=== PATIENT | female | born 1945 | race Caucasian/White ===

== ENCOUNTER → 2018-02-07 15:34 | Outpatient (CLI) | payer MEDICARE, OTHER, SELFPAY ==
--- NOTE | 2018-02-07 | DI.MRI.S_ITS ---
PROCEDURE: MR KNEE RT WO CON INDICATIONS: Right knee osteoarthritis TECHNIQUE: Noncontrast sagittal PD fast spin echo and T2 fast spin echo with fat saturation, sagittal 3-D FLASH with fat saturation; coronal T1 spin echo and PD fast spin echo with fat saturation, and axial PD fast spin echo with fat saturation through the knee. COMPARISON: [facility], MR, KNEE WITHOUT CONTRAST, 01/21/2016, 16:56. [facility], MR, KNEE WITHOUT CONTRAST, 01/21/2016, 16:33. FINDINGS: Image quality: Excellent. Menisci: The medial and lateral menisci demonstrate mild to moderate degenerative morphology and internal signal. A meniscal tear is not seen, however The meniscal root ligaments appear intact. Cruciate ligaments: The anterior and posterior cruciate ligaments appear intact. Medial structures: The medial collateral ligament appears intact. The posterior oblique ligament, semimembranosus tendon insertions, oblique popliteal ligament, and meniscocapsular junction appear intact. Visualized portions of the pes anserinus tendons appear normal. No abnormal bursal fluid. Lateral structures: The lateral collateral ligament, long and short heads of the biceps femoris tendon appear intact. The popliteus tendon appears normal; the popliteofibular ligament appears intact. The posterosuperior and anteroinferior popliteomeniscal fascicles appear intact. The arcuate and fabellofibular ligaments appear intact, on either side of the lateral inferior geniculate artery. Iliotibial band appears normal. Anterior structures: The quadriceps and patellar tendons appear intact. Patellar alignment is normal. No femoral trochlear dysplasia or ventral trochlear prominence. No edema in the infrapatellar fat pad. Bones and cartilage: No bone marrow contusions or fractures. The cartilage of the medial and lateral femorotibial compartments, as well as the patellofemoral compartment, appears moderately regressed in thickness. Joint space: There is a moderate excess of knee joint fluid without visualized intra-articular loose body. There is a small posterior medial Elam's cyst and immediately adjacent synovial protrusion more medially. Normal appearing synovial plicae are incidentally noted. IMPRESSION: Moderate degeneration involves the medial and lateral meniscus without meniscal tear. There is a moderate degree of degenerative knee joint osteoarthritis with joint with thinning involving all compartments, and with an associated moderate joint effusion. No intra-articular loose body is seen. The degree of degeneration appears to mildly worsened from 5/5/16 comparison MRI. No ligamentous disruption is found. As noted above there is a relatively small Elam's cyst and medial synovial protrusion at the posterior medial knee, previously present without significant increase in size over time from 2016 Dictated by: Donald Beck M.D. on 02/07/2018 at 16:57 Approved by: Donald Beck M.D. on 02/07/2018 at 17:05
== END ==
PROVIDERS: PCP Physician Assistant; Visit Provider Orthopaedic Surgery
DX: M17.11 Unilateral primary osteoarthritis, right knee (principal); M71.21 Synovial cyst of popliteal space [Baker], right knee
CPT/HCPCS: 73721

== ENCOUNTER → 2018-02-21 07:23 | Outpatient (CLI) | payer MEDICARE, OTHER, SELFPAY ==
--- NOTE | 2018-02-21 07:26 | DI.MRI.S_ITS ---
PROCEDURE: MR LUMBAR SPINE WO CON INDICATIONS: Lumbar Stenosis with Bilateral LE symptoms TECHNIQUE: Noncontrast sagittal T1 spin echo and T2 fast echo, sagittal STIR, axial T1 and T2 fast spin echo through the lumbar spine. In cases with scoliosis, additional coronal T2 fast spin echo may be performed. COMPARISON: [facility], , L-SPINE WITHOUT CONTRAST, 03/03/2014, 7:18. FINDINGS: Image quality: Excellent. Alignment and Curvature: There is normal bony alignment. Bone Marrow: Marrow is of normal overall signal. No acute vertebral body compression fractures. Spinal Cord: Conus medullaris terminates at the T12 level. Visualized cord demonstrates normal signal and size. Paraspinous Soft Tissues: No paravertebral masses. L1-L2: Mild disc bulge. Mild facet and ligamentum flavum hypertrophy. No canal stenosis. No foraminal narrowing. These findings are unchanged when compared with the prior MRI dated 03/03/14. L2-L3: Mild disc bulge. Mild facet ligamentum flavum hypertrophy. No canal stenosis. No foraminal stenosis. L3-L4: Mild disc desiccation and height loss. Broad-based disc bulge. Mild facet and ligamentum flavum hypertrophy. These findings are unchanged. L4-L5: Broad-based disc bulge. Mild facet and ligamentum flavum hypertrophy. No canal stenosis or foraminal narrowing. Stable findings from the prior study. L5-S1: Mild disc bulge. Moderate facet and ligamentum flavum hypertrophy. The degree of facet hypertrophy is slightly increased when compared with the prior study. No canal stenosis or neuroforaminal stenosis. IMPRESSION: 1. No canal stenosis or foraminal stenosis of the lumbar spine. 2. Mild facet and ligamentum flavum hypertrophy slightly increased in extent at L5-S1 when compared with the study dated 03/03/14. Dictated by: Ashanti Cavanaugh M.D. on 02/21/2018 at 8:39 Approved by: Ashanti Cavanaugh M.D. on 02/21/2018 at 8:46
== END ==
PROVIDERS: PCP Physician Assistant; Visit Provider Physical Medicine & Rehabilitation
DX: M48.061 Spinal stenosis, lumbar region without neurogenic claudication (principal); M46.06 Spinal enthesopathy, lumbar region
CPT/HCPCS: 72148

== ENCOUNTER → 2018-02-26 08:16 | Outpatient (CLI) | payer MEDICARE, OTHER, SELFPAY ==
[2018-02-26 09:26] LABS: Cholesterol 152 mg/dL (140-199); HDL Cholesterol 62 mg/dL (40-60); LDL Cholesterol Calculated 78 mg/dL (<100); Triglycerides 62 mg/dL (35-150)
== END ==
PROVIDERS: PCP Physician Assistant; Visit Provider Physician Assistant
DX: E78.5 Hyperlipidemia, unspecified (principal)
CPT/HCPCS: 36415; 80061

== ENCOUNTER → 2018-05-04 12:37 | Outpatient (CLI) | payer MEDICARE, OTHER, SELFPAY ==
--- NOTE | 2018-05-04 | DI.MRI.S_ITS ---
PROCEDURE: MR CERVICAL SPINE WO CON INDICATIONS: CERVICAL SPINE PAIN TECHNIQUE: Noncontrast sagittal T1 spin echo and T2 fast spin echo, sagittal STIR, foraminal oblique sagittal T2 fast spin echo, and axial gradient echo or T2 fast spin echo through the cervical spine. COMPARISON: None. FINDINGS: Image quality: Excellent. Alignment and Curvature: There is loss of normal lumbar lordosis, and otherwise normal bony alignment. Bone Marrow: Marrow demonstrates normal overall signal. There is mild reactive signal within the endplates adjacent to the C3-C4, C4-C5, C5-C6, and C6-C7 intervertebral discs. Spinal Cord: Visualized spinal cord has normal size and signal. No cerebellar tonsillar herniation. Paraspinous Soft Tissues: No paravertebral masses. Prevertebral soft tissues are normal in thickness. C2-C3: There is mild disc desiccation and diffuse disc bulge. Mild facet and uncovertebral hypertrophy, right greater than left. There is mild canal stenosis. Mild right foraminal stenosis. No left foraminal stenosis. C3-C4: Mild disc desiccation and diffuse disc bulge superimposed right posterior lateral protrusion. Right greater than left facet and uncovertebral hypertrophy. Mild canal stenosis. Moderate right and mild left foraminal stenosis. C4-C5: Moderate disc desiccation and diffuse disc bulge with superimposed left posterolateral protrusion. Mild disc height loss. Bilateral facet and uncovertebral hypertrophy. Mild canal stenosis. Severe left and moderate right foraminal stenosis. C5-C6: Moderate disc height loss and desiccation. Moderate diffuse disc bulge with superimposed right paracentral and posterolateral protrusion/osteophyte. Bilateral facet and uncovertebral hypertrophy. Moderate canal stenosis. Minimal right anterior cord flattening. Mild left and moderate right foraminal stenosis. C6-C7: Moderate disc height loss and desiccation. Moderate diffuse disc bulge/osteophyte. Mild facet and uncovertebral hypertrophy bilaterally. Mild canal stenosis. Mild foraminal stenosis bilaterally. C7-T1: Disc desiccation. Mild facet hypertrophy bilaterally. No significant canal, nor foraminal stenosis. IMPRESSION: 1. Multilevel degenerative disc and facet disease, as well as uncovertebral hypertrophy. 2. Multilevel canal stenoses, worst at C5-C6, where there is minimal cord flattening. 3. Multilevel foraminal stenoses, worst at C3-C4 on the right, at C4-C5 left greater than right, and at C5-C6 on the right. Dictated by: Kobe Ramírez M.D. on 05/04/2018 at 14:23 Approved by: Kobe Ramírez M.D. on 05/04/2018 at 14:28
== END ==
PROVIDERS: PCP Physician Assistant; Visit Provider Physical Medicine & Rehabilitation
DX: M50.31 Other cervical disc degeneration, high cervical region (principal); M48.02 Spinal stenosis, cervical region
CPT/HCPCS: 72141

== ENCOUNTER → 2018-12-10 07:58 | Outpatient (CLI) | payer MEDICARE, OTHER, SELFPAY ==
[2018-12-10 09:22] LABS: Alanine Aminotransferase 25 IU/L (9-52); Albumin 4.1 g/dL (3.5-5.0); Albumin Globulin Ratio 1.6 (1.0-2.8); Alkaline Phosphatase 39 U/L (38-126); Aspartate Aminotransferase 19 IU/L (14-36); BUN Creatinine Ratio 26.7 (6-22); Bilirubin Total 0.6 mg/dL (0.2-1.3); Blood Urea Nitrogen 24 mg/dL (7-17); Carbon Dioxide 30 mmol/L (22-32); Chloride 100 mmol/L (98-107); Cholesterol 147 mg/dL (140-199); Estimated Glomerular Filt Rate > 60.0 mL/min (>60); Globulin 2.6 g/dL (1.7-4.1); Glucose 98 mg/dL (80-110); HDL Cholesterol 53 mg/dL (40-60); HEMOLYSIS < 15 (0-50); LDL Cholesterol Calculated 80 mg/dL (<100); Potassium 3.8 mmol/L (3.4-5.1); Sodium 139 mmol/L (137-145); Total Protein 6.7 g/dL (6.3-8.2); Triglycerides 72 mg/dL (35-150); Uric Acid 7.6 mg/dL (2.5-6.2)
[2018-12-10 09:40] LABS: Creatinine Urine Random 39.7 mg/dL
[2018-12-10 09:46] LABS: Microalbumi Creatinin Ratio Ur 15.1 ug/mg CR (<30); Microalbumin Urine Random < 0.6 mg/dL (0-1.6)
== END ==
PROVIDERS: PCP Physician Assistant; Visit Provider Physician Assistant
DX: E78.5 Hyperlipidemia, unspecified (principal); E79.0 Hyperuricemia without signs of inflammatory arthritis and tophaceous disease; I10 Essential (primary) hypertension; R73.01 Impaired fasting glucose
CPT/HCPCS: 80053; 80061; 82043; 82570; 84550

== ENCOUNTER → 2019-01-07 12:08 | Outpatient (CLI) | payer MEDICARE, OTHER, SELFPAY ==
--- NOTE | 2019-01-07 | DI.MG.S_ITS ---
BILATERAL DIGITAL SCREENING MAMMOGRAM 3D/2D WITH CAD: 01/07/2019 CLINICAL: Routine screening. Comparison is made to exams dated: 12/20/2017 mammogram, 11/28/2016 mammogram, and 11/24/2015 mammogram - [facility]. The tissue of both breasts is predominantly fatty. Current study was also evaluated with a Computer Aided Detection (CAD) system. No significant masses, calcifications, or other findings are seen in either breast. There has been no significant interval change. IMPRESSION: NEGATIVE There is no mammographic evidence of malignancy. A 1 year screening mammogram is recommended. This exam was interpreted at Station ID: [id number]. NOTE: For mammograms, a report in lay terms will be sent to the patient. Approximately 15% of breast malignancies will not be visualized mammographically. In the management of a palpable breast mass, a negative mammogram must not discourage biopsy of a clinically suspicious lesion. Electronically Signed By: Ashanti hart/garima:01/07/2019 15:13:17 letter sent: Normal Exam ACR BI-RADS Category 1: Negative 3341F
== END ==
PROVIDERS: PCP Physician Assistant; Visit Provider Physician Assistant
DX: Z12.31 Encounter for screening mammogram for malignant neoplasm of breast (principal)
CPT/HCPCS: 77063; 77067

== ENCOUNTER → 2019-03-27 08:12 | Outpatient (CLI) | payer MEDICARE, OTHER, SELFPAY ==
--- NOTE | 2019-03-27 08:16 | DI.RAD.S_ITS ---
PROCEDURE: XR LUMBAR SPINE MIN 4V INDICATIONS: lumbar axial back pain TECHNIQUE: 5 views of the lumbar spine acquired. COMPARISON: [facility], , L-SPINE 2-3 VIEWS, 11/15/2013, 10:31. FINDINGS: Bones: 5 nonrib-bearing vertebrae are present. There is normal bony alignment. No vertebral body compression fractures. No suspicious bony lesions. Mild degenerative disc disease is seen along the thoracolumbar junction and lumbosacral spine. This has only slightly worsened from the comparison study 11/15/13. No subluxation is associated Soft tissues: Overlying bowel gas pattern is normal. No suspicious soft tissue calcifications. Flexion/extension: There is normal range of motion, with preserved normal alignment. IMPRESSION: Mild degenerative disc disease and facet osteoarthritis along the thoracolumbar junction and lumbosacral spine without evidence of compression fracture or subluxation having developed in the interval. Major degenerative changes are most prominent at L4-5 and especially L5-S1 where spinal and foraminal stenosis likely is present. Dictated by: Donald Beck M.D. on 03/27/2019 at 9:37 Approved by: Donald Beck M.D. on 03/27/2019 at 9:38
== END ==
PROVIDERS: Family Provider Physician Assistant; PCP Physician Assistant; Visit Provider Registered Nurse
DX: M54.5 Low back pain (principal); M51.35 Other intervertebral disc degeneration, thoracolumbar region; M51.37 Other intervertebral disc degeneration, lumbosacral region; M47.815 Spondylosis without myelopathy or radiculopathy, thoracolumbar region; M47.816 Spondylosis without myelopathy or radiculopathy, lumbar region; M47.817 Spondylosis without myelopathy or radiculopathy, lumbosacral region
CPT/HCPCS: 72110

== ENCOUNTER 2019-04-04 12:27 | Outpatient (CLI) | payer MEDICARE, OTHER, SELFPAY ==
[2019-04-04] VITALS (8 sets, daily range): BP systolic 110–135; BP diastolic 66–76; PULSE 62–77; RESP 16–20; TEMP 36.7; O2SAT 97–100
--- NOTE | 2019-04-04 12:28 | DI.RAD.S_ITS ---
PROCEDURE: PAIN L/SI FACET INJ/BLK 1STL INDICATIONS: SPONDYLOSIS FINDINGS: Fluoroscopic spot filming was performed to verify placement of spinal needles at the L4-5, L5-S1 level(s), as labeled on the films. Appropriate location(s) of the needle tip(s) was confirmed by injection of iodinated contrast. Dictated by: Freddy Rivas M.D. on 04/04/2019 at 14:44 Approved by: Freddy Rivas M.D. on 04/04/2019 at 14:44
[2019-04-04] MEDS: MIDAZOLAM 5 MG/5 ML VIAL IV (13:30)
--- NOTE | 2019-04-04 13:41 | PC.NURSE ---
Pt tolerated procedure well. Able to get off table with 2 person standby assist. Transferred pt via wheelchair to pre procedure room for continued monitoring with Sulma MELENDEZ.
--- NOTE | 2019-04-04 13:45 | P.PCN_ITS ---
Procedures Date/Time Date of procedure: 04/04/19 Time of procedure: 13:44 General Procedure description: PREOP DIAGNOSIS 1. FACET ARTHROPATHY, 2. AXIAL LBP, 3. MULTILEVEL DDD, POST OP DIAGNOSIS 1. FACET ARTHROPATHY, 2. AXIAL LBP, 3. MULTILEVEL DDD, PROCEDURES 1. FLUORSCOPICALLY GUIDED CONTRAST CONTROLLED FACET JOINT INJECTIONS LEFT L4/5, L5/S1 SURGEON: Héctor Perez, DO INDICATIONS Christen is referred by ANUJ Matthews for treatment of Axial LBP FINDINGS Multilevel Facet Arthropathy with Clinically significant axial LBP DESCRIPTION OF PROCEDURE Fluoroscopically guided, contrast-controlled left L4/5, L5/S1 facet joint injections. Following review of allergy and review of potential side effects and complications, including, but not necessarily limited to, infection, allergic reaction, local tissue breakdown, stroke, temporary or permanent nerve injury, paralysis, and possible , the patient indicated that the patient understood and agreed to proceed. An informed consent document was signed by the patient, witnessed by a nurse, and placed in the patient's chart. Additionally, other treatment options including medications, modalities, and physical therapy were reviewed with the patient. After review of previous anaesthesic history and IV conscious sedation the patient was deemed safe to proceed with todays procedure with IV conscious sedation as ASA class II designation. Safety time-out was performed to confirm patient ID, procedure to be performed and site of procedure. IV sedation was accomplished with a combination of 2mg of Versed was administered by the RN after DO order, titrated to patient comfort during the course of the procedure while the patient remained responsive to all verbal commands. In the prone position, following sterile prep and drape of the lumbar region, the posterior aspect of the left L4/5, L5/S1 facet joints were identified fluoroscopically. The skin was anesthetized via a 25-gauge 1.5-inch needle with 1% lidocaine solution into the corresponding facet joints. At this point, a 22- gauge 3.5-inch spinal needle was atraumatically introduced and advanced under fluoroscopic guidance into the corresponding facet joints. Following negative aspiration, injections of approximately 0.2-cc of Isovue 200 confirmed interarticular placement without vascular uptake. Radiological data, including multiple fluoroscopic views of the lumbosacral spine, reveal a spinal needle at the left L4/5, L5/S1 facet joints. Subsequent views show flow of contrast material both superiorly and inferiorly within the joint space without vascular or intrathecal uptake. At this point, a total of 0.5 cc including a mixture of 0.25cc Marcaine and 0.25cc betamethasone was injected without complication into each of the corresponding facet joints. The procedure tolerated the procedure well without signs or symptoms of complications prior to transfer to the recovery area continued monitoring without incident. The patient was then transferred to the recovery area where they were observed for an appropriate period of time after the injection. The patient reported a VAS score of 7 prior to the procedure and a post-procedure VAS of 0. Total Fluoroscopy Time: 12.7 seconds Total Conscious Sedation Time: 24min POST OP INSTRUCTIONS The patient was provided a Pain Log to continue to record their response to the target-specific procedure prior to follow-up visit with their referring physician. Additionally, specific post-injection care instructions and a contact number to our office were provided if concerns arise regarding possible complications associated with the procedure are suspected. Héctor Perez, Complications: none
[2019-04-04] MEDS: BUPIVACAINE 0.5% (PF) VIAL 2 ML INJ (13:49)
[2019-04-04] MEDS: IOPAMIDOL 15 ML VIAL 3 ML INJ (13:49)
[2019-04-04] MEDS: LIDOCAINE 1% 20 ML INJ 5 ML INJ (13:50)
[2019-04-04] MEDS: BETAMETHASONE 30 MG/5 ML MDV 12 MG INJ (13:50)
== END 2019-04-04 14:06 ==
LOC: RAD 12:28
PROVIDERS: Family Provider Physician Assistant; PCP Physician Assistant; Visit Provider Physical Medicine & Rehabilitation
DX: M47.816 Spondylosis without myelopathy or radiculopathy, lumbar region (principal); M47.817 Spondylosis without myelopathy or radiculopathy, lumbosacral region; M54.5 Low back pain; M51.36 Other intervertebral disc degeneration, lumbar region
CPT/HCPCS: 64493; 64494; 99152; J0702; J2250; J3010

== ENCOUNTER → 2019-04-18 09:33 | Outpatient (CLI) | payer MEDICARE, OTHER, SELFPAY ==
--- NOTE | 2019-04-18 09:35 | DI.RAD.S_ITS ---
PROCEDURE: XR HIP W PEL IF DONE LT MIN 4V INDICATIONS: left hip pain TECHNIQUE: AP pelvis with lateral view(s) of the bilateral hip(s). COMPARISON: [facility], , HIP 2V LEFT, 03/03/2014, 7:57. [facility], , HIP 2V LEFT, 11/07/2012, 12:48. FINDINGS: Bones: No fractures or dislocations. Pelvic ring appears intact. No suspicious bony lesions. Soft tissues: The visualized bowel gas pattern is normal. No suspicious soft tissue calcifications. IMPRESSION: Mild degenerative hip joint osteoarthritis is indicated by slight reduction in the hip joint interspace. No trauma phalan, either acute or chronic. Dictated by: Donald Beck M.D. on 04/18/2019 at 10:14 Approved by: Donald Beck M.D. on 04/18/2019 at 10:15
== END ==
PROVIDERS: Family Provider Physician Assistant; PCP Physician Assistant; Visit Provider Registered Nurse
DX: M25.552 Pain in left hip (principal); M70.62 Trochanteric bursitis, left hip; M16.12 Unilateral primary osteoarthritis, left hip; M47.817 Spondylosis without myelopathy or radiculopathy, lumbosacral region; M47.27 Other spondylosis with radiculopathy, lumbosacral region; M17.11 Unilateral primary osteoarthritis, right knee; M48.02 Spinal stenosis, cervical region; M70.61 Trochanteric bursitis, right hip; M50.30 Other cervical disc degeneration, unspecified cervical region; M85.80 Other specified disorders of bone density and structure, unspecified site; M70.72 Other bursitis of hip, left hip; D12.6 Benign neoplasm of colon, unspecified; I10 Essential (primary) hypertension; E78.5 Hyperlipidemia, unspecified; E79.0 Hyperuricemia without signs of inflammatory arthritis and tophaceous disease
CPT/HCPCS: 73522; 99214

== ENCOUNTER 2019-05-23 13:55 | Outpatient (CLI) | payer MEDICARE, OTHER, SELFPAY ==
--- NOTE | 2019-05-23 13:58 | DI.RAD.S_ITS ---
PROCEDURE: PAIN L/S TRANSFORAMINAL INJECT INDICATIONS: SPONDYLOSIS FINDINGS: Fluoroscopic spot filming was performed to verify placement of spinal needles at the L5-S1 level(s), as labeled on the films. Appropriate location(s) of the needle tip(s) was confirmed by injection of iodinated contrast. IMPRESSION: Fluoroscopy for pain management. Dictated by: Mee Mc M.D. on 05/23/2019 at 15:17 Approved by: Mee Mc M.D. on 05/23/2019 at 15:17
[2019-05-23 14:26] VITALS: BP 128/67; PULSE 70; RESP 16; O2SAT 97
[2019-05-23] MEDS: fentaNYL 100 MCG/2 ML INJ 50 MCG IV (14:27)
[2019-05-23] MEDS: MIDAZOLAM 5 MG/5 ML VIAL IV (14:27)
[2019-05-23 14:30] VITALS: BP 120/63; PULSE 69; RESP 16; O2SAT 95
[2019-05-23 14:34] VITALS: BP 107/69; PULSE 64; RESP 16; O2SAT 95
[2019-05-23] MEDS: DEXAMETHASONE 10 MG/ML VIAL 20 MG INJ (14:34)
[2019-05-23] MEDS: IOPAMIDOL 15 ML VIAL 3 ML INJ (14:34)
[2019-05-23] MEDS: BUPIVACAINE 0.25% (PF) VIAL 2 ML INJ (14:34)
[2019-05-23] MEDS: BETAMETHASONE 30 MG/5 ML MDV 6 MG INJ (14:34)
--- NOTE | 2019-05-23 14:35 | PC.NURSE ---
ASSISTING PT OFF TABLE AND TRANSPORTING TO POST PROC AREA IN STABLE CONDITION. PT CARE HANDED OFF TO Rosemary SCOTT RN
--- NOTE | 2019-05-23 14:37 | P.PCN_ITS ---
Procedures Date/Time Date of procedure: 05/23/19 Time of procedure: 14:37 General Procedure description: PREOP DIAGNOSIS 1. FORMAINAL STENOSIS WITH LE SYMPTOMS POST OP DIAGNOSIS 1. FORMAINAL STENOSIS WITH LE SYMPTOMS PROCEDURES 1. FLUOROSCOPICALLY GUIDED CONTRAST CONTROLLED TRANSFORAMINAL EPIDURAL STEROID INJECTION - Left L5/S1 PHYSICIAN: Héctor Perez DO INDICATIONS: Christen is referred by PAC Byron for treatment of Foraminal Stenosis with Left LE Symptoms FINDINGS Foraminal Nerve Root Compression secondary to disc disease and facet hypertrophy DESCRIPTION OF PROCEDURE: Following review of allergy and review of potential side effects and complications, including, but not necessarily limited to, infection, allergic reaction, local tissue breakdown, stroke, temporary or permanent nerve injury, paralysis, and possible , the patient indicated that the patient understood and agreed to proceed. An informed consent document was signed by the patient, witnessed by a nurse, and placed in the patient's chart. Additionally, other treatment options including medications, modalities, and physical therapy were reviewed with the patient. After review of previous anaesthesic history and IV conscious sedation the pat ient was deemed safe to proceed with todays procedure with IV conscious sedation as ASA class II designation. Safety time-out was performed to confirm patient ID, procedure to be performed and site of procedure. IV sedation was accomplished with a combination of 2mg of Versed and 50mcg of Fentanyl was administered by the RN after DO order, titrated to patient comfort during the course of the procedure while the patient remained responsive to all verbal commands In the prone position following sterile prep and drape of the lumbar region, the Left L5/S1 posterior neuroforamen was identified fluoroscopically. The skin was anesthetized via a 25-gauge 1.5-inch needle with 1% lidocaine solution. At this point, a 25-gauge 3.5-inch spinal needle was atraumatically introduced and advanced under fluoroscopic guidance through the posterior Left L5/S1 neuroforamen to approximately the anterior aspect of the canal. Depth was confirmed on lateral view. Following negative aspiration, injection of approximately 1.5 cc of Isovue 200 under live fluoroscopy in the AP view confirmed excellent flow along the nerve root, into the epidural space without vascular or intrathecal uptake observed Radiological data, including multiple fluoroscopic views of the lumbosacral spine, reveal a spinal needle at the Left L5/S1 posterior neuroforamen. Subsequent views show flow of contrast material flowing superiorly and inferiorly along the nerve root confirming epidural flow. Subsequently, a test dose of 1.5 cc of 1% lidocaine solution was administered and patient was observed for two minutes for signs or symptoms of complications, including abdominal pain, shortness of breath, bilateral upper or lower extremity weakness, nausea and vomiting, prior to steroid injection. At this point, a total of 3cc or 20mg of dexamethasone and 6mg of betamethasone was injected without incident. The procedure tolerated the procedure well without signs or symptoms of complications prior to transfer to the recovery area continued monitoring without incident. The patient was then transferred to the recovery area where they were observed for an appropriate time after the injection. The patient reported a VAS score of 7 prior to the procedure and a post-procedure VAS of 0. Total Fluoroscopy Time: 20.9 seconds Total Conscious Sedation Time: 24min POST OP INSTRUCTIONS The patient was provided a Pain Log to continue to record their response to the target-specific procedure prior to follow-up visit with their referring physician. Additionally, specific post-injection care instructions and a contact number to our office were provided if concerns arise regarding possible complications associated with the procedure are suspected. Héctor Perez DO Complications: none
[2019-05-23 14:45] VITALS: BP 108/61; PULSE 96; RESP 16; O2SAT 95
[2019-05-23 14:50] VITALS: BP 104/66; PULSE 61; RESP 16; O2SAT 96
[2019-05-23 14:54] VITALS: BP 102/60; PULSE 60; RESP 16; O2SAT 94
--- NOTE | 2019-05-23 15:05 | PC.NURSE ---
Patient back from procedure via w/c at 1430. Patient alert and able to move from w/c to chair w2ith standby assist. Braeden RN taking over monitoring.
== END 2019-05-23 15:09 | disposition home or self-care (01) ==
LOC: RAD 13:56
PROVIDERS: Family Provider Physician Assistant; PCP Physician Assistant; Visit Provider Physical Medicine & Rehabilitation
DX: M48.07 Spinal stenosis, lumbosacral region (principal); M51.17 Intervertebral disc disorders with radiculopathy, lumbosacral region; M47.27 Other spondylosis with radiculopathy, lumbosacral region
CPT/HCPCS: 64483; 99152; J0702; J1100; J2250; J3010

== ENCOUNTER → 2019-06-26 07:57 | Outpatient (CLI) | payer MEDICARE, OTHER, SELFPAY ==
[2019-06-26 09:21] LABS: BUN Creatinine Ratio 25.6 (6-22); Blood Urea Nitrogen 23 mg/dL (7-17); Calcium 10.6 mg/dL (8.4-10.2); Carbon Dioxide 32 mmol/L (22-32); Chloride 101 mmol/L (98-107); Estimated Glomerular Filt Rate > 60.0 mL/min (>60); Glucose 92 mg/dL (80-110); HEMOLYSIS < 15 (0-50); Potassium 3.8 mmol/L (3.4-5.1); Sodium 141 mmol/L (137-145)
== END ==
PROVIDERS: PCP Physician Assistant; Visit Provider Physician Assistant
DX: E78.5 Hyperlipidemia, unspecified (principal); I10 Essential (primary) hypertension
CPT/HCPCS: 36415; 80048

== ENCOUNTER → 2019-07-29 08:38 | Outpatient (CLI) | payer MEDICARE, OTHER, SELFPAY ==
[2019-07-29 10:04] LABS: Calcium 9.7 mg/dL (8.4-10.2)
[2019-07-29 10:45] LABS: Creatinine Urine Random 23.7 mg/dL
[2019-07-29 10:52] LABS: Microalbumi Creatinin Ratio Ur 25.3 ug/mg CR (<30); Microalbumin Urine Random < 0.6 mg/dL (0-1.6)
[2019-07-31 13:44] LABS: Ionized Calcium 5.3 mg/dL (4.8-5.6)
[2019-08-02 15:45] LABS: Parathyroid Hormone Int 20 pg/mL (14-64)
== END ==
PROVIDERS: PCP Physician Assistant; Visit Provider Physician Assistant
DX: E83.52 Hypercalcemia (principal); I10 Essential (primary) hypertension
CPT/HCPCS: 36415; 82043; 82310; 82330; 82570; 83970

== ENCOUNTER → 2019-11-21 15:34 | Outpatient (CLI) | payer MEDICARE, OTHER, SELFPAY ==
--- NOTE | 2019-11-21 | DI.MRI.S_ITS ---
PROCEDURE: MR LUMBAR SPINE WO CON INDICATIONS: Other intervertebral disc degeneration TECHNIQUE: Noncontrast sagittal T1 spin echo and T2 fast echo, sagittal STIR, axial T1 and T2 fast spin echo through the lumbar spine. In cases with scoliosis, additional coronal T2 fast spin echo may be performed. COMPARISON: [facility], MR, MR LUMBAR SPINE WO CON, 02/21/2018, 7:41. FINDINGS: Image quality: Excellent. Alignment and Curvature: There is trace retrolisthesis of L2 on L3, L3 on L4, trace anterolisthesis of L4-L5 and L5 on S1, unchanged. Bone Marrow: Marrow is of normal overall signal. Schmorl's node with very minimal surrounding reactive marrow edema is present along the inferior endplate of L3 as well as oral. No acute vertebral body compression fractures. Spinal Cord: Conus medullaris terminates at the L1 level. Visualized cord demonstrates normal signal and size. Paraspinous Soft Tissues: No paravertebral masses. Right renal cyst is noted. Discs: Mild to moderate desiccation is present from L2-3 through L5-S1, minimal to mild at L1-L2. L1-L2: Minimal disc bulge without spinal stenosis or foraminal narrowing. Mild facet and ligamentum flavum hypertrophy. No interval change. L2-L3: Minimal disc bulge without spinal stenosis or foraminal narrowing. No interval change. Minimal epidural lipomatosis. L3-L4: Minimal disc bulge without spinal stenosis. Minimal to mild right foraminal narrowing, slightly progressive. Facet and ligamentum flavum hypertrophy are present as well as epidural lipomatosis. L4-L5: Mild disc bulge with minimal spinal stenosis. No foraminal narrowing. No interval change. L5-S1: Mild disc bulge without spinal stenosis. No foraminal narrowing. Facet and ligamentum flavum hypertrophy are present slightly more prominent. IMPRESSION: 1. Relatively stable interval examination demonstrate multiple levels of relatively mild degenerative change. 2. Foraminal narrowing is most prominent at L3-4 secondary to facet arthropathy. Dictated by: Krupa Boateng M.D. on 11/21/2019 at 17:57 Approved by: Krupa Boateng M.D. on 11/21/2019 at 18:02
== END ==
PROVIDERS: PCP Physician Assistant; Referring Provider Orthopaedic Surgery; Visit Provider Orthopaedic Surgery
DX: M51.36 Other intervertebral disc degeneration, lumbar region (principal); M47.816 Spondylosis without myelopathy or radiculopathy, lumbar region; M48.061 Spinal stenosis, lumbar region without neurogenic claudication
CPT/HCPCS: 72148

== ENCOUNTER → 2020-01-30 09:28 | Outpatient (CLI) | payer MEDICARE, OTHER, SELFPAY ==
[2020-01-31 01:29] LABS: COVID19 Sendout Not Detected (Not Detect)
== END ==
PROVIDERS: PCP Physician Assistant; Visit Provider Family Medicine
DX: Z01.812 Encounter for preprocedural laboratory examination (principal)
CPT/HCPCS: 87635

== ENCOUNTER → 2020-03-18 07:35 | Outpatient (CLI) | payer MEDICARE, OTHER, SELFPAY ==
--- NOTE | 2020-03-18 | DI.MG.S_ITS ---
BILATERAL DIGITAL SCREENING MAMMOGRAM 3D/2D WITH CAD: 03/18/2020 CLINICAL: Routine screening. Comparison is made to exams dated: 01/07/2019 mammogram, 12/20/2017 mammogram, and 11/28/2016 mammogram - [facility]. The tissue of both breasts is predominantly fatty. Current study was also evaluated with a Computer Aided Detection (CAD) system. There are benign calcifications in both breasts. There also are benign vascular calcifications in both breasts. No significant masses, calcifications, or other findings are seen in either breast. There has been no significant interval change. IMPRESSION: There is no mammographic evidence of malignancy. A 1 year screening mammogram is recommended. This exam was interpreted at Station ID: [id number]. NOTE: For mammograms, a report in lay terms will be sent to the patient. Approximately 15% of breast malignancies will not be visualized mammographically. In the management of a palpable breast mass, a negative mammogram must not discourage biopsy of a clinically suspicious lesion. Electronically Signed By: Papo khan/garima:03/18/2020 13:56:43 letter sent: Normal Exam ACR BI-RADS Category 2: Benign Finding(s) 3342F
[2020-03-18 08:04] LABS: Bacteria Urine None Seen
[2020-03-18 08:23] LABS: Hematocrit 39.6 % (36-46); Hemoglobin 13.8 g/dL (12.0-16.0); Mean Corpuscular HGB Conc 34.8 % (30-36); Mean Corpuscular Hemoglobin 32.2 PG (26-34); Mean Corpuscular Volume 92.7 fL (80-100); Platelet Count 187 X10^3/uL (150-400); Red Blood Cell Count 4.28 X10^6/uL (4.0-5.2); Red Cell Distribution Width 14.1 % (11.6-14.8)
[2020-03-18 08:32] LABS: Appearance Urine UA CLEAR; Bilirubin Urine UA NEGATIVE (NEGATIVE); Color Urine UA YELLOW; Glucose Urine UA NEGATIVE (Negative); Ketones Urine UA NEGATIVE (NEGATIVE); Leukocyte Esterase Urine UA 2+ (NEGATIVE); Nitrite Urine UA NEGATIVE (Negative); Occult Blood Urine UA TRACE-LYSED (Negative); Protein Urine UA NEGATIVE (Negative); Specific Gravity Urine UA <=1.005 (1.000-1.035); Urobilinogen Urine UA 0.2 E.U./dL (0.2)
[2020-03-18 08:44] LABS: RBC Urine 1-5/HPF (0-5/HPF); pH Urine UA 6.5 (4.5-8.0)
[2020-03-18 08:45] LABS: Creatinine Urine Random 39.8 mg/dL; Culture Indicated Urine Cult Not Indicated; Squamous Epithelial Cell Urine 1-5 /HPF (0-5/HPF); WBC Urine 5-10/HPF (0-5/HPF)
[2020-03-18 08:54] LABS: Microalbumin Urine Random < 0.6 mg/dL (0-1.6)
[2020-03-18 08:58] LABS: Alanine Aminotransferase 18 IU/L (<35); Albumin 3.8 g/dL (3.5-5.0); Albumin Globulin Ratio 1.5 (1.0-2.8); Alkaline Phosphatase 46 U/L (38-126); Aspartate Aminotransferase 21 IU/L (14-36); BUN Creatinine Ratio 23.5 (6-22); Bilirubin Total 0.6 mg/dL (0.2-1.3); Blood Urea Nitrogen 19 mg/dL (7-17); Calcium 9.8 mg/dL (8.4-10.2); Carbon Dioxide 31 mmol/L (22-32); Chloride 101 mmol/L (98-107); Cholesterol 143 mg/dL (140-199); Estimated Glomerular Filt Rate > 60.0 mL/min (>60); Globulin 2.6 g/dL (1.7-4.1); Glucose 108 mg/dL (80-110); HDL Cholesterol 45 mg/dL (40-60); HEMOLYSIS < 15 (0-50); LDL Cholesterol Calculated 86 mg/dL (<100); Potassium 4.4 mmol/L (3.4-5.1); Sodium 136 mmol/L (137-145); Total Protein 6.4 g/dL (6.3-8.2); Triglycerides 60 mg/dL (35-150)
== END ==
PROVIDERS: PCP Nurse Practitioner Family; Referring Provider Nurse Practitioner Family; Visit Provider Nurse Practitioner Family
DX: Z12.31 Encounter for screening mammogram for malignant neoplasm of breast (principal); E78.5 Hyperlipidemia, unspecified; I10 Essential (primary) hypertension; Z13.6 Encounter for screening for cardiovascular disorders
CPT/HCPCS: 36415; 77063; 77067; 80053; 80061; 81001; 82043; 82570; 85027

== ENCOUNTER → 2020-04-02 08:30 | Outpatient (CLI) | payer MEDICARE, OTHER, SELFPAY ==
--- NOTE | 2020-04-02 08:31 | DI.US.S_ITS ---
PROCEDURE: US PELVIC COMPLETE INDICATIONS: PMB TECHNIQUE: Real-time scanning was performed of the pelvic organs, with image documentation. Additional endovaginal scanning was necessary due to incomplete visualization of the adnexal and endometrial structures by transabdominal scanning. COMPARISON: [facility], , RENAL COMPLETE, 03/12/2014, 8:53. FINDINGS: Transabdominal scanning: Limited scanning through the kidneys shows no hydronephrosis. A simple cyst is again seen involving the right kidney superiorly, which now measures 4.1 cm. No pathologic free abdominal or pelvic fluid. Endovaginal scanning: Uterus: Uterus is normal in size at 6.5 x 3 x 5.3 cm. The endometrium measures 1 mm in combined thickness. Scattered uterine calcifications can be seen. Prominent uterine vessels are seen. Ovaries: Neither ovary is seen. No adnexal masses are seen on either side. IMPRESSION: The endometrial stripe is not thickened in this patient with a presenting history of postmenopausal bleeding. No adnexal masses can be seen on either side. Uterine calcifications and prominent uterine vascularity can be seen. Dictated by: Rick Ace M.D. on 04/02/2020 at 10:10 Approved by: Rick Ace M.D. on 04/02/2020 at 10:14
== END ==
PROVIDERS: PCP Nurse Practitioner Family; Referring Provider Nurse Practitioner Family; Visit Provider Obstetrics & Gynecology
DX: N95.0 Postmenopausal bleeding (principal); N85.8 Other specified noninflammatory disorders of uterus
CPT/HCPCS: 76830; 76856

== ENCOUNTER → 2020-04-09 07:50 | Outpatient (CLI) | payer MEDICARE, OTHER, SELFPAY ==
[2020-04-09 07:54] LABS: RBC Urine None Seen (0-5/HPF)
[2020-04-09 08:03] LABS: Appearance Urine UA SL CLOUDY; Bilirubin Urine UA NEGATIVE (NEGATIVE); Color Urine UA YELLOW; Glucose Urine UA NEGATIVE (Negative); Ketones Urine UA NEGATIVE (NEGATIVE); Leukocyte Esterase Urine UA 1+ (NEGATIVE); Nitrite Urine UA NEGATIVE (Negative); Occult Blood Urine UA NEGATIVE (Negative); Protein Urine UA NEGATIVE (Negative); Specific Gravity Urine UA <=1.005 (1.000-1.035); Urobilinogen Urine UA 0.2 E.U./dL (0.2)
[2020-04-09 08:23] LABS: Amorphous Sediment Urine 2+; Bacteria Urine Many (>30); Culture Indicated Urine Cult Not Indicated; Squamous Epithelial Cell Urine 10-30 /HPF (0-5/HPF); WBC Urine 5-10/HPF (0-5/HPF)
== END ==
PROVIDERS: PCP Nurse Practitioner Family; Referring Provider Nurse Practitioner Family; Visit Provider Nurse Practitioner Family
DX: R31.29 Other microscopic hematuria (principal)
CPT/HCPCS: 81001

== ENCOUNTER → 2020-04-29 13:47 | Outpatient (CLI) | payer MEDICARE, OTHER, SELFPAY | PROVIDERS: PCP Nurse Practitioner Family; Referring Provider Nurse Practitioner Family; Visit Provider Nurse Practitioner Family | DX: M85.88 Other specified disorders of bone density and structure, other site (principal); Z78.0 Asymptomatic menopausal state | CPT/HCPCS: 77080 ==

== ENCOUNTER 2020-08-18 10:30 | Outpatient (RCR) | payer MEDICARE, OTHER, SELFPAY ==
--- NOTE | 2020-06-25 19:05 | PT.OIE ---
Current Diagnoses Trochanteric bursitis, right hip (06/25/20) Trochanteric bursitis, left hip (06/25/20) Uterovaginal prolapse, unspecified (06/25/20) Abnormal uterine and vaginal bleeding, unspecified (06/25/20) Past Medical History (Last Reviewed 05/07/20 @ 13:43 by Milena Palacios MD) Colon polyps (Resolved) Hyperlipidemia (Chronic 1999) Hypertension (Chronic 1999) Microscopic hematuria (Acute) Osteopenia (Chronic) Screening mammogram, encounter for (Acute) Visit Care Team Role Provider Type EMI Jose Family Provider Advanced Machine Cementer Primary Care Provider Specialty: Family Practice Address: [address] [place] [address], [id number] Email: [email or web address] Milena Palacios MD Attending Provider Physician Referring Provider Specialty: SLAT BASKET MAKER Address: [address] [place] [address], [id number] Email: Physical Therapy Initial Evaluation PT-OP-A Visit Information Start: 06/23/20 18:11 Freq: Status: Active Protocol: Document 06/25/20 13:31 LRN (Rec: 06/25/20 14:22 LRN [id number]) Out-Patient Physical Therapy Visit Information Visit Information Visit Type Initial Evaluation Visit Start Time 13:31 Visit Stop Time 14:21 Total Visit Minutes 50 Visit Number 1 Evaluation Information Evaluation Date 06/25/20 Precautions Precautions Low back pain, was severe prior to steroid injection. Neck and R shoulder pain resolved with injection. PT-OP-B Current Condition Start: 06/23/20 18:11 Freq: Status: Active Protocol: Document 06/25/20 13:31 LRN (Rec: 06/25/20 14:22 LRN [id number]) Current Condition History of Current Condition Onset Date Over a year ago. Current Complaints Urinary leakage walking to the bathroom if urge. History of Current Condition Physical therapy for fallen bladder. Had a shot in the R hip in January [address] Martinez with resolution of hip pain. Vaginal bleeding when pessary placed, two times, finally removed several months ago and bleeding stopped. Prior Treatments and Tests Pessary placed x 2, removed due to vaginal bleeding. Future Testing and Treatments Planned Next appt with Dr Palacios is next month. Developmental History Developmental History 2 children and one miscarriage , vaginal deliveries without complications. Denies urinary leakage after having children . Treatment Goals Patient/Caregiver Goals Leakage when in a car or meeting. Maintain continence in the presence of a strong urge. Independent on a HEP Prior Functional Status Baseline Function- ADL's Independent Baseline Function- Mobility Independent Current Functional Impairments (Reported) Functional Limitations- ADL's Urinary leakage (few drops) only with an urge. Personal Factors Other Personal Factors That May Effect History of back and R hip pain Therapy/Recovery , history of bleeding vaginally form pessary. PT-OP-C Subjective Start: 06/23/20 18:11 Freq: Status: Active Protocol: Document 06/25/20 13:31 LRN (Rec: 06/25/20 14:22 LRN [id number]) Patient Questionnaires Pelvic Pain and Urgency/Frequency Patient Symptom Scale Pelvic Pain Score 6 PT-OP-I Pelvic Floor Start: 06/23/20 18:11 Freq: Status: Active Protocol: Document 06/25/20 13:31 LRN (Rec: 06/26/20 18:35 LRN [id number]) Pelvic Floor Assessment Urine Pelvic Floor Surgery No Urinary Symptoms Prolapse Other Urinary Symptoms Urinary leakage walking in presence of a strong urge. Leakage Size Small Voiding Frequency 7-10 times a day Nocturia 2-3x Prolapse Cystocele Grade 2 Rectocele Grade 2 Prolapse Comments Pt bladder and rectum on bearing down is observed to bulge at least 1 cm above the vaginal opening. Perineal Descent Resting Present Bearing Present Contraction Ability Voluntary Contraction Weak Manual Muscle Testing Left 2 Manual Muscle Testing Right 0 Manual Muscle Testing Anterior 0 Manual Muscle Testing Posterior 3 Muscle Endurance (Seconds) 7 Number of Quick Contractions In 10 3 Seconds PT-OP-J Posture/Palpation/Skin Start: 06/23/20 18:11 Freq: Status: Active Protocol: Document 06/25/20 13:31 LRN (Rec: 06/26/20 18:35 LRN [id number]) Posture Evaluation Position Standing L-Spine Posture Shifted Left Pelvis Posture (L) Iliac Crest Superior Hip Posture (L) Flexed,(R) Flexed Comments Posture Comments Slight C-Curve of spine with apex on the right. PT-OP-K Range of Motion Start: 06/23/20 18:11 Freq: Status: Active Protocol: Document 06/25/20 13:31 LRN (Rec: 06/26/20 18:35 LRN [id number]) Lumbar Spine Range of Motion Lumbar Spine Active Degrees Testing Position Standing Flexion 83 Extension 40 Lateral Flexion Left 13 Lateral Flexion Right 10 Comments Trunk flexion is with 60 degs hip flexion. Trunk extension is with 20 degs hip extension. Hip Goniometric Range of Motion Hip Right Passive Testing Position Supine Straight Leg Raise 90 Abduction 30 Internal Rotation 45 External Rotation 40 Left Passive Testing Position Supine Straight Leg Raise 90 Abduction 40 Internal Rotation 35 External Rotation 60 PT-OP-M Strength Start: 06/23/20 18:11 Freq: Status: Active Protocol: Document 06/25/20 13:31 LRN (Rec: 06/26/20 18:35 LRN [id number]) Trunk Strength Trunk Manual Muscle Testing Core Stabilization Pt not able to maintain core stability with testing of hip muscle strength. Hip Strength Hip Manual Muscle Testing Right Abduction 4- Good- Internal Rotation 3+ Fair+ Comments Strength is 5/5 except as indicated above. Left External Rotation 4+ Good+ Internal Rotation 3+ Fair+ Comments Strength is 5/5 except as indicated above. PT-OP-Q Treatments Start: 06/23/20 18:11 Freq: Status: Active Protocol: Document 06/25/20 13:31 LRN (Rec: 06/25/20 14:22 LRN [id number]) Self-Care/Home Management Treatment Education Other Education Discussed goals and results of evaluation. Education: Pt educated in use of Bladder Diary and I/S in tracking for 1 week. Activities Self-Care/Home Management Activities Issued & reviewed HEP: Kegel ex's and discussed exercise of Quick Flicks, Long Holds and Aggravators. PT-OP-T Assessment and Plan Start: 06/23/20 18:11 Freq: Status: Active Protocol: Document 06/25/20 13:31 LRN (Rec: 06/25/20 14:22 LRN [id number]) Physical Therapy Assessment Rehab Potential Rehabilitation Potential Excellent Evaluation Complexity Number of Personal Factors/Comorbidities 0 Impairments Impairments Activity Tolerance Goals Five Impairment Decreased PF strength (L 2/5, R 0/5, anter 0/5, curriculum development specialist 3/5) Short Term Goal (STG) Improve PF strength of right side equal to left and anterior PF strength. STG Duration 08/07/20 [facility] Goal (LTG) Improve PF strength per Long Hold to 10 sec's and Quick Flicks 10 reps prior to fatigue to improve her level of continence in the presence of a strong urge. LTG Duration 10/23/20 Four Impairment Decr hip mobility symmetry (ER 40 R, 60 L; IR 45 R, 35 L; AB 30 R, 40 L) Short Term Goal (STG) Improve symmetry of hip mobility STG Duration 08/07/20 Department Of Sociology Chair Goal (LTG) Improve symmetry of PF strength with improved hip symmetry of motion. LTG Duration 09/24/20 Three Impairment Urinary urge with trigger of water flow. Short Term Goal (STG) Pt will be able to minimize urge onset of water flow trigger using delay urinary technique. STG Duration 07/30/20 Two Impairment Urinary leakage in the presence of a strong urge. Short Term Goal (STG) Pt will be educated in urinary delay technique. STG Duration 07/10/20 [facility] Goal (LTG) Pt will be able to maintain urinary continence in the presence of a strong urge. LTG Duration 09/24/20 One Impairment Pt lacks an independent self care HEP Short Term Goal (STG) Pt will be educated in performing a Kegel in isolation of substitute muscles and proper deep breathing with reflexive activation of her transverse abdominals. STG Duration 07/30/20 [facility] Goal (LTG) Pt will be independent in a self care HEP for PF strengthening. LTG Duration 09/24/20 Assessment Summary Assessment Pt presents with cystocele and rectocele with weakness of lateral ramirez (R>L) and anterior and posterior PF. She has weakness with Quick Flicks and Long Holds). Per vaginal palpation she is able to hold a PF contraction with the posterior and L lateral wall for 7 seconds and with 3 quick flicks. She uses substitute muscle to help her elicit her PF contraction. She has soft tissue dysfunction of her hips with assymetry of her hip mobility and core weakness. The pt will benefit from skilled physical therapy for PF/core strengthening, ROM/ strengthening ex's of the hips , pt education in proper PF care and Kegels, and education in PF anatomy and delay technique to prevent urinary leakage with a strong urge. Physical Therapy Plan Frequency and Duration Plan of Care Start Date 06/25/20 Plan of Care End Date 09/24/20 Therapeutic Interventions Therapeutic Interventions Home Exercise Program,Manual Therapy,Neuromuscular Re- education,Patient/Caregiver Education,Self-Care/Home Management,Soft Tissue Mobilization,Therapeutic Activities,Therapeutic Exercises Next Visit Focus/Plan Next Note Type Treatment Note Next Visit Plan Review bladder dairy and make appropriate recommendations. Teach Kegels for proper sequencing and in isolation of substitute muscles. Initiate HEP to regain symmetry of hip mobility, improve core strength. Pt education in PF anatomy and proper PF care Education in delay technique to prevent urinary leakage with a strong urge.
--- NOTE | 2020-06-25 19:05 | PT.OPPOC ---
Physical, Occupational & Speech Therapy At [facility] Current Diagnoses Trochanteric bursitis, right hip (06/25/20) Trochanteric bursitis, left hip (06/25/20) Uterovaginal prolapse, unspecified (06/25/20) Abnormal uterine and vaginal bleeding, unspecified (06/25/20) Visit Care Team Role Provider Type EMI Jose Family Provider Advanced Clinical Business Manager Primary Care Provider Specialty: Family Practice Address: [address] [place] [address], [id number] Email: [email or web address] Milena Palacios MD Attending Provider Physician Referring Provider Specialty: ENFORCEMENT SAFETY OFFICER Address: [address] [place] [address], [id number] Email: Plan Of Care PT-OP-T Assessment and Plan Start: 06/23/20 18:11 Freq: Status: Active Protocol: Document 06/25/20 13:31 LRN (Rec: 06/25/20 14:22 LRN [id number]) Physical Therapy Assessment Rehab Potential Rehabilitation Potential Excellent Evaluation Complexity Number of Personal Factors/Comorbidities 0 Impairments Impairments Activity Tolerance Goals Five Impairment Decreased PF strength (L 2/5, R 0/5, anter 0/5, big data analytics lead 3/5) Short Term Goal (STG) Improve PF strength of right side equal to left and anterior PF strength. STG Duration 08/07/20 Intermediate Goal (LTG) Improve PF strength per Long Hold to 10 sec's and Quick Flicks 10 reps prior to fatigue to improve her level of continence in the presence of a strong urge. LTG Duration 10/23/20 Four Impairment Decr hip mobility symmetry (ER 40 R, 60 L; IR 45 R, 35 L; AB 30 R, 40 L) Short Term Goal (STG) Improve symmetry of hip mobility STG Duration 08/07/20 Invasive Cardiologist Goal (LTG) Improve symmetry of PF strength with improved hip symmetry of motion. LTG Duration 09/24/20 Three Impairment Urinary urge with trigger of water flow. Short Term Goal (STG) Pt will be able to minimize urge onset of water flow trigger using delay urinary technique. STG Duration 07/30/20 Two Impairment Urinary leakage in the presence of a strong urge. Short Term Goal (STG) Pt will be educated in urinary delay technique. STG Duration 07/10/20 Invasive Cardiologist Goal (LTG) Pt will be able to maintain urinary continence in the presence of a strong urge. LTG Duration 09/24/20 One Impairment Pt lacks an independent self care HEP Short Term Goal (STG) Pt will be educated in performing a Kegel in isolation of substitute muscles and proper deep breathing with reflexive activation of her transverse abdominals. STG Duration 07/30/20 Invasive Cardiologist Goal (LTG) Pt will be independent in a self care HEP for PF strengthening. LTG Duration 09/24/20 Assessment Summary Assessment Pt presents with cystocele and rectocele with weakness of lateral ramirez (R>L) and anterior and posterior PF. She has weakness with Quick Flicks and Long Holds). Per vaginal palpation she is able to hold a PF contraction with the posterior and L lateral wall for 7 seconds and with 3 quick flicks. She uses substitute muscle to help her elicit her PF contraction. She has soft tissue dysfunction of her hips with assymetry of her hip mobility and core weakness. The pt will benefit from skilled physical therapy for PF/core strengthening, ROM/ strengthening ex's of the hips , pt education in proper PF care and Kegels, and education in PF anatomy and delay technique to prevent urinary leakage with a strong urge. Physical Therapy Plan Frequency and Duration Plan of Care Start Date 06/25/20 Plan of Care End Date 09/24/20 Therapeutic Interventions Therapeutic Interventions Home Exercise Program,Manual Therapy,Neuromuscular Re- education,Patient/Caregiver Education,Self-Care/Home Management,Soft Tissue Mobilization,Therapeutic Activities,Therapeutic Exercises Next Visit Focus/Plan Next Note Type Treatment Note Next Visit Plan Review bladder dairy and make appropriate recommendations. Teach Kegels for proper sequencing and in isolation of substitute muscles. Initiate HEP to regain symmetry of hip mobility, improve core strength. Pt education in PF anatomy and proper PF care Education in delay technique to prevent urinary leakage with a strong urge. Plan of Care Dates Plan of Care Start Date 06/25/20 Plan of Care End Date 09/24/20 Electronically Signed by: Ashanti Pace, PT 06/26/20 [id number] Please Sign and Return: I have reviewed this Plan of Care and certify that the skilled therapy services above are required to meet the patient?s needs. Physician Signature Date Printed Name and Credentials Clinical Instructor Signature Printed Name and Credentials
--- NOTE | 2020-07-03 08:21 | PT.OPPOC ---
Physical, Occupational & Speech Therapy At [facility] Current Diagnoses Trochanteric bursitis, right hip (07/03/20) Trochanteric bursitis, left hip (07/03/20) Uterovaginal prolapse, unspecified (07/03/20) Abnormal uterine and vaginal bleeding, unspecified (07/03/20) Visit Care Team Role Provider Type EMI Jose Family Provider Advanced Topographical Field Assistant Primary Care Provider Specialty: Family Practice Address: [address] [place] [address], [id number] Email: [email or web address] Milena Palacios MD Attending Provider Physician Referring Provider Specialty: OCCUPATIONAL THERAPY AIDE Address: [address] [place] [address], [address] Email: Plan Of Care PT-OP-T Assessment and Plan Start: 06/23/20 18:11 Freq: Status: Active Protocol: Document 06/25/20 13:31 LRN (Rec: 06/25/20 14:22 LRN [id number]) Physical Therapy Assessment Rehab Potential Rehabilitation Potential Excellent Evaluation Complexity Number of Personal Factors/Comorbidities 0 Impairments Impairments Activity Tolerance Goals Five Impairment Decreased PF strength (L 2/5, R 0/5, anter 0/5, waiter/waitress first class 3/5) Short Term Goal (STG) Improve PF strength of right side equal to left and anterior PF strength. STG Duration 08/07/20 Shelter Goal (LTG) Improve PF strength per Long Hold to 10 sec's and Quick Flicks 10 reps prior to fatigue to improve her level of continence in the presence of a strong urge. LTG Duration 10/23/20 Four Impairment Decr hip mobility symmetry (ER 40 R, 60 L; IR 45 R, 35 L; AB 30 R, 40 L) Short Term Goal (STG) Improve symmetry of hip mobility STG Duration 08/07/20 Weather Reporter Goal (LTG) Improve symmetry of PF strength with improved hip symmetry of motion. LTG Duration 09/24/20 Three Impairment Urinary urge with trigger of water flow. Short Term Goal (STG) Pt will be able to minimize urge onset of water flow trigger using delay urinary technique. STG Duration 07/30/20 Two Impairment Urinary leakage in the presence of a strong urge. Short Term Goal (STG) Pt will be educated in urinary delay technique. STG Duration 07/10/20 Weather Reporter Goal (LTG) Pt will be able to maintain urinary continence in the presence of a strong urge. LTG Duration 09/24/20 One Impairment Pt lacks an independent self care HEP Short Term Goal (STG) Pt will be educated in performing a Kegel in isolation of substitute muscles and proper deep breathing with reflexive activation of her transverse abdominals. STG Duration 07/30/20 Weather Reporter Goal (LTG) Pt will be independent in a self care HEP for PF strengthening. LTG Duration 09/24/20 Assessment Summary Assessment Pt presents with cystocele and rectocele with weakness of lateral ramirez (R>L) and anterior and posterior PF. She has weakness with Quick Flicks and Long Holds). Per vaginal palpation she is able to hold a PF contraction with the posterior and L lateral wall for 7 seconds and with 3 quick flicks. She uses substitute muscle to help her elicit her PF contraction. She has soft tissue dysfunction of her hips with assymetry of her hip mobility and core weakness. The pt will benefit from skilled physical therapy for PF/core strengthening, ROM/ strengthening ex's of the hips , pt education in proper PF care and Kegels, and education in PF anatomy and delay technique to prevent urinary leakage with a strong urge. Physical Therapy Plan Frequency and Duration Frequency of Treatment 1x/Week Plan of Care Start Date 06/25/20 Plan of Care End Date 09/24/20 Therapeutic Interventions Therapeutic Interventions Home Exercise Program,Manual Therapy,Neuromuscular Re- education,Patient/Caregiver Education,Self-Care/Home Management,Soft Tissue Mobilization,Therapeutic Activities,Therapeutic Exercises Next Visit Focus/Plan Next Note Type Treatment Note Next Visit Plan Review bladder dairy and make appropriate recommendations. Teach Kegels for proper sequencing and in isolation of substitute muscles. Initiate HEP to regain symmetry of hip mobility, improve core strength. Pt education in PF anatomy and proper PF care Education in delay technique to prevent urinary leakage with a strong urge. Plan of Care Dates Plan of Care Start Date 06/25/20 Plan of Care End Date 09/24/20 Electronically Signed by: Ashanti Pace, PT 07/03/20 [id number] Please Sign and Return: I have reviewed this Plan of Care and certify that the skilled therapy services above are required to meet the patient?s needs. Physician Signature Date Printed Name and Credentials Clinical Instructor Signature Printed Name and Credentials
--- NOTE | 2020-07-03 16:41 | PT.OTN ---
Current Diagnoses Trochanteric bursitis, right hip (07/03/20) Trochanteric bursitis, left hip (07/03/20) Uterovaginal prolapse, unspecified (07/03/20) Abnormal uterine and vaginal bleeding, unspecified (07/03/20) Physical Therapy Treatment Note PT-OP-A Visit Information Start: 06/23/20 18:11 Freq: Status: Active Protocol: Document 07/03/20 08:16 LRN (Rec: 07/03/20 09:03 LRN [id number]) Out-Patient Physical Therapy Visit Information Visit Information Visit Type Treatment Note Visit Start Time 08:16 Visit Stop Time 08:57 Total Visit Minutes 41 Visit Number 2 Evaluation Information Evaluation Date 06/25/20 Precautions Precautions Low back pain, was severe prior to steroid injection. Neck and R shoulder pain resolved with injection. PT-OP-B Current Condition Start: 06/23/20 18:11 Freq: Status: Active Protocol: Document 06/25/20 13:31 LRN (Rec: 06/25/20 14:22 LRN [id number]) Current Condition History of Current Condition Onset Date Over a year ago. Current Complaints Urinary leakage walking to the bathroom if urge. History of Current Condition Physical therapy for fallen bladder. Had a shot in the R hip in January [address] Martinez with resolution of hip pain. Vaginal bleeding when pessary placed, two times, finally removed several months ago and bleeding stopped. Prior Treatments and Tests Pessary placed x 2, removed due to vaginal bleeding. Future Testing and Treatments Planned Next appt with Dr Palacios is next month. Developmental History Developmental History 2 children and one miscarriage , vaginal deliveries without complications. Denies urinary leakage after having children . Treatment Goals Patient/Caregiver Goals Leakage when in a car or meeting. Maintain continence in the presence of a strong urge. Independent on a HEP Prior Functional Status Baseline Function- ADL's Independent Baseline Function- Mobility Independent Current Functional Impairments (Reported) Functional Limitations- ADL's Urinary leakage (few drops) only with an urge. Personal Factors Other Personal Factors That May Effect History of back and R hip pain Therapy/Recovery , history of bleeding vaginally form pessary. PT-OP-C Subjective Start: 06/23/20 18:11 Freq: Status: Active Protocol: Document 07/03/20 08:16 LRN (Rec: 07/03/20 16:33 LRN [id number]) OP-PT Subjective Patient Comments Patient Comments Pt did bladder diary. No change. PT-OP-I Pelvic Floor Start: 06/23/20 18:11 Freq: Status: Active Protocol: Document 06/25/20 13:31 LRN (Rec: 06/26/20 18:35 LRN [id number]) Pelvic Floor Assessment Urine Pelvic Floor Surgery No Urinary Symptoms Prolapse Other Urinary Symptoms Urinary leakage walking in presence of a strong urge. Leakage Size Small Voiding Frequency 7-10 times a day Nocturia 2-3x Prolapse Cystocele Grade 2 Rectocele Grade 2 Prolapse Comments Pt bladder and rectum on bearing down is observed to bulge at least 1 cm above the vaginal opening. Perineal Descent Resting Present Bearing Present Contraction Ability Voluntary Contraction Weak Manual Muscle Testing Left 2 Manual Muscle Testing Right 0 Manual Muscle Testing Anterior 0 Manual Muscle Testing Posterior 3 Muscle Endurance (Seconds) 7 Number of Quick Contractions In 10 3 Seconds PT-OP-J Posture/Palpation/Skin Start: 06/23/20 18:11 Freq: Status: Active Protocol: Document 06/25/20 13:31 LRN (Rec: 06/26/20 18:35 LRN [id number]) Posture Evaluation Position Standing L-Spine Posture Shifted Left Pelvis Posture (L) Iliac Crest Superior Hip Posture (L) Flexed,(R) Flexed Comments Posture Comments Slight C-Curve of spine with apex on the right. PT-OP-K Range of Motion Start: 06/23/20 18:11 Freq: Status: Active Protocol: Document 06/25/20 13:31 LRN (Rec: 06/26/20 18:35 LRN [id number]) Lumbar Spine Range of Motion Lumbar Spine Active Degrees Testing Position Standing Flexion 83 Extension 40 Lateral Flexion Left 13 Lateral Flexion Right 10 Comments Trunk flexion is with 60 degs hip flexion. Trunk extension is with 20 degs hip extension. Hip Goniometric Range of Motion Hip Right Passive Testing Position Supine Straight Leg Raise 90 Abduction 30 Internal Rotation 45 External Rotation 40 Left Passive Testing Position Supine Straight Leg Raise 90 Abduction 40 Internal Rotation 35 External Rotation 60 PT-OP-M Strength Start: 06/23/20 18:11 Freq: Status: Active Protocol: Document 06/25/20 13:31 LRN (Rec: 06/26/20 18:35 LRN [id number]) Trunk Strength Trunk Manual Muscle Testing Core Stabilization Pt not able to maintain core stability with testing of hip muscle strength. Hip Strength Hip Manual Muscle Testing Right Abduction 4- Good- Internal Rotation 3+ Fair+ Comments Strength is 5/5 except as indicated above. Left External Rotation 4+ Good+ Internal Rotation 3+ Fair+ Comments Strength is 5/5 except as indicated above. PT-OP-Q Treatments Start: 06/23/20 18:11 Freq: Status: Active Protocol: Document 07/03/20 08:16 LRN (Rec: 07/03/20 09:03 LRN [id number]) Therapeutic Exercises Supine Exercises Kegel awareness training Supine Exercise Name Kegel awareness training w/hip ER & IR facilitation Side bilateral Reps/Minutes 10' Comments Pt not able to find awareness of a Kegel ex Deep Breathing Supine Exercise Name Deep Breathing Training Reps/Minutes 10' Comments Pt needed much training to be able to properly (shallowly) deep breathe. Self-Care/Home Management Treatment Education Patient Education Home Exercise Program Other Education 21' Discussed bladder diary, issued & reviewed bladder irritant handout. Made recommendations to type of fluid intake, educated on PF anatomy and weakness of muscles how they can effect urination times. Activities Self-Care/Home Management Activities Issue & reviewed HEP: diaphragmatic breathing. PT-OP-T Assessment and Plan Start: 06/23/20 18:11 Freq: Status: Active Protocol: Document 07/03/20 08:16 LRN (Rec: 07/03/20 09:03 [facility] [id number]) Physical Therapy Assessment Goals Five Impairment Decreased PF strength (L 2/5, R 0/5, anter 0/5, hand cooper helper 3/5) Short Term Goal (STG) Improve PF strength of right side equal to left and anterior PF strength. STG Duration 08/07/20 Protective Clothing Issuer Goal (LTG) Improve PF strength per Long Hold to 10 sec's and Quick Flicks 10 reps prior to fatigue to improve her level of continence in the presence of a strong urge. LTG Duration 10/23/20 Four Impairment Decr hip mobility symmetry (ER 40 R, 60 L; IR 45 R, 35 L; AB 30 R, 40 L) Short Term Goal (STG) Improve symmetry of hip mobility STG Duration 08/07/20 Residential Goal (LTG) Improve symmetry of PF strength with improved hip symmetry of motion. LTG Duration 09/24/20 Three Impairment Urinary urge with trigger of water flow. Short Term Goal (STG) Pt will be able to minimize urge onset of water flow trigger using delay urinary technique. STG Duration 07/30/20 Two Impairment Urinary leakage in the presence of a strong urge. Short Term Goal (STG) Pt will be educated in urinary delay technique. STG Duration 07/10/20 Residential Goal (LTG) Pt will be able to maintain urinary continence in the presence of a strong urge. LTG Duration 09/24/20 One Impairment Pt lacks an independent self care HEP Short Term Goal (STG) Pt will be educated in performing a Kegel in isolation of substitute muscles and proper deep breathing with reflexive activation of her transverse abdominals. STG Duration 07/30/20 Residential Goal (LTG) Pt will be independent in a self care HEP for PF strengthening. LTG Duration 09/24/20 Assessment Summary Assessment Pt has very long urination times (15-35 secs) with urgency of 1/3. She appears to have very poor awareness of her PF and therefore is not able to coordinate a PF contraction. Further awareness training is needed by digital stim or vaginal electrode. Pt does have sexual intercourse with her spouse and would probably; therefore tolerate use of a vaginal electrode for biofeedback training. Pt to decide by next visit. Physical Therapy Plan Frequency and Duration Frequency of Treatment 1x/Week Plan of Care Start Date 06/25/20 Plan of Care End Date 09/24/20 Next Visit Focus/Plan Next Note Type Treatment Note Next Visit Plan Possible use of biofeedback for improving PF contraction awareness. Teach Kegels for proper sequencing and in isolation of substitute muscles when awareness improved. Initiate HEP to regain symmetry of hip mobility, improve core strength. Pt education in proper PF care . Education in delay technique to prevent urinary leakage with a strong urge.
--- NOTE | 2020-07-09 12:14 | PT.OTN ---
Current Diagnoses Trochanteric bursitis, right hip (07/09/20) Trochanteric bursitis, left hip (07/09/20) Uterovaginal prolapse, unspecified (07/09/20) Abnormal uterine and vaginal bleeding, unspecified (07/09/20) Physical Therapy Treatment Note PT-OP-A Visit Information Start: 06/23/20 18:11 Freq: Status: Active Protocol: Document 07/09/20 10:32 LRN (Rec: 07/09/20 11:16 LRN [id number]) Out-Patient Physical Therapy Visit Information Visit Information Visit Type Treatment Note Visit Start Time 10:32 Visit Stop Time 11:15 Total Visit Minutes 43 Visit Number 3 Evaluation Information Evaluation Date 06/25/20 Precautions Precautions Low back pain, was severe prior to steroid injection. Neck and R shoulder pain resolved with injection. PT-OP-B Current Condition Start: 06/23/20 18:11 Freq: Status: Active Protocol: Document 06/25/20 13:31 LRN (Rec: 06/25/20 14:22 LRN [id number]) Current Condition History of Current Condition Onset Date Over a year ago. Current Complaints Urinary leakage walking to the bathroom if urge. History of Current Condition Physical therapy for fallen bladder. Had a shot in the R hip in January [address] Martinez with resolution of hip pain. Vaginal bleeding when pessary placed, two times, finally removed several months ago and bleeding stopped. Prior Treatments and Tests Pessary placed x 2, removed due to vaginal bleeding. Future Testing and Treatments Planned Next appt with Dr Palacios is next month. Developmental History Developmental History 2 children and one miscarriage , vaginal deliveries without complications. Denies urinary leakage after having children . Treatment Goals Patient/Caregiver Goals Leakage when in a car or meeting. Maintain continence in the presence of a strong urge. Independent on a HEP Prior Functional Status Baseline Function- ADL's Independent Baseline Function- Mobility Independent Current Functional Impairments (Reported) Functional Limitations- ADL's Urinary leakage (few drops) only with an urge. Personal Factors Other Personal Factors That May Effect History of back and R hip pain Therapy/Recovery , history of bleeding vaginally form pessary. PT-OP-C Subjective Start: 06/23/20 18:11 Freq: Status: Active Protocol: Document 07/09/20 10:32 LRN (Rec: 07/09/20 11:16 LRN [id number]) OP-PT Subjective Patient Comments Patient Comments Pt did bladder diary. States she takes a water pill every day in early AM ~7 or 8 am. PT-OP-I Pelvic Floor Start: 06/23/20 18:11 Freq: Status: Active Protocol: Document 06/25/20 13:31 LRN (Rec: 06/26/20 18:35 LRN [id number]) Pelvic Floor Assessment Urine Pelvic Floor Surgery No Urinary Symptoms Prolapse Other Urinary Symptoms Urinary leakage walking in presence of a strong urge. Leakage Size Small Voiding Frequency 7-10 times a day Nocturia 2-3x Prolapse Cystocele Grade 2 Rectocele Grade 2 Prolapse Comments Pt bladder and rectum on bearing down is observed to bulge at least 1 cm above the vaginal opening. Perineal Descent Resting Present Bearing Present Contraction Ability Voluntary Contraction Weak Manual Muscle Testing Left 2 Manual Muscle Testing Right 0 Manual Muscle Testing Anterior 0 Manual Muscle Testing Posterior 3 Muscle Endurance (Seconds) 7 Number of Quick Contractions In 10 3 Seconds PT-OP-J Posture/Palpation/Skin Start: 06/23/20 18:11 Freq: Status: Active Protocol: Document 06/25/20 13:31 LRN (Rec: 06/26/20 18:35 LRN [id number]) Posture Evaluation Position Standing L-Spine Posture Shifted Left Pelvis Posture (L) Iliac Crest Superior Hip Posture (L) Flexed,(R) Flexed Comments Posture Comments Slight C-Curve of spine with apex on the right. PT-OP-K Range of Motion Start: 06/23/20 18:11 Freq: Status: Active Protocol: Document 06/25/20 13:31 LRN (Rec: 06/26/20 18:35 LRN [id number]) Lumbar Spine Range of Motion Lumbar Spine Active Degrees Testing Position Standing Flexion 83 Extension 40 Lateral Flexion Left 13 Lateral Flexion Right 10 Comments Trunk flexion is with 60 degs hip flexion. Trunk extension is with 20 degs hip extension. Hip Goniometric Range of Motion Hip Right Passive Testing Position Supine Straight Leg Raise 90 Abduction 30 Internal Rotation 45 External Rotation 40 Left Passive Testing Position Supine Straight Leg Raise 90 Abduction 40 Internal Rotation 35 External Rotation 60 PT-OP-M Strength Start: 06/23/20 18:11 Freq: Status: Active Protocol: Document 06/25/20 13:31 LRN (Rec: 06/26/20 18:35 LRN [id number]) Trunk Strength Trunk Manual Muscle Testing Core Stabilization Pt not able to maintain core stability with testing of hip muscle strength. Hip Strength Hip Manual Muscle Testing Right Abduction 4- Good- Internal Rotation 3+ Fair+ Comments Strength is 5/5 except as indicated above. Left External Rotation 4+ Good+ Internal Rotation 3+ Fair+ Comments Strength is 5/5 except as indicated above. PT-OP-Q Treatments Start: 06/23/20 18:11 Freq: Status: Active Protocol: Document 07/09/20 10:32 LRN (Rec: 07/09/20 11:16 LRN [id number]) Therapeutic Exercises Supine Exercises Kegel Supine Exercise Name 30% contraction with inhale Comments Pt has poor feeling of electrode in vaginal canal. Kegel awareness training Supine Exercise Name Kegel awareness training w/hip ER & IR facilitation Side bilateral Reps/Minutes 10' Comments Pt not able to find awareness of a Kegel ex Deep Breathing Supine Exercise Name Deep Breathing coordination with Kegel Comments Vaginal electrode pulled in on exhale and pushed out on inhale. Neuro Re-Education Treatment Other Activities PF awareness training Details PF E-Stim for PF awareness training Reps/Duration 6' Self-Care/Home Management Treatment Education Other Education 13' Reviewed & discussed bladder diary. Discussed urination times and for pt to monitor actual pee time and count separately dribble time. PT-OP-T Assessment and Plan Start: 06/23/20 18:11 Freq: Status: Active Protocol: Document 07/09/20 10:32 LRN (Rec: 07/09/20 11:16 LRN [id number]) Physical Therapy Assessment Goals Five Impairment Decreased PF strength (L 2/5, R 0/5, anter 0/5, process excellence manager 3/5) Short Term Goal (STG) Improve PF strength of right side equal to left and anterior PF strength. STG Duration 08/07/20 Time Study Clerk Goal (LTG) Improve PF strength per Long Hold to 10 sec's and Quick Flicks 10 reps prior to fatigue to improve her level of continence in the presence of a strong urge. LTG Duration 10/23/20 Four Impairment Decr hip mobility symmetry (ER 40 R, 60 L; IR 45 R, 35 L; AB 30 R, 40 L) Short Term Goal (STG) Improve symmetry of hip mobility STG Duration 08/07/20 Nursing Home Goal (LTG) Improve symmetry of PF strength with improved hip symmetry of motion. LTG Duration 09/24/20 Three Impairment Urinary urge with trigger of water flow. Short Term Goal (STG) Pt will be able to minimize urge onset of water flow trigger using delay urinary technique. STG Duration 07/30/20 Two Impairment Urinary leakage in the presence of a strong urge. Short Term Goal (STG) Pt will be educated in urinary delay technique. STG Duration 07/10/20 Nursing Home Goal (LTG) Pt will be able to maintain urinary continence in the presence of a strong urge. LTG Duration 09/24/20 One Impairment Pt lacks an independent self care HEP Short Term Goal (STG) Pt will be educated in performing a Kegel in isolation of substitute muscles and proper deep breathing with reflexive activation of her transverse abdominals. STG Duration 07/30/20 Nursing Home Goal (LTG) Pt will be independent in a self care HEP for PF strengthening. LTG Duration 09/24/20 Assessment Summary Assessment No urinary leakage per bladder diary. Pt not sure why she is in therapy. Her concern is her baldder prolapse. Drinking only water, no tea, pt shows long urination times 15-30 secs, and increased frequency of urination mainly in PM after taking her water pill (7-8 am). Physical Therapy Plan Frequency and Duration Frequency of Treatment 1x/Week Plan of Care Start Date 06/25/20 Plan of Care End Date 09/24/20 Next Visit Focus/Plan Next Note Type Treatment Note Next Visit Plan Unable to use biofeedback today due to connectivity issues; therefore next treatment: will use biofeedback for strengthening and biofeedback training for PF contraction awareness. Teach Kegels for proper sequencing and in isolation of substitute muscles when awareness improved. Initiate HEP to regain symmetry of hip mobility, and start LE roll in/outs, improve core strength. Pt education in proper PF care . Education in delay technique to prevent urinary leakage with a strong urge.
--- NOTE | 2020-07-23 16:37 | PT.OTN ---
Current Diagnoses Trochanteric bursitis, right hip (07/23/20) Trochanteric bursitis, left hip (07/23/20) Uterovaginal prolapse, unspecified (07/23/20) Abnormal uterine and vaginal bleeding, unspecified (07/23/20) Physical Therapy Treatment Note PT-OP-A Visit Information Start: 06/23/20 18:11 Freq: Status: Active Protocol: Document 07/23/20 09:49 LRN (Rec: 07/23/20 10:34 LRN [id number]) Out-Patient Physical Therapy Visit Information Visit Information Visit Type Treatment Note Visit Note Extra time taken to find space for treatment Visit Start Time 09:49 Visit Stop Time 10:31 Total Visit Minutes 42 Visit Number 4 Evaluation Information Evaluation Date 06/25/20 Precautions Precautions Low back pain, was severe prior to steroid injection. Neck and R shoulder pain resolved with injection. PT-OP-B Current Condition Start: 06/23/20 18:11 Freq: Status: Active Protocol: Document 06/25/20 13:31 LRN (Rec: 06/25/20 14:22 LRN [id number]) Current Condition History of Current Condition Onset Date Over a year ago. Current Complaints Urinary leakage walking to the bathroom if urge. History of Current Condition Physical therapy for fallen bladder. Had a shot in the R hip in January [address] Martinez with resolution of hip pain. Vaginal bleeding when pessary placed, two times, finally removed several months ago and bleeding stopped. Prior Treatments and Tests Pessary placed x 2, removed due to vaginal bleeding. Future Testing and Treatments Planned Next appt with Dr Palacios is next month. Developmental History Developmental History 2 children and one miscarriage , vaginal deliveries without complications. Denies urinary leakage after having children . Treatment Goals Patient/Caregiver Goals Leakage when in a car or meeting. Maintain continence in the presence of a strong urge. Independent on a HEP Prior Functional Status Baseline Function- ADL's Independent Baseline Function- Mobility Independent Current Functional Impairments (Reported) Functional Limitations- ADL's Urinary leakage (few drops) only with an urge. Personal Factors Other Personal Factors That May Effect History of back and R hip pain Therapy/Recovery , history of bleeding vaginally form pessary. PT-OP-C Subjective Start: 06/23/20 18:11 Freq: Status: Active Protocol: Document 07/23/20 09:49 LRN (Rec: 07/23/20 10:34 LRN [id number]) OP-PT Subjective Patient Comments Patient Comments No urinary leakage, has had 1- 2 strong urges. Pt choosing to do PF ex's vs electrode EMG biofeedback today. PT-OP-I Pelvic Floor Start: 06/23/20 18:11 Freq: Status: Active Protocol: Document 06/25/20 13:31 LRN (Rec: 06/26/20 18:35 LRN [id number]) Pelvic Floor Assessment Urine Pelvic Floor Surgery No Urinary Symptoms Prolapse Other Urinary Symptoms Urinary leakage walking in presence of a strong urge. Leakage Size Small Voiding Frequency 7-10 times a day Nocturia 2-3x Prolapse Cystocele Grade 2 Rectocele Grade 2 Prolapse Comments Pt bladder and rectum on bearing down is observed to bulge at least 1 cm above the vaginal opening. Perineal Descent Resting Present Bearing Present Contraction Ability Voluntary Contraction Weak Manual Muscle Testing Left 2 Manual Muscle Testing Right 0 Manual Muscle Testing Anterior 0 Manual Muscle Testing Posterior 3 Muscle Endurance (Seconds) 7 Number of Quick Contractions In 10 3 Seconds PT-OP-J Posture/Palpation/Skin Start: 06/23/20 18:11 Freq: Status: Active Protocol: Document 06/25/20 13:31 LRN (Rec: 06/26/20 18:35 LRN [id number]) Posture Evaluation Position Standing L-Spine Posture Shifted Left Pelvis Posture (L) Iliac Crest Superior Hip Posture (L) Flexed,(R) Flexed Comments Posture Comments Slight C-Curve of spine with apex on the right. PT-OP-K Range of Motion Start: 06/23/20 18:11 Freq: Status: Active Protocol: Document 06/25/20 13:31 LRN (Rec: 06/26/20 18:35 LRN [id number]) Lumbar Spine Range of Motion Lumbar Spine Active Degrees Testing Position Standing Flexion 83 Extension 40 Lateral Flexion Left 13 Lateral Flexion Right 10 Comments Trunk flexion is with 60 degs hip flexion. Trunk extension is with 20 degs hip extension. Hip Goniometric Range of Motion Hip Right Passive Testing Position Supine Straight Leg Raise 90 Abduction 30 Internal Rotation 45 External Rotation 40 Left Passive Testing Position Supine Straight Leg Raise 90 Abduction 40 Internal Rotation 35 External Rotation 60 PT-OP-M Strength Start: 06/23/20 18:11 Freq: Status: Active Protocol: Document 06/25/20 13:31 LRN (Rec: 06/26/20 18:35 LRN [id number]) Trunk Strength Trunk Manual Muscle Testing Core Stabilization Pt not able to maintain core stability with testing of hip muscle strength. Hip Strength Hip Manual Muscle Testing Right Abduction 4- Good- Internal Rotation 3+ Fair+ Comments Strength is 5/5 except as indicated above. Left External Rotation 4+ Good+ Internal Rotation 3+ Fair+ Comments Strength is 5/5 except as indicated above. PT-OP-Q Treatments Start: 06/23/20 18:11 Freq: Status: Active Protocol: Document 07/23/20 09:49 LRN (Rec: 07/23/20 10:34 LRN [id number]) Therapeutic Exercises Supine Exercises PF w/LE roll in/out & deep breathing Supine Exercise Name PF w/LE roll in/out & deep breathing Reps/Minutes 8' LE Roll in/out Supine Exercise Name LE roll iin/out and with deep breathing Reps/Minutes 7' Comments Training to perform coordinated breathing with movement Hip ER stretch Supine Exercise Name R>L Fig 4 stretch Side bilateral Reps/Minutes 1' each, 2x R Comments Extra time for proper positioning and finding ex range tolerance Piriformis stretch Supine Exercise Name L>R Piriformis stretch Side bilateral Reps/Minutes 1' each, 2x L Comments Extra time for proper positioning and finding ex range tolerance Lat hip stretch Supine Exercise Name L>R Lateral Hip stretch Side bilateral Reps/Minutes 1' each, 2x L Comments Extra time for proper positioning and finding ex range tolerance Deep Breathing Supine Exercise Name Deep Breathing coordination with Kegel Self-Care/Home Management Treatment Education Patient Education Home Exercise Program Other Education Pt educated in urinary delay technique to use for strong urges. Activities Self-Care/Home Management Activities Issued & reviewed HEP: Hip fig 4, lateral hip and Piriformis stretch; LE roll in /out ex. PT-OP-T Assessment and Plan Start: 06/23/20 18:11 Freq: Status: Active Protocol: Document 07/23/20 09:49 LRN (Rec: 07/23/20 10:34 LRN [id number]) Physical Therapy Assessment Goals Five Impairment Decreased PF strength (L 2/5, R 0/5, anter 0/5, cellophane wrapping examiner 3/5) Short Term Goal (STG) Improve PF strength of right side equal to left and anterior PF strength. STG Duration 11/20/20 Agronomy Instructor Goal (LTG) Improve PF strength per Long Hold to 10 sec's and Quick Flicks 10 reps prior to fatigue to improve her level of continence in the presence of a strong urge. LTG Duration 10/23/20 Four Impairment Decr hip mobility symmetry (ER 40 R, 60 L; IR 45 R, 35 L; AB 30 R, 40 L) Short Term Goal (STG) Improve symmetry of hip mobility. (07/23/20: HEP issued) STG Duration 08/07/20 (07/23/20: Progressing) Agronomy Instructor Goal (LTG) Improve symmetry of PF strength with improved hip symmetry of motion. LTG Duration 09/24/20 Three Impairment Urinary urge with trigger of water flow. Short Term Goal (STG) Pt will be able to minimize urge onset of water flow trigger using delay urinary technique. STG Duration 07/30/20 Two Impairment Urinary leakage in the presence of a strong urge. Short Term Goal (STG) Pt will be educated in urinary delay technique. STG Duration 07/10/20 (07/23/20: MET GOAL) Agronomy Instructor Goal (LTG) Pt will be able to maintain urinary continence in the presence of a strong urge. LTG Duration 09/24/20 One Impairment Pt lacks an independent self care HEP Short Term Goal (STG) Pt will be educated in performing a Kegel in isolation of substitute muscles and proper deep breathing with reflexive activation of her transverse abdominals. STG Duration 07/30/20 Agronomy Instructor Goal (LTG) Pt will be independent in a self care HEP for PF strengthening. LTG Duration 09/24/20 (07/23/20: Progressing) Progress Towards Goals Progress Towards Goals Progressing Toward Goals Progress Comments HEP issued, educated pt in delay urinary technique. Assessment Summary Assessment Pt appears to have a good understanding of hip stretches after ex and review of HEP. Pt primary concern remains with prolapse, no urinary leakage, not even with strong urge. She is receptive to therapy. Physical Therapy Plan Frequency and Duration Frequency of Treatment 1x/Week Plan of Care Start Date 06/25/20 Plan of Care End Date 09/24/20 Next Visit Focus/Plan Next Note Type Treatment Note Next Visit Plan Did not use biofeedback today due unavailable private space; therefore next treatment: will use biofeedback for strengthening and biofeedback training for PF contraction awareness. Review hip stretches and LE roll in/out ex. Assess response to use of delay technique for strong urges and trigger (water running) & issue handout. Teach Kegels for proper sequencing and in isolation of substitute muscles when awareness improved. Progress LE roll in/outs, improve core strength. Pt education in proper PF care .
--- NOTE | 2020-08-03 16:33 | PT.OTN ---
Current Diagnoses Trochanteric bursitis, right hip (08/03/20) Trochanteric bursitis, left hip (08/03/20) Uterovaginal prolapse, unspecified (08/03/20) Abnormal uterine and vaginal bleeding, unspecified (08/03/20) Physical Therapy Treatment Note PT-OP-A Visit Information Start: 06/23/20 18:11 Freq: Status: Active Protocol: Document 08/03/20 15:12 LRN (Rec: 08/03/20 15:54 LRN [id number]) Out-Patient Physical Therapy Visit Information Visit Information Visit Type Treatment Note Visit Start Time 15:12 Visit Stop Time 15:54 Total Visit Minutes 42 Visit Number 5 Evaluation Information Evaluation Date 06/25/20 Precautions Precautions Low back pain, was severe prior to steroid injection. Neck and R shoulder pain resolved with injection. PT-OP-B Current Condition Start: 06/23/20 18:11 Freq: Status: Active Protocol: Document 06/25/20 13:31 LRN (Rec: 06/25/20 14:22 LRN [id number]) Current Condition History of Current Condition Onset Date Over a year ago. Current Complaints Urinary leakage walking to the bathroom if urge. History of Current Condition Physical therapy for fallen bladder. Had a shot in the R hip in January [address] Martinez with resolution of hip pain. Vaginal bleeding when pessary placed, two times, finally removed several months ago and bleeding stopped. Prior Treatments and Tests Pessary placed x 2, removed due to vaginal bleeding. Future Testing and Treatments Planned Next appt with Dr Palacios is next month. Developmental History Developmental History 2 children and one miscarriage , vaginal deliveries without complications. Denies urinary leakage after having children . Treatment Goals Patient/Caregiver Goals Leakage when in a car or meeting. Maintain continence in the presence of a strong urge. Independent on a HEP Prior Functional Status Baseline Function- ADL's Independent Baseline Function- Mobility Independent Current Functional Impairments (Reported) Functional Limitations- ADL's Urinary leakage (few drops) only with an urge. Personal Factors Other Personal Factors That May Effect History of back and R hip pain Therapy/Recovery , history of bleeding vaginally form pessary. PT-OP-C Subjective Start: 06/23/20 18:11 Freq: Status: Active Protocol: Document 08/03/20 15:12 LRN (Rec: 08/03/20 15:54 LRN [id number]) OP-PT Subjective Patient Comments Patient Comments States the exercises really bothered her R knee and hips. Had cortisone injection in January 2020 and the exercises aggrevated it. PT-OP-I Pelvic Floor Start: 06/23/20 18:11 Freq: Status: Active Protocol: Document 06/25/20 13:31 LRN (Rec: 06/26/20 18:35 LRN [id number]) Pelvic Floor Assessment Urine Pelvic Floor Surgery No Urinary Symptoms Prolapse Other Urinary Symptoms Urinary leakage walking in presence of a strong urge. Leakage Size Small Voiding Frequency 7-10 times a day Nocturia 2-3x Prolapse Cystocele Grade 2 Rectocele Grade 2 Prolapse Comments Pt bladder and rectum on bearing down is observed to bulge at least 1 cm above the vaginal opening. Perineal Descent Resting Present Bearing Present Contraction Ability Voluntary Contraction Weak Manual Muscle Testing Left 2 Manual Muscle Testing Right 0 Manual Muscle Testing Anterior 0 Manual Muscle Testing Posterior 3 Muscle Endurance (Seconds) 7 Number of Quick Contractions In 10 3 Seconds PT-OP-J Posture/Palpation/Skin Start: 06/23/20 18:11 Freq: Status: Active Protocol: Document 06/25/20 13:31 LRN (Rec: 06/26/20 18:35 LRN [id number]) Posture Evaluation Position Standing L-Spine Posture Shifted Left Pelvis Posture (L) Iliac Crest Superior Hip Posture (L) Flexed,(R) Flexed Comments Posture Comments Slight C-Curve of spine with apex on the right. PT-OP-K Range of Motion Start: 06/23/20 18:11 Freq: Status: Active Protocol: Document 06/25/20 13:31 LRN (Rec: 06/26/20 18:35 LRN [id number]) Lumbar Spine Range of Motion Lumbar Spine Active Degrees Testing Position Standing Flexion 83 Extension 40 Lateral Flexion Left 13 Lateral Flexion Right 10 Comments Trunk flexion is with 60 degs hip flexion. Trunk extension is with 20 degs hip extension. Hip Goniometric Range of Motion Hip Right Passive Testing Position Supine Straight Leg Raise 90 Abduction 30 Internal Rotation 45 External Rotation 40 Left Passive Testing Position Supine Straight Leg Raise 90 Abduction 40 Internal Rotation 35 External Rotation 60 PT-OP-M Strength Start: 06/23/20 18:11 Freq: Status: Active Protocol: Document 06/25/20 13:31 LRN (Rec: 06/26/20 18:35 LRN [id number]) Trunk Strength Trunk Manual Muscle Testing Core Stabilization Pt not able to maintain core stability with testing of hip muscle strength. Hip Strength Hip Manual Muscle Testing Right Abduction 4- Good- Internal Rotation 3+ Fair+ Comments Strength is 5/5 except as indicated above. Left External Rotation 4+ Good+ Internal Rotation 3+ Fair+ Comments Strength is 5/5 except as indicated above. PT-OP-Q Treatments Start: 06/23/20 18:11 Freq: Status: Active Protocol: Document 08/03/20 15:12 LRN (Rec: 08/03/20 15:54 LRN [id number]) Therapeutic Exercises Supine Exercises PF w/LE roll in/out & deep breathing Supine Exercise Name PF w/hooklie LE roll in/out & deep breathing Reps/Minutes 6' LE Roll in/out Supine Exercise Name Hooklie: LE roll in/out and with deep breathing Reps/Minutes 17' Comments Training to perform coordinated breathing with movement Hip ER stretch Supine Exercise Name R>L Fig 4 stretch Side bilateral Reps/Minutes 1.5' each, 2x R Comments Extra time for finding ex range tolerance Piriformis stretch Supine Exercise Name DC Comments Causes hip pain Lat hip stretch Supine Exercise Name DC Comments Causes hip and knee pain Deep Breathing Supine Exercise Name Deep Breathing Reps/Minutes 3x Sitting Exercises PF w/ LE roll in/out & deep breathing Sitting Exercise Name PF w/LE roll in/out & deep breathing Side bilateral Reps/Minutes 8' Self-Care/Home Management Treatment Activities Self-Care/Home Management Activities 2' reviewed HEP with DC to Piriformis and lateral hip stretch. Issued & reviewed: Deep breathing technique & Sitting Roll in/outs. Issued Lev 2 T-Band with I/S for pt to use when she is able to coordinated roll in/outs with deep breathing and PF contraction holding. PT-OP-T Assessment and Plan Start: 06/23/20 18:11 Freq: Status: Active Protocol: Document 08/03/20 15:12 LRN (Rec: 08/03/20 15:54 LRN [id number]) Physical Therapy Assessment Goals Five Impairment Decreased PF strength (L 2/5, R 0/5, anter 0/5, websphere commerce consultant 3/5) Short Term Goal (STG) Improve PF strength of right side equal to left and anterior PF strength. STG Duration 11/20/20 (08/03/20: Hindered by poor coodination of breathing w/PF) Half-Way Goal (LTG) Improve PF strength per Long Hold to 10 sec's and Quick Flicks 10 reps prior to fatigue to improve her level of continence in the presence of a strong urge. LTG Duration 10/23/20 Four Impairment Decr hip mobility symmetry (ER 40 R, 60 L; IR 45 R, 35 L; AB 30 R, 40 L) Short Term Goal (STG) Improve symmetry of hip mobility. (07/23/20: HEP issued) STG Duration 08/07/20 (08/03/20: Hindered by shiv hip & R knee pain) Primary Care Pediatrician Goal (LTG) Improve symmetry of PF strength with improved hip symmetry of motion. LTG Duration 09/24/20 Three Impairment Urinary urge with trigger of water flow. Short Term Goal (STG) Pt will be able to minimize urge onset of water flow trigger using delay urinary technique. STG Duration 07/30/20 Two Impairment Urinary leakage in the presence of a strong urge. Short Term Goal (STG) Pt will be educated in urinary delay technique. STG Duration 07/10/20 (07/23/20: MET GOAL) Primary Care Pediatrician Goal (LTG) Pt will be able to maintain urinary continence in the presence of a strong urge. LTG Duration 09/24/20 One Impairment Pt lacks an independent self care HEP Short Term Goal (STG) Pt will be educated in performing a Kegel in isolation of substitute muscles and proper deep breathing with reflexive activation of her transverse abdominals. (08/03/20: Pt able to perform proper deep breathing). STG Duration 07/30/20 (08/03/20: Progressing) Primary Care Pediatrician Goal (LTG) Pt will be independent in a self care HEP for PF strengthening. LTG Duration 09/24/20 (07/23/20: Progressing) Assessment Summary Assessment Pt has low tolerance to hip mobility stretches of the Piriformis and lateral hip, but tolerated slow and gentle manual myokinethetic stretching to the Piriformis and lateral hip without pain. Pt might not be able to advance hip mobility due to history of LBP and bilateral hip pain. Pt has a very flat low back with no tilt in the Sacrum. Pt is having a difficult time coordinating deep breathing with a PF contraction. She tends to hold her breath with a PF contraction, and is not able to breath and roll the LE's in /out without v. and phys. cuing. Pt needs more time to practice; therefore she will have 2 weeks to practice due to holidays. Physical Therapy Plan Frequency and Duration Frequency of Treatment 1x/Week Plan of Care Start Date 06/25/20 Plan of Care End Date 09/24/20 Next Visit Focus/Plan Next Note Type Treatment Note Next Visit Plan Did not use biofeedback today due to pt preference not to; therefore if pt chooses to try : use biofeedback for strengthening and biofeedback training for PF contraction awareness. Due to holiday scheduling, pt will return 08/18/20, discuss if further therapy will be needed to be scheduled with POC by end of August. Review fig 4 stretch & LE roll in/out ex with deep breathing and PF holding. Assess response to use of delay technique for strong urges and trigger (water running) & issue handout. Discuss proper PF care. Teach Kegels for proper sequencing and in isolation of substitute muscles when awareness improved. Progress LE roll in/outs, improve core strength.
--- NOTE | 2020-08-18 11:17 | PT.OTN ---
Current Diagnoses Trochanteric bursitis, right hip (08/18/20) Trochanteric bursitis, left hip (08/18/20) Uterovaginal prolapse, unspecified (08/18/20) Abnormal uterine and vaginal bleeding, unspecified (08/18/20) Physical Therapy Treatment Note PT-OP-A Visit Information Start: 06/23/20 18:11 Freq: Status: Active Protocol: Document 08/18/20 10:34 LRN (Rec: 08/18/20 11:17 LRN [id number]) Out-Patient Physical Therapy Visit Information Visit Information Visit Type Treatment Note Visit Start Time 10:34 Visit Stop Time 11:02 Total Visit Minutes 28 Visit Number 6 Evaluation Information Evaluation Date 06/25/20 Precautions Precautions Low back pain, was severe prior to steroid injection. Neck and R shoulder pain resolved with injection. PT-OP-B Current Condition Start: 06/23/20 18:11 Freq: Status: Active Protocol: Document 06/25/20 13:31 LRN (Rec: 06/25/20 14:22 LRN [id number]) Current Condition History of Current Condition Onset Date Over a year ago. Current Complaints Urinary leakage walking to the bathroom if urge. History of Current Condition Physical therapy for fallen bladder. Had a shot in the R hip in January [address] Martinez with resolution of hip pain. Vaginal bleeding when pessary placed, two times, finally removed several months ago and bleeding stopped. Prior Treatments and Tests Pessary placed x 2, removed due to vaginal bleeding. Future Testing and Treatments Planned Next appt with Dr Palacios is next month. Developmental History Developmental History 2 children and one miscarriage , vaginal deliveries without complications. Denies urinary leakage after having children . Treatment Goals Patient/Caregiver Goals Leakage when in a car or meeting. Maintain continence in the presence of a strong urge. Independent on a HEP Prior Functional Status Baseline Function- ADL's Independent Baseline Function- Mobility Independent Current Functional Impairments (Reported) Functional Limitations- ADL's Urinary leakage (few drops) only with an urge. Personal Factors Other Personal Factors That May Effect History of back and R hip pain Therapy/Recovery , history of bleeding vaginally form pessary. PT-OP-C Subjective Start: 06/23/20 18:11 Freq: Status: Active Protocol: Document 08/18/20 10:34 LRN (Rec: 08/18/20 11:17 LRN [id number]) OP-PT Subjective Patient Comments Patient Comments Dr. Palacios put pessary back in last week. No pain. PT-OP-I Pelvic Floor Start: 06/23/20 18:11 Freq: Status: Active Protocol: Document 06/25/20 13:31 LRN (Rec: 06/26/20 18:35 LRN [id number]) Pelvic Floor Assessment Urine Pelvic Floor Surgery No Urinary Symptoms Prolapse Other Urinary Symptoms Urinary leakage walking in presence of a strong urge. Leakage Size Small Voiding Frequency 7-10 times a day Nocturia 2-3x Prolapse Cystocele Grade 2 Rectocele Grade 2 Prolapse Comments Pt bladder and rectum on bearing down is observed to bulge at least 1 cm above the vaginal opening. Perineal Descent Resting Present Bearing Present Contraction Ability Voluntary Contraction Weak Manual Muscle Testing Left 2 Manual Muscle Testing Right 0 Manual Muscle Testing Anterior 0 Manual Muscle Testing Posterior 3 Muscle Endurance (Seconds) 7 Number of Quick Contractions In 10 3 Seconds PT-OP-J Posture/Palpation/Skin Start: 06/23/20 18:11 Freq: Status: Active Protocol: Document 06/25/20 13:31 LRN (Rec: 06/26/20 18:35 LRN [id number]) Posture Evaluation Position Standing L-Spine Posture Shifted Left Pelvis Posture (L) Iliac Crest Superior Hip Posture (L) Flexed,(R) Flexed Comments Posture Comments Slight C-Curve of spine with apex on the right. PT-OP-K Range of Motion Start: 06/23/20 18:11 Freq: Status: Active Protocol: Document 06/25/20 13:31 LRN (Rec: 06/26/20 18:35 LRN [id number]) Lumbar Spine Range of Motion Lumbar Spine Active Degrees Testing Position Standing Flexion 83 Extension 40 Lateral Flexion Left 13 Lateral Flexion Right 10 Comments Trunk flexion is with 60 degs hip flexion. Trunk extension is with 20 degs hip extension. Hip Goniometric Range of Motion Hip Right Passive Testing Position Supine Straight Leg Raise 90 Abduction 30 Internal Rotation 45 External Rotation 40 Left Passive Testing Position Supine Straight Leg Raise 90 Abduction 40 Internal Rotation 35 External Rotation 60 PT-OP-M Strength Start: 06/23/20 18:11 Freq: Status: Active Protocol: Document 06/25/20 13:31 LRN (Rec: 06/26/20 18:35 LRN [id number]) Trunk Strength Trunk Manual Muscle Testing Core Stabilization Pt not able to maintain core stability with testing of hip muscle strength. Hip Strength Hip Manual Muscle Testing Right Abduction 4- Good- Internal Rotation 3+ Fair+ Comments Strength is 5/5 except as indicated above. Left External Rotation 4+ Good+ Internal Rotation 3+ Fair+ Comments Strength is 5/5 except as indicated above. PT-OP-Q Treatments Start: 06/23/20 18:11 Freq: Status: Active Protocol: Document 08/18/20 10:34 LRN (Rec: 08/18/20 11:17 LR [id number]) Therapeutic Exercises Supine Exercises PF w/LE roll in/out & deep breathing Supine Exercise Name PF w/hooklie LE roll in/out & deep breathing Resistance Lev 2 TB & Ball Reps/Minutes 8' Kegel Supine Exercise Name Kegel in isolation of substitute muscles Reps/Minutes 7' Sitting Exercises PF w/ LE roll in/out & deep breathing Sitting Exercise Name PF w/LE roll in/out with deep breathing. Reps/Minutes 5' Self-Care/Home Management Treatment Education Patient Education Home Exercise Program Other Education Reviewed pt's HEP of hip stretches (ER), deep breathing , & PF strengthening. Issued & reviewed Urge deference technique for pt to utilize if urinary urge returns. PT-OP-T Assessment and Plan Start: 06/23/20 18:11 Freq: Status: Active Protocol: Document 08/18/20 10:34 LRN (Rec: 08/18/20 11:17 [facility] [id number]) Physical Therapy Assessment Goals Five Impairment Decreased PF strength (L 2/5, R 0/5, anter 0/5, guest services lead 3/5) Short Term Goal (STG) Improve PF strength of right side equal to left and anterior PF strength. STG Duration 08/07/20 (08/03/20: Hindered by poor coordination of breathing w/PF) Usp Goal (LTG) Improve PF strength per Long Hold to 10 sec's and Quick Flicks 10 reps prior to fatigue to improve her level of continence in the presence of a strong urge. LTG Duration 10/23/20 (08/19/20: NOT assessed, early discharge w/ pessary in place) Four Impairment Decr hip mobility symmetry (ER 40 R, 60 L; IR 45 R, 35 L; AB 30 R, 40 L) Short Term Goal (STG) Improve symmetry of hip mobility. (07/23/20: HEP issued) STG Duration 08/07/20 (08/03/20: Hindered by shiv hip & R knee pain) Horticulture Instructor Goal (LTG) Improve symmetry of PF strength with improved hip symmetry of motion. LTG Duration 09/24/20 (08/18/10: NOT assessed, early discharge w/ pessary in place) Three Impairment Urinary urge with trigger of water flow. Short Term Goal (STG) Pt will be able to minimize urge onset of water flow trigger using delay urinary technique. STG Duration 07/30/20 (08/18/20: MET GOAL) Two Impairment Urinary leakage in the presence of a strong urge. Short Term Goal (STG) Pt will be educated in urinary delay technique. STG Duration 07/10/20 (07/23/20: MET GOAL) Horticulture Instructor Goal (LTG) Pt will be able to maintain urinary continence in the presence of a strong urge. LTG Duration 09/24/20 (08/18/20: MET GOAL: Pt not having urges w/ pessary) One Impairment Pt lacks an independent self care HEP Short Term Goal (STG) Pt will be educated in performing a Kegel in isolation of substitute muscles and proper deep breathing with reflexive activation of her transverse abdominals. (08/18/20: Pt able to perform proper deep breathing and demonstrates PF contraction without substitute muscles). STG Duration 07/30/20 (08/18/20: MET GOAL) Usp Goal (LTG) Pt will be independent in a self care HEP for PF strengthening. LTG Duration 09/24/20 (08/18/20: PARTIALLY MET GOAL, pt on initial PF strengthening HEP) Assessment Summary Assessment Pt symptoms of urgency and urinary leakage with urgency appear to have resolved with pessary recently placed. The pt feels there is no need for PT since her symptoms have resolved. Pt appears to have an understanding of PF contraction in isolation of substitute muscles; therefore she should be able to keep on her HEP to progress her PF strength over time. Physical Therapy Plan Discharge Physical Therapy Discharge Reasons Change in Medical Status Discharge Comments Pt had pessary recently placed and pt symptoms of incontinence resolved; therefore pt requests DC.
== END 2020-09-17 08:23 | disposition home or self-care (01) ==
LOC: PHYS 10:30
PROVIDERS: Family Provider Nurse Practitioner Family; PCP Nurse Practitioner Family; Referring Provider Obstetrics & Gynecology; Visit Provider Obstetrics & Gynecology
DX: N93.9 Abnormal uterine and vaginal bleeding, unspecified (principal); N81.4 Uterovaginal prolapse, unspecified; M70.61 Trochanteric bursitis, right hip; M70.62 Trochanteric bursitis, left hip
CPT/HCPCS: 97110; 97161; 97535

== ENCOUNTER → 2020-11-18 11:06 | Outpatient (CLI) | payer MEDICARE, OTHER, SELFPAY ==
--- NOTE | 2020-11-18 11:07 | DI.US.S_ITS ---
PROCEDURE: US PELVIC COMPLETE INDICATIONS: PMB TECHNIQUE: Real-time scanning was performed of the pelvic organs, with image documentation. Additional endovaginal scanning was necessary due to incomplete visualization of the adnexal and endometrial structures by transabdominal scanning. COMPARISON: [facility], , PELVIC COMPLETE, 04/02/2020, 9:06. FINDINGS: Uterus: Uterus is normal in size at 3.1 x 5.2 x 8.5 cm. The endometrium measures 4.0 mm in combined thickness. Ovaries: The left ovary is not seen, the right ovary appears normal measuring 0.9 x 1.3 x 2.4 cm, with normal blood flow. Other: No pathologic free abdominal or pelvic fluid. IMPRESSION: Normal endometrial lining thickness, normal myometrium and right ovary, nonvisualization of the left ovary likely due to bowel gas. Source of reported postmenopausal bleeding is not seen. Dictated by: Donald eBck M.D. on 11/18/2020 at 14:36 Approved by: Donald Beck M.D. on 11/18/2020 at 14:38
== END ==
PROVIDERS: Family Provider Nurse Practitioner Family; PCP Nurse Practitioner Family; Referring Provider Obstetrics & Gynecology; Visit Provider Obstetrics & Gynecology
DX: N95.0 Postmenopausal bleeding (principal)
CPT/HCPCS: 76830; 76856

== ENCOUNTER → 2020-12-30 07:31 | Outpatient (CLI) | payer MEDICARE, OTHER, SELFPAY ==
[2020-12-30 08:39] LABS: Hematocrit 41.8 % (36-46); Hemoglobin 13.8 g/dL (12.0-16.0); Mean Corpuscular Hemoglobin 31.4 PG (26-34); Mean Corpuscular Volume 95.1 fL (80-100); Platelet Count 213 X10^3/uL (150-400); Red Cell Distribution Width 13.3 % (11.6-14.8); White Blood Cell Count 4.4 X10^3/uL (4.5-11.0)
[2020-12-30 08:59] LABS: Alanine Aminotransferase 22 IU/L (<35); Albumin Globulin Ratio 1.6 (1.0-2.8); Alkaline Phosphatase 42 U/L (38-126); Aspartate Aminotransferase 24 IU/L (14-36); BUN Creatinine Ratio 27.1 (6-22); Bilirubin Total 0.6 mg/dL (0.2-1.3); Blood Urea Nitrogen 23 mg/dL (7-17); Calcium 9.6 mg/dL (8.4-10.2); Carbon Dioxide 28 mmol/L (22-32); Chloride 102 mmol/L (98-107); Cholesterol 159 mg/dL (140-199); Estimated Glomerular Filt Rate > 60.0 mL/min (>60); Globulin 2.5 g/dL (1.7-4.1); Glucose 107 mg/dL (80-110); HDL Cholesterol 51 mg/dL (40-60); HEMOLYSIS < 15 (0-50); LDL Cholesterol Calculated 93 mg/dL (<100); Potassium 4.1 mmol/L (3.4-5.1); Sodium 137 mmol/L (137-145); Total Protein 6.5 g/dL (6.3-8.2); Triglycerides 74 mg/dL (35-150)
== END ==
PROVIDERS: Family Provider Nurse Practitioner Family; PCP Nurse Practitioner Family; Referring Provider Nurse Practitioner Family; Visit Provider Nurse Practitioner Family
DX: I10 Essential (primary) hypertension (principal); E78.5 Hyperlipidemia, unspecified
CPT/HCPCS: 36415; 80053; 80061; 85027

== ENCOUNTER → 2021-01-14 09:00 | Outpatient (CLI) | payer MEDICARE, OTHER, SELFPAY ==
[2021-01-14 09:24] LABS: COVID19 -Nasal RAPID Negative (Negative)
== END ==
PROVIDERS: Family Provider Nurse Practitioner Family; PCP Nurse Practitioner Family; Visit Provider Obstetrics & Gynecology
DX: Z01.812 Encounter for preprocedural laboratory examination (principal); Z20.822 Contact with and (suspected) exposure to COVID-19
CPT/HCPCS: 87635

== ENCOUNTER 2021-01-15 06:30 | Day surgery (SDC) | payer MEDICARE, OTHER, SELFPAY ==
[2021-01-13 12:34] VITALS: BMI 27.4
[2021-01-15] VITALS (17 sets, daily range): BP systolic 97–145; BP diastolic 54–80; PULSE 50–81; RESP 12–18; TEMP 35.8–36.8; O2SAT 92–100; BMI 25.7
[2021-01-15] MEDS: ACETAMINOPHEN 325 MG TABLET 975 MG PO (07:24)
[2021-01-15] MEDS: GABAPENTIN 300 MG CAPSULE PO (07:24)
[2021-01-15] MEDS: LACTATED RINGERS 1,000 ML 100 ML IV ×3 (07:26→19:39)
[2021-01-15 07:29] LABS: Add Manual Diff / Slide Review NO; Basophils Absolute Auto 0 /uL (0-100); Basophils Percent Auto 0.5 % (0-2); Eosinophils Absolute Auto 100 /uL (0-450); Eosinophils Percent Auto 3.5 % (2-4); Hematocrit 44.1 % (36-46); Hemoglobin 14.3 g/dL (12.0-16.0); Lymphocytes Absolute Auto 1200 /uL (1100-4500); Lymphocytes Percent Auto 30.9 % (25-40); Mean Corpuscular HGB Conc 32.5 % (30-36); Mean Corpuscular Hemoglobin 30.8 PG (26-34); Mean Corpuscular Volume 94.7 fL (80-100); Monocytes Absolute Auto 600 /uL (0-900); Monocytes Percent Auto 14.4 % (3-14); Neutrophils Absolute Auto 2000 /uL (1500-7000); Neutrophils Percent Auto 50.7 % (50-75); Platelet Count 198 X10^3/uL (150-400); Red Blood Cell Count 4.66 X10^6/uL (4.0-5.2); Red Cell Distribution Width 13.1 % (11.6-14.8)
[2021-01-15 07:39] LABS: BUN Creatinine Ratio 29.9 (6-22); Blood Urea Nitrogen 23 mg/dL (7-17); Calcium 9.2 mg/dL (8.4-10.2); Carbon Dioxide 28 mmol/L (22-32); Chloride 104 mmol/L (98-107); Estimated Glomerular Filt Rate > 60.0 mL/min (>60); Glucose 104 mg/dL (80-110); HEMOLYSIS < 15 (0-50); Potassium 3.8 mmol/L (3.4-5.1); Sodium 139 mmol/L (137-145)
--- NOTE | 2021-01-15 07:43 | PM.PREOP ---
Pre-operative Note COVID-19 COVID-19 status: Negative Result date/Date tested (Pos, Neg/Pending): 01/14/21 Interval Note History & Physical reviewed/Exam performed by Physician: Yes Changes to H&P: No
[2021-01-15] MEDS: CEFAZOLIN 2 GM/100 ML FROZ.PIGGY IV (07:55)
--- NOTE | 2021-01-15 08:16 | SUR.OPER ---
Lithotomy on padded OR bed, head on pillow, arms secured on padded arm boards at <90 degrees abduction. Legs secured in padded yellow fins stirrups.
[2021-01-15] MEDS: BUPIVACAINE 0.5% W/ EPI (PF) 30 ML VIAL INJ (08:23)
--- NOTE | 2021-01-15 08:58 | P.OP_ITS ---
Operative Date/Time/Diagnoses Date of procedure: 01/15/21 Time of procedure: 08:00 Pre-op diagnosis: cystocele Post-op diagnosis: same Procedure & Clinicians Procedure: anterior repair Same procedure as scheduled: Yes Indications: symptomatic cystocele Surgeon: Milena Palacios [employer] Team Member: Annabella Watson Anesthesia Type: General Operative Notes Findings: moderate cystocele. No significant apical prolapse, good urethral support, no significant rectocele. Closure Type: primary Specimen(s): none sent Estimated Blood Loss (mL): 25 Procedure in detail: After informed consent was obtained, the patient was taken to the operating room where general anesthesia was obtained without difficulty. She was prepped and draped in the usual sterile fashion, with sequential compression devices in place and running and s/p 2g Ancef. Straight catheterization was performed. Attention was then turned to the anterior vaginal wall, where a moderate cystocele was noted. 10ccs of a dilute solution of 0.5% bupivicaine with epinephrine was injected into the vaginal mucosa, and a 3.5cm area over the cystocele extending to the mid urethra was grasped at either end with Allis clamps and a midline, vertical incision made with a scalpel. The vaginal mucosa was dissected away from the cystocele with a combination of blunt and sharp dissection. 2-0 vicryl was used in a purse string suture to reduce the bulk of the cystocele, and 0 vicryl was used in an interrupted fashion to reapproximate the visible torn fascial layer and the lateral layers of the vaginal tissue. 1.5mm was trimmed from the vaginal mucosa bilaterally, and the vaginal mucosa reapproximated in a running, locked fashion with 2-0 vicryl. A silva catheter was placed in the bladder and vaginal packing placed in the vagina, to be left overnight. The patient tolerated the procedure well, and was taken to the PACU in stable condition. Sponge and needle counts were correct x2. IVF 650ccs LR UO N/A EBL 25ccs Complications: none Post-operative Condition: stable Disposition: PACU Plan for aftercare: Patient to be admitted overnight with vaginal packing and silva catheter.
[2021-01-15] MEDS: OXYCODONE IR 5 MG TABLET PO ×2 (09:33→21:46)
--- NOTE | 2021-01-15 11:37 | PC.NURSE ---
Patient alert, oriented denies pain and nausea. Siddiqui patent with clear yellow urine. Oriented to room and call light.
[2021-01-15] MEDS: ACETAMINOPHEN 325 MG TABLET 650 MG PO (19:39)
[2021-01-16] VITALS: BP 119/65; PULSE 70; RESP 18; TEMP 36.5; O2SAT 97
[2021-01-16] MEDS: LACTATED RINGERS 1,000 ML 100 ML IV (05:08)
[2021-01-16 05:43] LABS: Add Manual Diff / Slide Review NO; Basophils Absolute Auto 0 /uL (0-100); Basophils Percent Auto 0.1 % (0-2); Eosinophils Absolute Auto 0 /uL (0-450); Eosinophils Percent Auto 0.1 % (2-4); Hematocrit 37.3 % (36-46); Hemoglobin 12.8 g/dL (12.0-16.0); Lymphocytes Absolute Auto 900 /uL (1100-4500); Mean Corpuscular HGB Conc 34.1 % (30-36); Mean Corpuscular Hemoglobin 31.8 PG (26-34); Monocytes Absolute Auto 1000 /uL (0-900); Monocytes Percent Auto 6.5 % (3-14); Neutrophils Absolute Auto 13600 /uL (1500-7000); Neutrophils Percent Auto 87.3 % (50-75); Platelet Count 175 X10^3/uL (150-400); Red Blood Cell Count 4.02 X10^6/uL (4.0-5.2); Red Cell Distribution Width 13.1 % (11.6-14.8)
[2021-01-16 05:50] VITALS: BP 111/63; PULSE 62; RESP 18; TEMP 36.6; O2SAT 96
[2021-01-16 05:59] LABS: White Blood Cell Count 15.5 X10^3/uL (4.5-11.0)
[2021-01-16 06:00] LABS: BUN Creatinine Ratio 24.6 (6-22); Blood Urea Nitrogen 17 mg/dL (7-17); Calcium 9.1 mg/dL (8.4-10.2); Carbon Dioxide 26 mmol/L (22-32); Chloride 103 mmol/L (98-107); Estimated Glomerular Filt Rate > 60.0 mL/min (>60); Glucose 136 mg/dL (80-110); HEMOLYSIS < 15 (0-50); Potassium 4.4 mmol/L (3.4-5.1); Sodium 135 mmol/L (137-145)
--- NOTE | 2021-01-16 08:01 | P.DS_ITS ---
History of Present Illness History of Present Illness Date Patient Seen: 01/16/21 Time Patient Seen: 07:30 Chief complaint: ANTERIOR REPAIR *OPB* Narrative: This patient is a 75-year-old now postop day 1 status post uncomplicated anterior repair for an isolated, symptomatic cystocele. The patient's surgery was uncomplicated, and she remain in-house overnight with vaginal packing and a Siddiqui catheter in place. The patient reported feeling well, requiring only Motrin for pain relief. Patient had no signs symptoms of infection, though she had a slight reactive white count. She met postoperative goals appropriately, and her packing and Siddiqui were removed on the morning of postop day 1. She passed a voiding trial, and was discharged home later that day. Discharge Providers Provider Discharge Date: 01/16/21 Primary care physician: EMI Jose Discharge provider: Mliena Palacios MD Summary Hospital Course Discharge Diagnosis: Status post anterior repair Hospital Course: This patient is a 75-year-old now postop day 1 status post uncomplicated anterior repair for an isolated, symptomatic cystocele. The patient's surgery was uncomplicated, and she remain in-house overnight with vaginal packing and a Siddiqui catheter in place. The patient reported feeling well, requiring only Motrin for pain relief. Patient had no signs symptoms of infection, though she had a slight reactive white count. She met postoperative goals appropriately, and her packing and Siddiqui were removed on the morning of postop day 1. She passed a voiding trial, and was discharged home later that day. Status at Discharge Cognitive/behavioral status at discharge: oriented Functional status at discharge: independent ambulation Overall status at discharge: patient is progressing back to baseline Time Spent with Patient Time spent: Less than 30 minutes Exam Vital Signs (past 8 hours): - 01/16/21 05:50 Temperature 97.9 F Pulse Rate 62 Respiratory Rate 18 Blood Pressure 111/63 Pulse Oximetry 96 Oxygen Delivery Method Room Air Oxygen Flow Rate 0 Narrative Exam Narrative: Patient resting in bed, reading a book and awaiting breakfast. Patient reports no pain this morning, no fevers, chills. Is passing flatus, has ambulated and tolerated dinner last night. Const General: cooperative, healthy appearing and comfortable Resp Effort & Inspection: normal respiratory effort Auscultation: clear to auscultation bilaterally Cardio Rate: regular rate GI Palpation: soft and No tender External Female Exam: normal external appearance and other (Packing removed without difficulty, lightly blood-tinged in spots) Other: Siddiqui catheter removed, clear yellow urine Objective Labs Result Diagrams: 01/16/21 05:30 01/16/21 05:30 Labs: Laboratory Results - last 24 hr 01/15/21 01/16/21 01/16/21 07:20 05:30 05:30 WBC 15.5 H D RBC 4.02 Hgb 12.8 Hct 37.3 MCV 93.0 MCH 31.8 MCHC 34.1 RDW 13.1 Plt Count 175 Neut % (Auto) 87.3 H D Lymph % (Auto) 6.0 L D [place] % (Auto) 6.5 Eos % (Auto) 0.1 L Baso % (Auto) 0.1 Neut # (Auto) 64847 H Lymph # (Auto) 900 L [place] # (Auto) 1000 H Eos # (Auto) 0 Baso # (Auto) 0 Sodium 135 L Potassium 4.4 Chloride 103 Carbon Dioxide 26 BUN 17 Creatinine 0.69 Estimated GFR > 60.0 BUN/Creatinine Ratio 24.6 H Glucose 136 H Calcium 9.1 Blood Type A Negative Antibody Screen Negative [facility] Medical History Colon polyps Hyperlipidemia (1999) Hypertension (1999) Microscopic hematuria Osteopenia Screening mammogram, encounter for Social History household members: spouse Smoking Status: Never smoker second hand exposure: No alcohol intake: never substance use type: does not use Discharge Assessment & Plan Assessment and Plan Assessment: This patient is doing well on postop day 1, meeting postoperative goals with no signs or symptoms of infection. The patient is discharged home after passing a voiding trial. Plan of Treatment: Routine postoperative care discussed. Discharge Plan Discharge Plan Patient Disposition: Home Discharge orders & Medications Discharge Orders: Discharge (Order); Ordered 01/16/21 Ordered By: Milena Palacios Prescriptions: Continued aspirin 81 mg Tablet,Delayed Release (Dr/Ec) 81 mg PO DAILY Qty: 0 RF: 0 ascorbic acid (vitamin C) [Vitamin C] 1,000 mg Tablet 1 g PO DAILY Qty: 0 RF: 0 omega-3 fatty acids-vitamin E 1,000 mg Capsule 2 cap PO DAILY Qty: 0 RF: 0 cholecalciferol (vitamin D3) [Vitamin D3] 1,000 UNIT tablet 1,000 iu PO Q DAY Qty: 0 RF: 0 conjugated estrogens [Premarin] 0.625 mg/gram cream See Rx Instructions .ROUTE .COMPLEX Qty: 30 RF: 9 ipratropium bromide 42 mcg (0.06 %) spray,non-aerosol 2 spray NASAL TID-QID PRN (Reason: allergy symptoms) Qty: 15 RF: 0 simvastatin 40 mg tablet See Rx Instructions .ROUTE .COMPLEX Qty: 90 RF: 1 atenolol 25 mg tablet See Rx Instructions .ROUTE .COMPLEX Qty: 90 RF: 1 hydrochlorothiazide 12.5 mg tablet 12.5 mg PO QDAY Qty: 90 RF: 1 Probiotic See Rx Instructions .ROUTE .COMPLEX RF: 0 calcium carbonate-vitamin D2 600 mg calcium- 200 unit Tablet 1 tab PO DAILY RF: 0 Follow up/Referrals: Jacob Pagan ARNP [Primary Care Provider] - Milena Palacios MD [Physician] - 2 Weeks (Postop check for anterior repair) Diet/Activity/Treatments Diet: Regular Activity: Nothing in the vagina for 12 weeks. Avoid lifting more than 10 lb for 12 weeks. If you have increasing fevers, chills, vaginal bleeding or discharge, trouble urinating, or any other symptoms or concerns, call the office number or come to the emergency room. Skin/Wound/Dressing Care Report to your healthcare provider any signs of infection, such as:: chills, fever, night sweats, increased pain, unusual drainage and unusual redness Visit Report/Discharge Packet Instructions: Cystocele and Rectocele Repair Stand Alone Forms: Patient Portal/API, Surgery Discharge Discharge Data Primary Care Provider: Jacob Pagan Attending Provider: Milena Palacios Quality VTE Deep Vein Thrombosis/Pulmonary Embolism Present on Admission: No
[2021-01-16 09:10] VITALS: BP 137/73; PULSE 70; RESP 16; TEMP 36.4; O2SAT 97
[2021-01-16] MEDS: atenoloL 25 MG TABLET PO (09:21)
--- NOTE | 2021-01-16 10:48 | PC.NURSE ---
Discharge education given to pt and spouse, discussed- s/s of infection, f/u appts, s/s of stroke, medications, worsening symptoms and reasons to seek medical attention. IV removed, intact, tolerated well. All questions answered. Pt dressed independently. Call service number given to pt, if any concerns over weekend. Pt left via w/c accompanied by FUNDRAISING CONSULTANT and spouse, to POV.
--- NOTE | 2021-01-16 13:12 | CM.IDA ---
Initial DCP Assessment Note Patient is a 75 yo female, resident of [place]. Patient is POD#1 from anterior repair of a symptomatic cystocele. According to Dr Keysha's DC Summary this morning: The patient's surgery was uncomplicated, and she remain in-house overnight with vaginal packing and a Siddiqui catheter in place. The patient reported feeling well, requiring only Motrin for pain relief. Patient had no signs symptoms of infection, though she had a slight reactive white count. She met postoperative goals appropriately, and her packing and Siddiqui were removed on the morning of postop day 1. She passed a voiding trial, and was discharged home later that day. PCP: Jacob Pagan Payer: [facility]/ [employer] Patient and spouse were presented w/DC instructions, no needs identified from this PRODUCT APPLICATIONS SCIENTIST Plan: DC home w/spouse, close outpatient f/u RICA Garcia
== END 2021-01-16 10:52 | disposition home or self-care (01) ==
LOC: OR 06:32 → AC 06:33
PROVIDERS: Family Provider Nurse Practitioner Family; PCP Nurse Practitioner Family; Referring Provider Nurse Practitioner Family; Visit Provider Obstetrics & Gynecology
PROC: (CPT 57240; principal; 2021-01-15 07:45)
DX: N81.10 Cystocele, unspecified (principal); E78.5 Hyperlipidemia, unspecified; I10 Essential (primary) hypertension
CPT/HCPCS: 57240; 36415; 80048; 82962; 85025; 86850; 86900; 86901; J0690; J1100; J2405; J2704

== ENCOUNTER → 2021-03-20 08:05 | Outpatient (CLI) | payer MEDICARE, OTHER, SELFPAY ==
[2021-01-15 10:05] VITALS: BMI 25.7
--- NOTE | 2021-03-20 08:06 | DI.MG.S_ITS ---
BILATERAL DIGITAL SCREENING MAMMOGRAM 3D/2D WITH CAD: 03/20/2021 CLINICAL: Routine screening. Comparison is made to exams dated: 03/18/2020 mammogram, 01/07/2019 mammogram, and 12/20/2017 mammogram - [facility]. There are scattered fibroglandular elements in both breasts. Current study was also evaluated with a Computer Aided Detection (CAD) system. There are benign calcifications in both breasts. There also are benign vascular calcifications in both breasts. No significant masses, calcifications, or other findings are seen in either breast. There has been no significant interval change. IMPRESSION: BENIGN There is no mammographic evidence of malignancy. A 1 year screening mammogram is recommended. This exam was interpreted at Station ID: [id number]. NOTE: For mammograms, a report in lay terms will be sent to the patient. Approximately 15% of breast malignancies will not be visualized mammographically. In the management of a palpable breast mass, a negative mammogram must not discourage biopsy of a clinically suspicious lesion. Electronically Signed By: Papo khan/garima:03/23/2021 07:35:59 letter sent: Normal Exam ACR BI-RADS Category 2: Benign Finding(s) [id number]
== END ==
PROVIDERS: Family Provider Nurse Practitioner Family; PCP Nurse Practitioner Family; Referring Provider Nurse Practitioner Family; Visit Provider Nurse Practitioner Family
DX: Z12.31 Encounter for screening mammogram for malignant neoplasm of breast (principal)
CPT/HCPCS: 77063; 77067

== ENCOUNTER → 2021-04-29 11:07 | Outpatient (CLI) | payer MEDICARE, OTHER, SELFPAY ==
[2021-01-15 10:05] VITALS: BMI 25.7
[2021-04-29 11:40] LABS: Hematocrit 40.9 % (36-46); Hemoglobin 13.7 g/dL (12.0-16.0); Mean Corpuscular HGB Conc 33.4 % (30-36); Mean Corpuscular Hemoglobin 31.6 PG (26-34); Mean Corpuscular Volume 94.5 fL (80-100); Platelet Count 200 X10^3/uL (150-400); Red Blood Cell Count 4.32 X10^6/uL (4.0-5.2); Red Cell Distribution Width 13.6 % (11.6-14.8); White Blood Cell Count 5.4 X10^3/uL (4.5-11.0)
[2021-04-29 12:17] LABS: Alanine Aminotransferase 21 IU/L (<35); Albumin 4.1 g/dL (3.5-5.0); Albumin Globulin Ratio 1.6 (1.0-2.8); Alkaline Phosphatase 42 U/L (38-126); Aspartate Aminotransferase 25 IU/L (14-36); BUN Creatinine Ratio 24.7 (6-22); Bilirubin Total 0.6 mg/dL (0.2-1.3); Blood Urea Nitrogen 19 mg/dL (7-17); Carbon Dioxide 32 mmol/L (22-32); Chloride 104 mmol/L (98-107); Estimated Glomerular Filt Rate > 60.0 mL/min (>60); Globulin 2.6 g/dL (1.7-4.1); Glucose 107 mg/dL (80-110); HEMOLYSIS < 15 (0-50); Potassium 4.5 mmol/L (3.4-5.1); Sodium 140 mmol/L (137-145); Total Protein 6.7 g/dL (6.3-8.2)
[2021-04-29 12:47] LABS: TSH w/ Reflex to FT4 0.86 uIU/mL (0.47-4.68)
[2021-04-29 13:15] LABS: Microalbumin Urine Random < 0.6 mg/dL (0-1.6)
[2021-04-30 14:41] LABS: Interpretation Negative (Negative)
== END ==
PROVIDERS: Family Provider Nurse Practitioner Family; PCP Nurse Practitioner Family; Referring Provider Nurse Practitioner Family; Visit Provider Nurse Practitioner Family
DX: I10 Essential (primary) hypertension (principal); K21.9 Gastro-esophageal reflux disease without esophagitis; I49.9 Cardiac arrhythmia, unspecified; M85.80 Other specified disorders of bone density and structure, unspecified site
CPT/HCPCS: 36415; 80053; 82043; 82570; 83013; 84443; 85027

== ENCOUNTER → 2021-05-12 09:31 | Outpatient (CLI) | payer MEDICARE, OTHER, SELFPAY ==
[2021-01-15 10:05] VITALS: BMI 25.7
--- NOTE | 2021-06-02 10:22 | PM.CARDMON.1 ---
[employer] Report Referral & Results Date Patient Seen: 05/12/21 Requesting provider: Jacob Pagan Indication: Chest pain Duration of monitoring (days): 7 Diary information: There are no patient events to review Data: Minimum heart rate identified was 53 beats per minute at 14:08 on 05/13/2021 Maximum sinus heart rate was 145 beats per minute at 13:42 on 05/16/2021 Maximum overall heart rate was 193 beats per minute at 08:00 on 05/19/2021 during a 5 beat run of SVT Approximately 3.7% of identified beats were supraventricular ectopic in origin which would classify them as occasional Less than 1% of identified beats were ventricular ectopic in origin classifying them as rare There were 2 runs of SVT the fastest being the run noted above and the longest lasting 13 beats Impression: 7 day child monitor demonstrating occasional PACs and very rare very brief runs of SVT Clinical correlation suggested
== END ==
PROVIDERS: Family Provider Nurse Practitioner Family; PCP Nurse Practitioner Family; Referring Provider Nurse Practitioner Family; Visit Provider Nurse Practitioner Family
DX: R07.9 Chest pain, unspecified (principal); I49.9 Cardiac arrhythmia, unspecified
CPT/HCPCS: 93242; 93244

== ENCOUNTER → 2021-05-25 07:55 | Outpatient (CLI) | payer MEDICARE, OTHER, SELFPAY ==
[2021-01-15 10:05] VITALS: BMI 25.7
--- NOTE | 2021-05-25 07:56 | DI.ECHO.S_ITS ---
[place] [facility]---------+ [facility] +---------+ : : [address] : [address] : : : : [id number] : : : : Phone: [phone]+ Echocardiogram Report + + :Name: PARI GUTIERREZ Study Date: 05/25/2021 Height: 64.5 in : :[facility] ReadingLocation: Weight: 157 lb : : Gender: Female BSA: 1.8 m2 : :: 1945 Age: 76 yrs BP: 161/100 mmHg: :Reason For Study: CHEST PAIN : :Ordering Physician: TRINIDAD, : :SIXTO Performed By: Karina Amezquita : :Referring: SIXTO ABDI : + + Interpretation Summary Normal sinus rhythm. Normal LV size, wall thickness, wall motion and LV systolic function. EF is 60-65%. Stage I diastolic dysfunction. Normal chamber sizes. No valvular abnormalities. No prior study available for comparison. Procedure: A two-dimensional transthoracic echocardiogram with color flow and Doppler was performed. The study quality was technically adequate. There is no prior echocardiogram noted for this patient. The patient was in sinus rhythm with heart rates between 59-70 bpm during the exam. Left Ventricle: The left ventricle is normal in size and wall thickness. The ejection fraction is estimated to be 60-65%. Right Ventricle: The right ventricle is normal in size and function. Atria: The left atrial size is normal. Right atrial size is normal. There is no Doppler evidence for an interatrial shunt. Mitral Valve: The mitral valve is normal in structure and function. There is mild mitral regurgitation. Aortic Valve: The aortic valve is trileaflet. The aortic valve opens well. There is no aortic valve stenosis. No aortic regurgitation is present. Tricuspid Valve: The tricuspid valve is normal in structure and function. There is mild tricuspid regurgitation. The right ventricular systolic pressure is estimated to be at least 34 mmHg based on an estimated right atrial pressure of 3 mm Hg. Pulmonic Valve: The pulmonic valve leaflets are thin and pliable; valve motion is normal. There is mild pulmonic regurgitation. Great Vessels: The aortic root is normal size. The dimensions of the ascending aorta are normal. The IVC is of normal diameter and collapses greater than 50% with a sniff. This suggests a low right atrial pressure of 3 mm Hg. Pericardium/ Pleura There is no pericardial effusion. There is no pleural effusion. MMode/2D Measurements & Calculations LVIDd: 4.5 cm LVOT diam: 1.8 cm LVIDs: 2.9 cm Ao root diam: 2.9 cm FS: 35.0 % asc Aorta Diam: 3.1 cm IVSd: 0.93 cm Ao Arch Diam (Prox Trans): 2.6 cm LVPWd: 0.70 cm LV cobian. diameter/BSA (cm/m^2): 2.5 LV sys. diameter/BSA (cm/m^2): 1.6 LA A2 area: 15.7 cm2 RA long axis: 4.4 cm LA A4 area: 15.6 cm2 RA area: 12.7 cm2 LA length (vol): 4.7 cm RA vol: 31.4 ml LA vol: 43.6 ml RA : 17.7 ml/m2 LA vol index: 24.6 ml/m2 IVC diam: 0.96 cm RVD1 (basal): 3.0 cm TAPSE: 2.1 cm Doppler Measurements & Calculations Ao V2 max: 121.7 cm/sec LVOT Max Norman: 101.0 cm/sec Ao V2 mean: 84.3 cm/sec LV V1 max P.1 mmHg Ao max P.9 mmHg LV V1 VTI: 25.7 cm Ao mean P.2 mmHg NADEGE(I,D): 2.5 cm2 Ao V2 VTI: 25.3 cm NADEGE(V,D): 2.1 cm2 sev ratio: 1.0 NADEGE indexed to BSA (cm^2/m^2): 1.4 MV E max norman: 71.1 cm/sec TR max norman: 277.6 cm/sec MV A max norman: 79.1 cm/sec TR max P.8 mmHg MV E/A: 0.90 PA V2 max: 93.0 cm/sec Med Peak E' Norman: 4.9 cm/sec PA V2 mean: 63.9 cm/sec E/E' med: 14.6 PA mean P.8 mmHg Lat Peak E' Norman: 8.1 cm/sec PA pr(Accel): 34.5 mmHg E/E' lat: 8.8 E/e' average: 11.7 MV dec time: 0.27 sec SV(LVOT): 63.6 ml Electronically signed by: Carrie Barriga M.D. on Reading Physician:05/26/2021 12:10 AM
== END ==
PROVIDERS: Family Provider Nurse Practitioner Family; PCP Nurse Practitioner Family; Referring Provider Nurse Practitioner Family; Visit Provider Student in an Organized Health Care Education/Training Program
DX: I08.1 Rheumatic disorders of both mitral and tricuspid valves (principal); R07.9 Chest pain, unspecified; I49.9 Cardiac arrhythmia, unspecified
CPT/HCPCS: 93306

== ENCOUNTER → 2021-05-26 10:18 | Outpatient (CLI) | payer MEDICARE, OTHER, SELFPAY ==
[2021-01-15 10:05] VITALS: BMI 25.7
[2021-05-26 15:27] LABS: COVID19 -Nasal RAPID Negative (Negative)
== END ==
PROVIDERS: Family Provider Nurse Practitioner Family; PCP Nurse Practitioner Family; Visit Provider Physician Assistant
DX: Z20.822 Contact with and (suspected) exposure to COVID-19 (principal)
CPT/HCPCS: 87635; C9803

== ENCOUNTER → 2021-05-27 13:09 | Outpatient (CLI) | payer MEDICARE, OTHER, SELFPAY ==
[2021-01-15 10:05] VITALS: BMI 25.7
--- NOTE | 2021-05-27 14:34 | PM.TREADMILL ---
Cardiac Stress Test Report Referral & Results Date Patient Seen: 05/27/21 Requesting provider: Jacob Pagan Indication: Chest pain Rest ECG: Borderline probably nonpathologic Q-waves inferiorly Procedure Note: Today following both written and verbal informed consent, the patient was exercised according to a standard Saurav protocol. The patient exercised for a total of 6 minutes 8 seconds achieving a maximum heart rate of 153. Patient's maximum systolic blood pressure was 200. This was an estimated 7.0 MET's. There are no ST-T segment changes Somewhat tachycardic and response to exercise. Blood pressure response normal Function aerobic impairment about-15% on the active scale or 15% better than average Impression: No evidence of ischemia and excellent exercise capacity Please note: Actual ECG tracings can be found in the PACS system.
== END ==
PROVIDERS: Family Provider Nurse Practitioner Family; PCP Nurse Practitioner Family; Referring Provider Student in an Organized Health Care Education/Training Program; Visit Provider Student in an Organized Health Care Education/Training Program
DX: R07.9 Chest pain, unspecified (principal); I49.9 Cardiac arrhythmia, unspecified
CPT/HCPCS: 93016; 93017; 93018

== ENCOUNTER → 2021-08-02 11:35 | Outpatient (CLI) | payer MEDICARE, OTHER, SELFPAY ==
[2021-01-15 10:05] VITALS: BMI 25.7
--- NOTE | 2021-08-02 | DI.MRI.S_ITS ---
PROCEDURE: MR PELVIS WO CON INDICATIONS: Other bursitis of hip, right hip TECHNIQUE: Noncontrast coronal and axial T1 spin echo and STIR through the bony pelvis. COMPARISON: [facility], , PELVIS WITHOUT CONTRAST, 07/08/2014, 17:36. FINDINGS: Image quality: Excellent. Bones: Bone marrow of the pelvic ring, sacrum, and proximal femurs show normal signal throughout. No intraosseous lesions or fractures identified. The visualized lower lumbar spine appears normally aligned. Tendons: T2 hyperintense/T1 hypointense signal is seen in the gluteus medius/uche interface with the greater trochanter, compatible with partial tear/bursitis. T1 hyperintense signal within the gluteus medius, compatible with atrophy. The nearby proximal iliotibial band also appears intact. The iliopsoas tendon appears intact, without adjacent bursal fluid collections or evidence for impingement syndrome. T2 hyperintense signal is again seen within the hamstring origins with cortical irregularity of the right ischial tuberosity. The straight and reflected heads of the rectus femoris muscle origin appear intact, as well as the conjoint tendon. Soft tissues: Visualized muscles demonstrate normal bulk and internal signal. No joint effusions. No free pelvic fluid. Redemonstrated prolapse appearance of the urinary bladder. The bowel loops appear normal where visualized. IMPRESSION: 1. Sxsm-fc-dytazcnf left greater trochanteric bursitis with partial tear of the gluteus medius/minimus. 2. Atrophy of the left gluteus medius. 3. Redemonstrated bursitis of the hamstring tendons at the origin. 4. Suggestion of small avulsion injury/partial tear at the right hamstring origin. Dictated by: Jt Ayala M.D. on 08/02/2021 at 13:32 Approved by: Jt Ayala M.D. on 08/02/2021 at 13:42
== END ==
PROVIDERS: Family Provider Nurse Practitioner Family; PCP Nurse Practitioner Family; Referring Provider Physical Medicine & Rehabilitation; Visit Provider Physical Medicine & Rehabilitation
DX: M70.61 Trochanteric bursitis, right hip (principal); S76.011A Strain of muscle, fascia and tendon of right hip, initial encounter
CPT/HCPCS: 72195

== ENCOUNTER → 2022-03-28 08:02 | Outpatient (CLI) | payer MEDICARE, OTHER, SELFPAY ==
[2021-01-15 10:05] VITALS: BMI 25.7
--- NOTE | 2022-03-28 | DI.MG.S_ITS ---
BILATERAL DIGITAL SCREENING MAMMOGRAM 3D/2D WITH CAD: 03/28/2022 CLINICAL: Routine screening. Comparison is made to exams dated: 03/20/2021 mammogram, 03/18/2020 mammogram, and 01/07/2019 mammogram - [facility]. There are scattered fibroglandular elements in both breasts. Current study was also evaluated with a Computer Aided Detection (CAD) system. There are benign calcifications in both breasts. There also are benign vascular calcifications in both breasts. No significant masses, calcifications, or other findings are seen in either breast. There has been no significant interval change. IMPRESSION: BENIGN There is no mammographic evidence of malignancy. A 1 year screening mammogram is recommended. Based on the Tyrer Cuzick model (a risk assessment model) the patient's lifetime risk is 2.5% and her 10 year risk is 0.0%. According to the ACR, ACS, and NCCN guidelines, an annual breast MRI exam along with mammogram is recommended if the patient's lifetime risk is 20% or greater. This exam was interpreted at Station ID: [id number]. NOTE: For mammograms, a report in lay terms will be sent to the patient. Approximately 15% of breast malignancies will not be visualized mammographically. In the management of a palpable breast mass, a negative mammogram must not discourage biopsy of a clinically suspicious lesion. Electronically Signed By: Smith bradley/garima:03/28/2022 08:58:23 letter sent: Normal Exam ACR BI-RADS Category 2: Benign Finding(s) 3342F
== END ==
PROVIDERS: Family Provider Nurse Practitioner Family; PCP Nurse Practitioner; Referring Provider Nurse Practitioner; Visit Provider Nurse Practitioner Family
DX: Z12.31 Encounter for screening mammogram for malignant neoplasm of breast (principal)
CPT/HCPCS: 77063; 77067

== ENCOUNTER → 2022-03-28 08:53 | Outpatient (CLI) | payer MEDICARE, OTHER, SELFPAY ==
[2021-01-15 10:05] VITALS: BMI 25.7
[2022-03-28 10:10] LABS: Add Manual Diff / Slide Review NO; Basophils Absolute Auto 0 /uL (0-100); Basophils Percent Auto 0.4 % (0-2); Eosinophils Absolute Auto 100 /uL (0-450); Eosinophils Percent Auto 2.8 % (2-4); Hematocrit 40.2 % (36-46); Hemoglobin 13.6 g/dL (12.0-16.0); Lymphocytes Absolute Auto 900 /uL (1100-4500); Lymphocytes Percent Auto 19.2 % (25-40); Mean Corpuscular HGB Conc 33.8 % (30-36); Mean Corpuscular Hemoglobin 30.7 PG (26-34); Mean Corpuscular Volume 90.9 fL (80-100); Monocytes Absolute Auto 600 /uL (0-900); Monocytes Percent Auto 12.6 % (3-14); Neutrophils Absolute Auto 3200 /uL (1500-7000); Platelet Count 186 X10^3/uL (150-400); Red Blood Cell Count 4.43 X10^6/uL (4.0-5.2); White Blood Cell Count 4.9 X10^3/uL (4.5-11.0)
[2022-03-28 10:19] LABS: Hemoglobin A1C% w Est Avg Glu 6.1 % (4.0-6.0)
[2022-03-28 10:24] LABS: Alanine Aminotransferase 19 IU/L (<35); Albumin 4.2 g/dL (3.5-5.0); Albumin Globulin Ratio 1.6 (1.0-2.8); Alkaline Phosphatase 47 U/L (38-126); Aspartate Aminotransferase 23 IU/L (14-36); BUN Creatinine Ratio 22.1 (6-22); Bilirubin Total 0.6 mg/dL (0.2-1.3); Blood Urea Nitrogen 19 mg/dL (7-17); Calcium 9.1 mg/dL (8.4-10.2); Carbon Dioxide 32 mmol/L (22-32); Chloride 101 mmol/L (98-107); Cholesterol 160 mg/dL (140-199); Estimated Glomerular Filt Rate > 60 mL/min (>60); Globulin 2.6 g/dL (1.7-4.1); Glucose 112 mg/dL (80-110); HDL Cholesterol 44 mg/dL (40-60); HEMOLYSIS < 15 (0-50); LDL Cholesterol Calculated 96 mg/dL (<100); Sodium 137 mmol/L (137-145); Total Protein 6.8 g/dL (6.3-8.2); Triglycerides 100 mg/dL (35-150)
[2022-03-28 10:52] LABS: TSH w/ Reflex to FT4 0.04 uIU/mL (0.47-4.68)
[2022-03-28 11:17] LABS: Free T4, Direct Thyroxine 0.87 ng/dL (0.78-2.19)
== END ==
PROVIDERS: Family Provider Nurse Practitioner Family; PCP Nurse Practitioner; Referring Provider Internal Medicine Cardiovascular Disease; Visit Provider Internal Medicine Cardiovascular Disease
DX: I10 Essential (primary) hypertension (principal); R73.9 Hyperglycemia, unspecified; E78.5 Hyperlipidemia, unspecified; R07.9 Chest pain, unspecified; Z13.29 Encounter for screening for other suspected endocrine disorder
CPT/HCPCS: 36415; 80053; 80061; 83036; 84439; 84443; 85025

== ENCOUNTER → 2022-05-27 10:06 | Outpatient (CLI) | payer MEDICARE, OTHER, SELFPAY ==
[2021-01-15 10:05] VITALS: BMI 25.7
--- NOTE | 2022-05-27 10:07 | DI.US.S_ITS ---
LIMITED ULTRASOUND OF LEFT BREAST AND AXILLA: 05/27/2022 CLINICAL: Focal left breast pain. Comparison is made to exams dated: 03/28/2022 mammogram, 03/20/2021 mammogram, 03/18/2020 mammogram, 01/07/2019 mammogram, 12/20/2017 mammogram, and 11/28/2016 mammogram - [facility]. Color flow ultrasound of the left breast axilla was performed on the areas of interest. Paulson scale images of the real-time examination were reviewed. IMPRESSION: NEGATIVE There is no sonographic evidence of malignancy. There is no sonographic abnormality seen in the left breast to correspond with the pain, however, clinical followup is recommended. Return to annual mammogram screening schedule is recommended. This exam was interpreted at Station ID: [id number]. Electronically Signed By: Ashanti Cavanaugh M.D. lk/:05/27/2022 12:23:08 letter sent: Clinical Evaluation Ultrasound BI-RADS: 1 Negative
== END ==
PROVIDERS: Family Provider Nurse Practitioner Family; PCP Nurse Practitioner; Referring Provider Nurse Practitioner; Visit Provider Nurse Practitioner
DX: N64.4 Mastodynia (principal)
CPT/HCPCS: 76642

== ENCOUNTER → 2023-01-30 09:45 | Outpatient (CLI) | payer MEDICARE, OTHER, SELFPAY ==
[2021-01-15 10:05] VITALS: BMI 25.7
[2023-01-30 10:17] LABS: Add Manual Diff / Slide Review NO; Basophils Absolute Auto 0 /uL (0-100); Basophils Percent Auto 0.5 % (0-2); Eosinophils Absolute Auto 100 /uL (0-450); Eosinophils Percent Auto 2.5 % (2-4); Hematocrit 36.6 % (36-46); Hemoglobin 12.7 g/dL (12.0-16.0); Lymphocytes Absolute Auto 800 /uL (1100-4500); Lymphocytes Percent Auto 18.8 % (25-40); Mean Corpuscular HGB Conc 34.8 % (30-36); Mean Corpuscular Hemoglobin 31.4 PG (26-34); Mean Corpuscular Volume 90.3 fL (80-100); Monocytes Absolute Auto 600 /uL (0-900); Monocytes Percent Auto 13.9 % (3-14); Neutrophils Absolute Auto 2600 /uL (1500-7000); Neutrophils Percent Auto 64.3 % (50-75); Platelet Count 204 X10^3/uL (150-400); Red Blood Cell Count 4.05 X10^6/uL (4.0-5.2); Red Cell Distribution Width 13.3 % (11.6-14.8); White Blood Cell Count 4.1 X10^3/uL (4.5-11.0)
[2023-01-30 10:39] LABS: Alanine Aminotransferase 22 IU/L (<35); Albumin Globulin Ratio 1.4 (1.0-2.8); Alkaline Phosphatase 54 U/L (38-126); Aspartate Aminotransferase 24 IU/L (14-36); BUN Creatinine Ratio 19.5 (6-22); Bilirubin Total 0.6 mg/dL (0.2-1.3); Blood Urea Nitrogen 16 mg/dL (7-17); Calcium 8.8 mg/dL (8.4-10.2); Carbon Dioxide 29 mmol/L (22-32); Chloride 100 mmol/L (98-107); Cholesterol 152 mg/dL (140-199); Estimated Glomerular Filt Rate > 60 mL/min (>60); Globulin 2.8 g/dL (1.7-4.1); Glucose 107 mg/dL (80-110); HDL Cholesterol 42 mg/dL (40-60); HEMOLYSIS < 15 (0-50); LDL Cholesterol Calculated 93 mg/dL (<100); Magnesium 1.8 mg/dL (1.6-2.3); Potassium 4.2 mmol/L (3.4-5.1); Sodium 135 mmol/L (137-145); Total Protein 6.8 g/dL (6.3-8.2); Triglycerides 85 mg/dL (35-150)
[2023-01-30 11:13] LABS: TSH w/ Reflex to FT4 0.05 uIU/mL (0.47-4.68)
[2023-01-31 08:35] LABS: Labcorp Hemoglobin (Hb) A1c 6.2 % (4.8-5.6)
== END ==
PROVIDERS: Family Provider Nurse Practitioner Family; PCP Nurse Practitioner; Referring Provider Internal Medicine Cardiovascular Disease; Visit Provider Internal Medicine Cardiovascular Disease
DX: I10 Essential (primary) hypertension (principal); E78.5 Hyperlipidemia, unspecified; R73.9 Hyperglycemia, unspecified; R00.1 Bradycardia, unspecified
CPT/HCPCS: 36415; 80053; 80061; 83036; 83735; 84443; 85025

== ENCOUNTER → 2023-02-06 09:43 | Outpatient (CLI) | payer MEDICARE, OTHER, SELFPAY ==
[2021-01-15 10:05] VITALS: BMI 25.7
[2023-02-06 12:29] LABS: Free T3, Triiodothyronine Free 3.61 pg/mL (2.77-5.27); Free T4, Direct Thyroxine 1.03 ng/dL (0.78-2.19)
[2023-02-06 12:42] LABS: Thyroid Stimulating Hormone 0.101 uIU/mL (0.47-4.68)
== END ==
PROVIDERS: Family Provider Nurse Practitioner Family; PCP Nurse Practitioner; Referring Provider Internal Medicine Cardiovascular Disease; Visit Provider Internal Medicine Cardiovascular Disease
DX: R00.1 Bradycardia, unspecified (principal)
CPT/HCPCS: 36415; 84439; 84443; 84481

== ENCOUNTER 2023-03-09 12:07 | Day surgery (SDC) | payer MEDICARE, OTHER, SELFPAY ==
[2021-01-15 10:05] VITALS: BMI 25.7
[2023-03-03 09:47] VITALS: BMI 29.0
[2023-03-09 12:38] VITALS: BMI 29.0
--- NOTE | 2023-03-09 13:00 | SUR.PREOP ---
notified of cancellation and called.
== END 2023-03-09 13:00 | disposition home or self-care (01) ==
LOC: OR 12:08 → AC 12:09
PROVIDERS: Family Provider Nurse Practitioner Family; PCP Nurse Practitioner; Referring Provider Obstetrics & Gynecology; Visit Provider Obstetrics & Gynecology

== ENCOUNTER 2023-03-24 06:35 | Day surgery (SDC) | payer MEDICARE, OTHER, SELFPAY ==
[2021-01-15 10:05] VITALS: BMI 25.7
[2023-03-16 12:29] VITALS: BMI 29.0
[2023-03-24] VITALS (9 sets, daily range): BP systolic 111–152; BP diastolic 58–81; PULSE 60–79; RESP 10–18; TEMP 35.8–36.4; O2SAT 90–97; BMI 28.1
--- NOTE | 2023-03-24 | PATH_ITS ---
[facility] Accession Number: [id number] No. of containers..01 Tissue . 01 Material submitted: . uterus - UTERUS, FALLOPIAN TUBES, OVARIES . 01 Diagnosis: Uterus, Cervix, Left and Right Fallopian Tubes and Ovaries, Hysterectomy and Bilateral Salpingo-oophorectomy: Cervix: Atrophic ectocervix and nabothian cysts. Endometrium: Inactive/atrophic. Myometrium: Adenomyosis. Fallopian tubes: Benign paratubal cyst. Ovaries: Postmenopausal changes including corpora albicantia. [facility] 03/29/2023 1713 Local . 01 Electronically signed: . Naila Burgos MD, Pathologist NPI- [id number] . 01 Gross description: . The specimen is received in formalin labeled with the patient's name, , and uterus, fallopian tubes, ovaries, and consists of an intact uterus (60 g, 7.5 cm SI, 5.1 cm ML, 2.5 cm AP) with attached cervix (2.2 x 0.1 cm), left fallopian tube (3.0 x 0.5 cm), left ovary (4 g, 2.5 x 0.8 x 0.8 cm), right fallopian tube (3.0 x 0.7 cm), right ovary (2 g, 1.7 x 0.9 x 0.7 cm). The ectocervix is mendosa and smooth with a circular os measuring 0.3 cm in diameter. The anterior paracervical margin is inked blue white a posterior paracervical margin is inked black. The serosa is mendosa and smooth with no evidence of hemorrhage or adhesion identified. The endocervical canal has mendosa herringbone mucosa and measures 1.9 cm in length. The endometrial cavity measures 2.2 cm from cornu to cornu and 3.6 cm in length with pink-mendosa, velvety endometrium the averages 0.1 cm thick. The myometrium is mendosa and trabecular measuring up to 1.4 cm in greatest dimension with no nodules or lesions grossly identified. The left fallopian tube has mendosa, smooth serosa with no cystic structures identified. Sectioning reveals an unremarkable stellate lumen. The left ovary has a mendosa, cerebriform external surface. Sectioning reveals an unremarkable cut surface. The right fallopian tube has mendosa, smooth serosa with no cystic structures identified. Sectioning reveals and unremarkable stellate lumen. The right ovary has a mendosa, cerebriform external surface. Sectioning reveals an unremarkable cut surface. [facility] [employer] sections are submitted as follows: A1: Anterior cervix. A2: Posterior cervix. A3: Anterior full-thickness section. A4: Posterior full-thickness section. A5: Left fallopian tube to include one-half of bisected fimbriae and cross sections. A6: Left ovary. A7: Right fallopian tube to include one-half of bisected fimbriae and cross sections. A8: Right ovary. ([id number]) /[facility] 03/25/2023 1155 Local . 01 Pathologist provided ICD-10: N81.2 . 01 CPT . 772666 Specimen Comment: A courtesy copy of this report has been sent to [phone] Performed at: 01 [facility] [address] [place] [address], [place], [place] [id number] MD Jacky Clemons MD Phone: [phone]
[2023-03-24] MEDS: LACTATED RINGERS 1,000 ML 42 ML IV ×2 (07:20→09:28)
--- NOTE | 2023-03-24 07:27 | PM.PREOP ---
Pre-operative Note COVID-19 COVID-19 status: Not tested Criteria for continued procedure: Non-surgical alternatives not available or appropriate per current SOC Interval Note History & Physical reviewed/Exam performed by Physician: Yes Changes to H&P: No
--- NOTE | 2023-03-24 07:55 | P.HPOB_ITS ---
History of Present Illness History of Present Illness Reason for admission: pelvic prolapse Narrative: Patient is a 77-year-old para 2 with known uterovaginal prolapse.? She had used a pessary for many years and then had a cystocele repaired in December of 2020.? She has noticed that the cystocele has recurred.? She does not leak urine unless she waits too long to go to the restroom.? She does feel like she has trouble emptying her bladder with starting and stopping frequently when she is trying to empty her bladder.? She has no problems with bowel movements.? She is occasionally sexually active.? No vaginal bleeding.? She would prefer not to go back to using a pessary.? After discussing all options, the patient has decided to move forward with total laparoscopic hysterectomy and bilateral salpingo- oophorectomy, uterosacral ligament suspension of the vaginal vault, and possible anterior colporrhaphy.? She presents today for her scheduled surgery. [facility] Medical History (Updated 03/03/23 @ 10:01 by Beatriz Grewal RN) Bradycardia (04/2021) Colon polyps GERD (gastroesophageal reflux disease) Hyperlipidemia (1999) Hypertension (1999) Intermittent chest pain (12/2020) Irregular heart beat (12/2020) Medicare annual wellness visit, subsequent (05/06/21) Microscopic hematuria Osteopenia PSVT (paroxysmal supraventricular tachycardia) Screening mammogram, encounter for Surgical History (Updated 03/03/23 @ 10:01 by Beatriz Grewal RN) History of bladder suspension procedure History of gynecologic surgery (01/15/21) Hx of bilateral breast reduction surgery (1969) Hx of colonoscopy (1989) Hx of removal of cyst Social History household members: spouse Smoking Status: Never smoker second hand exposure: No alcohol intake: never substance use type: does not use Meds Home Medications and Allergies Home Medications Medication Instructions Recorded Confirmed Type aspirin 81 mg tablet,delayed 81 mg PO DAILY ##0 03/29/11 03/24/23 History release ascorbic acid (vitamin C) 1,000 mg 1 g PO DAILY ##0 10/13/11 03/24/23 History tablet (Vitamin C) cholecalciferol (vitamin D3) 25 1,000 iu PO Q DAY ##0 10/13/11 03/24/23 History mcg (1,000 unit) tablet (Vitamin D3) Probiotic See Rx Instructions .Route .COMPLEX 07/24/19 03/24/23 History ipratropium bromide 42 mcg (0.06 2 spray intranasal TID-QID PRN 01/22/20 03/24/23 Rx %) nasal spray allergy symptoms #15 mL atenolol 25 mg tablet See Rx Instructions .Route 05/06/21 03/24/23 Rx .COMPLEX #90 tabs hydrochlorothiazide 12.5 mg tablet See Rx Instructions .Route 12/27/21 03/24/23 Rx .COMPLEX #90 tabs simvastatin 40 mg tablet See Rx Instructions .Route 05/02/22 03/24/23 Rx .COMPLEX #90 tabs Fish Oil 1 cap PO DAILY 05/18/22 03/24/23 History famotidine 10 mg tablet (Pepcid AC) 10 mg PO BID 02/16/23 03/24/23 History Allergies Allergy/AdvReac Type Severity Reaction Status Date / Time indomethacin [INDOMETHACIN] AdvReac Mild nausea and Verified 03/24/23 07:12 dizziness Review of Systems Review of Systems Narrative: Problem-specific ROS positives included in HPI Exam Vital Signs (past 8 hours): - 03/24/23 07:00 Temperature 96.9 F L Pulse Rate 60 Respiratory Rate 18 Blood Pressure 152/81 H Pulse Oximetry 97 Oxygen Delivery Method Room Air Oxygen Delivery Method Room Air Const General: cooperative and comfortable Nutritional Appearance: average body habitus Orientation: alert and oriented x3 HENMT Head: normal to inspection, atraumatic and abrasion Ears: hearing grossly normal bilaterally Face and sinus: face symmetric Eyes General: appearance normal, both eyes and all related structures Conjunctivae: conjunctivae normal Sclera: sclerae normal EOM: EOM intact bilaterally Neck Neck: normal visual inspection Resp Effort & Inspection: normal respiratory effort and able to speak in complete sentences Auscultation: clear to auscultation bilaterally Cardio Rate: regular rate Rhythm: regular rhythm Heart Sounds: S1 normal, S2 normal and no murmurs GI Inspection: normal to inspection Palpation: soft, no hepatosplenomegaly and No tender External Female Exam: other (See below) Other: External Female Exam: normal external appearance (Normal for age and parity), normal appearance of the urethra and no lesions Urethra: normal appearance of the urethra Speculum Exam - Vagina: normal vaginal discharge, vagina atrophic, no lesions, No vaginal bleeding and other (Longitudinal anterior colporrhaphy scar) Speculum Exam - Cervix: normal appearance of the cervix and cervical os open Bimanual Exam- Vagina & Uterus: normal bimanual exam, uterine size normal, uterine mobility normal and non-tender Bimanual Exam- Adnexa, other: normal adnexae, no masses, non-tender, No enterocele, cystocele (Stage 2-3) and vaginal apex descent (Stage II) Pelvic Support: cystocele (Stage 2-3), no enterocele noted and vaginal apex descent (Stage II) OB/External & Speculum: cervical os open and No vaginal bleeding Speculum Exam: cervical os open and no vaginal bleeding Extrem General: no calf tenderness Psych Appearance: grossly normal Mental Status: mental status grossly normal Speech and Movement: speech and movement normal Mood: congruent mood Affect: normal affect Attitude: cooperative Thought Process: normal Thought Content: normal Judgment: judgment good Assessment & Plan Assessment and plan (1) Cystocele with incomplete uterovaginal prolapse: Status: Acute Plan Patient counseled regarding alternatives, risks, benefits, and potential complications associated with total laparoscopic hysterectomy with bilateral salpingo oophorectomy, uterosacral ligament vault suspension, and possible anterior colporrhaphy. With full understanding of the above, a written consent was executed, signed, and witnessed
[2023-03-24] MEDS: CEFAZOLIN 2 GM/100 ML PREMIX 100 ML IV (08:05)
--- NOTE | 2023-03-24 08:45 | SUR.OPER ---
Lithotomy on padded OR bed, head on pillow, arms secured on padded arm boards at <90 degrees abduction. Legs secured in padded yellow fins stirrups.
[2023-03-24] MEDS: BUPIVACAINE 0.5% (PF) 30 ML, EPINEPHrine 0.15 MG INJ (08:56)
[2023-03-24] MEDS: ROPIVACAINE 0.2% PF 2 MG/ML 20ML AMP 20 ML INJ (11:03)
--- NOTE | 2023-03-24 11:35 | P.OP_ITS ---
Operative Date/Time/Diagnoses Date of procedure: 03/24/23 Time of procedure: 08:15 Pre-op diagnosis: Uterovaginal prolapse Cystocele Post-op diagnosis: same Procedure & Clinicians Procedure: Procedures Operation Date: 03/24/23 07:45 Actual Procedure Side Surgeon p Total Laparoscopic Hysterectomy, bilateral salpingo-oophorectomy w/ uterosacral ligament suspession s Cystoscopy Jack Marin MD Indications: Patient is a 77-year-old para 2 with known uterovaginal prolapse.? She had used a pessary for many years and then had a cystocele repaired in December of 2020.? She has noticed that the cystocele has recurred.? She does not leak urine unless she waits too long to go to the restroom.? She does feel like she has trouble emptying her bladder with starting and stopping frequently when she is trying to empty her bladder.? She has no problems with bowel movements.? She is occasionally sexually active.? No vaginal bleeding.? She would prefer not to go back to using a pessary.? After discussing all options, the patient has decided to move forward with total laparoscopic hysterectomy and bilateral salpingo-o ophorectomy, uterosacral ligament suspension of the vaginal vault, and possible anterior colporrhaphy.? She presents today for her scheduled surgery. Surgeon: Jack Marin Cocoa Bean Roaster: Annabella Watson Anesthesia Type: General Operative Notes Closure Type: primary Specimen(s): left tube, right tube and uterus Applied: catheter Blood products transfused: none Procedure in detail: With the patient in modified dorsal lithotomy position preparations were made by prepping and draping the patient in usual manner for vaginal surgery and insertion of Siddiqui catheter. A pre-surgical time-out was then taken in accordance with [facility] Main OR policy. A bivalve speculum was then placed in the vagina and the cervix visualized. The anterior lip of the cervix was then grasped with a single-tooth tenaculum. The uterus was sounded to 7 cm, the endocervical canal dilated slightly, and a VCare uterine manipulator with a small colpotomy cup was placed. The umbilicus was then infiltrated with 0.5% Marcaine with epinephrine. A 1 cm umbilical incision was made transversely and a Veress needle was used to insufflate the abdominal cavity with carbon dioxide. Once the abdomen was appropriately insufflated, a 5 mm trocar and sleeve were then placed through the umbilical incision. The scope was placed through the trocar and the initial assessment of the intra-abdominal contents carried out. A 2nd and 3rd 5 mm port was then placed 1st in the right mid quadrant from then the left mid quadrant by infiltration of the skin and subcutaneous tissues, a 1 cm transverse incision and insertion of the 5 mm bladeless port. Using a 3 puncture technique, the abdomen and pelvis were inspected laparoscopy and photographically documented. Uterus is mobilized with the VCare manipulator and attention turned to the left adnexa. The distal tube was then grasped and the infundibulopelvic ligament was divided after coagulation with the PowerSeal device. The dissection was then carried out across the mesosalpinx and then carried down using the PowerSeal device so as to divide the the round ligament with blunt and sharp dissection of the broad down to the level of the uterine artery. The uterine artery was then skeletonized after development of a bladder flap, coagulated, and divided. Once hemostasis was assured on the left side attention was turned to the right adnexa. The distal fallopian tube was elevated with a grasping forceps and the infundibulopelvic ligament coagulated and divided with a power Seal device. The dissection was then carried across the mesosalpinx to the round ligament and then down the lateral aspect of the uterus on the right side. Once the level of the endocervical canal was skeletonized, bladder flap was completed, the bladder advanced, and the ascending uterine vessels on the right side were coagulated and divided with the PowerSeal. The uterus was seen to [place] after coagulation of both your arteries and the cup was identified through the vaginal muscularis at its insertion with the body of the cervix. Circumferential excision of the vaginal cup was accomplished without difficulty using monopolar current and the uterus mobilized. The uterus was then removed through the vagina and the vaginal cuff closed [id number] with a series of 0 Vicryl [id number] stitches. Hemostasis was excellent, the abdomen was re-insufflated, and the pelvis inspected laparoscopically. A 4th 5 mm port was then placed deep in the right lower quadrant and the vaginal cuff elevated with an EEA Sizer. Using 0 E thibond suture, the uterosacral ligaments on each side were connected to the vaginal cuff using 2 stitches on both the right and left side with excellent elevation of the cuff itself. The pelvis was inspected for any abnormality or bleeding, and the ureters were each seen to be peristalsing freely. Cystoscopy was then performed with no evidence of injury to the bladder and vigorous streams of clear urine coming from each ureteral meatus. The pelvis was again inspected laparoscopically, 20 cc of ropivacaine instilled in the posterior cul-de-sac, and with complete hemostasis assured, the pneumoperitoneum was vented and the ports removed. All of the 5 mm ports were then closed with 4-0 Monocryl on the skin using inverted interrupted sutures. Skin glue was placed and after the glue was dried, an appropriate dressing was applied. The case was then terminated, the patient awakened, and then transferred to PACU after having tolerated the procedure well. Complications: none Post-operative Condition: stable Disposition: PACU Plan for aftercare: Recovery in ambulatory surgery in discharge home later today or in AM if pain is under control and she is tolerating oral intake well.
[2023-03-24] MEDS: OXYCODONE IR 5 MG TABLET PO ×2 (12:30→17:45)
[2023-03-24] MEDS: KETOROLAC 30 MG/ML VIAL IV ×2 (13:05→17:46)
--- NOTE | 2023-03-24 14:46 | PC.NURSE ---
Addendum entered by Remedios Rogers R.N. 03/24/23 18:44: Rash that is red and slightly raised noted on pt's abdomen at 1730. Pt had 2 heating pads where it was red. Removed heating pads and reassessed in 20 min. Skin is still red and patchy. Pt denies any itching or discomfort. Told pt it was likely due to iodine or chlorehexidine they used in OR. Let charge nurse know and let night RN know to continue to monitor. Original Note: Day shift: Pt admitted to floor from PACU at 1207pm. Pt reporting severe pain in lower abdomen. Given PO oxycodone and IV ketorolac per MD orders. Given heating pad for cramping pain. 4 laprascopic dressings on abdomen - all C/D/I. Pt slept for 2.5 hours after coming up to the floor. Arousable to voice. No nausea/vomiting. Pt tolerating general diet. Siddiqui cathetar in place. SCDs on. Pt's spouse, Chalino, at bedside. Will continue to monitor.
[2023-03-24] MEDS: ACETAMINOPHEN 325 MG TABLET 650 MG PO ×2 (15:46→21:37)
[2023-03-24] MEDS: DOCUSATE 100 MG CAPSULE 200 MG PO (21:36)
[2023-03-25] MEDS: KETOROLAC 30 MG/ML VIAL IV ×2 (00:17→05:39)
[2023-03-25 00:59] VITALS: BP 119/62; PULSE 72; RESP 16; TEMP 36.1; O2SAT 95
[2023-03-25 04:45] VITALS: BP 124/65; PULSE 71; RESP 16; TEMP 36.4; O2SAT 95
--- NOTE | 2023-03-25 05:53 | PC.NURSE ---
Parachute Packer Removed indwelling catheter. Pt tolerated without complaint. Call light left within reach. Pt educated on using call light to notify staff when she feels the need to void. Pt verbalized understanding, all questions answered. Pt denied any pain.
[2023-03-25 06:22] LABS: Add Manual Diff / Slide Review NO; Basophils Absolute Auto 0 /uL (0-100); Basophils Percent Auto 0.1 % (0-2); Eosinophils Absolute Auto 0 /uL (0-450); Hematocrit 33.7 % (36-46); Hemoglobin 11.5 g/dL (12.0-16.0); Lymphocytes Absolute Auto 1000 /uL (1100-4500); Lymphocytes Percent Auto 6.9 % (25-40); Mean Corpuscular Hemoglobin 31.2 PG (26-34); Mean Corpuscular Volume 91.7 fL (80-100); Monocytes Absolute Auto 1300 /uL (0-900); Monocytes Percent Auto 8.5 % (3-14); Neutrophils Absolute Auto 12600 /uL (1500-7000); Neutrophils Percent Auto 84.5 % (50-75); Platelet Count 178 X10^3/uL (150-400); Red Blood Cell Count 3.67 X10^6/uL (4.0-5.2); Red Cell Distribution Width 14.3 % (11.6-14.8); White Blood Cell Count 14.9 X10^3/uL (4.5-11.0)
[2023-03-25 08:00] VITALS: BP 117/59; PULSE 66; RESP 16; TEMP 36.6; O2SAT 99
[2023-03-25] MEDS: DOCUSATE 100 MG CAPSULE 200 MG PO (08:58)
[2023-03-25] MEDS: atenoloL 25 MG TABLET 12.5 MG PO (08:59)
[2023-03-25] MEDS: FAMOTIDINE 20 MG TABLET 10 MG PO (08:59)
[2023-03-25] MEDS: ACETAMINOPHEN 325 MG TABLET 650 MG PO (09:00)
--- NOTE | 2023-03-25 09:26 | P.DS_ITS ---
History of Present Illness History of Present Illness Date Patient Seen: 03/25/23 Time Patient Seen: 09:26 Chief complaint: Uterovaginal prolapse with cystocele Narrative: Patient is a 77-year-old para 2 with known uterovaginal prolapse.? She had used a pessary for many years and then had a cystocele repaired in December of 2020.? She has noticed that the cystocele has recurred.? She does not leak urine unless she waits too long to go to the restroom.? She does feel like she has trouble emptying her bladder with starting and stopping frequently when she is trying to empty her bladder.? She has no problems with bowel movements.? She is occasionally sexually active.? No vaginal bleeding.? She would prefer not to go back to using a pessary.? After discussing all options, the patient has decided to move forward with total laparoscopic hysterectomy and bilateral salpingo- oophorectomy, uterosacral ligament suspension of the vaginal vault, and possible anterior colporrhaphy.? She presents today for her scheduled surgery. Discharge Providers Provider Date of admission: 03/24/2023 Discharge Date: 03/25/23 Primary care physician: EMI Frazier Discharge provider: Jack Marin MD Summary Hospital Course Discharge Diagnosis: Uterovaginal prolapse with cystocele Status post total laparoscopic hysterectomy with bilateral salpingo oophorectomy and uterosacral vault suspension and cystoscopy Hospital Course: Christen was admitted on the morning of 03/24/2023 and underwent an uneventful total laparoscopic hysterectomy with bilateral salpingo oophorectomy and cystoscopy that morning. Details of the procedure well summarized on my operative note that date. Following surgery the patient has done extremely well with prompt return of bowel and bladder function, she is ambulating independently, tolerating a regular diet, and her pain is well relieved with oral pain medications. She will be discharged at this time to home in an afebrile normotensive condition after counseling regarding precautionary symptoms, limitations of activity, medications, and plans for follow-up which will be in 2 weeks. Medications at discharge will include resumption of all preadmission medications and oxycodone 5 mg p.o. q.6 hours as needed pain, dispense 10 with no refills, and Cipro 500 mg p.o. b.i.d. x5 days for UTI prophylaxis following cystoscopy and catheterization. Status at Discharge Cognitive/behavioral status at discharge: oriented Functional status at discharge: independent ambulation Overall status at discharge: patient is progressing back to baseline Time Spent with Patient Time spent: Less than 30 minutes Exam Vital Signs (past 8 hours): - 03/25/23 04:45 03/25/23 08:00 Temperature 97.5 F L 97.9 F Pulse Rate 71 66 Respiratory Rate 16 16 Blood Pressure 124/65 117/59 L Pulse Oximetry 95 99 Oxygen Flow Rate 1 1 Oxygen Delivery Method Nasal Cannula Oxygen Flow Rate 1 Const General: cooperative and comfortable Nutritional Appearance: average body habitus Orientation: alert and oriented x3 HENMT Head: normal to inspection, atraumatic and abrasion Ears: hearing grossly normal bilaterally Face and sinus: face symmetric Eyes General: appearance normal, both eyes and all related structures Conjunctivae: conjunctivae normal Sclera: sclerae normal EOM: EOM intact bilaterally Neck Neck: normal visual inspection Resp Effort & Inspection: normal respiratory effort and able to speak in complete sentences Auscultation: clear to auscultation bilaterally Cardio Rate: regular rate Rhythm: regular rhythm Heart Sounds: S1 normal, S2 normal and no murmurs GI Inspection: normal to inspection, incision (Surgical dressings clean and dry) and other (Scattered erythema and 2 blisters from hot pack applied to abdomen postop) Palpation: soft, no hepatosplenomegaly and tender (Mild, diffuse postsurgical t enderness) External Female Exam: other (No significant bleeding noted) Extrem General: no calf tenderness Psych Appearance: grossly normal Mental Status: mental status grossly normal Speech and Movement: speech and movement normal Mood: congruent mood Affect: normal affect Attitude: cooperative Thought Process: normal Thought Content: normal Judgment: judgment good Objective Labs 03/25/23 05:35 Labs: Laboratory Results - last 24 hr 03/25/23 05:35 WBC 14.9 H RBC 3.67 L Hgb 11.5 L Hct 33.7 L MCV 91.7 MCH 31.2 MCHC 34.0 RDW 14.3 Plt Count 178 Neut % (Auto) 84.5 H Lymph % (Auto) 6.9 L [place] % (Auto) 8.5 Eos % (Auto) 0.0 L Baso % (Auto) 0.1 Neut # (Auto) 75993 H Lymph # (Auto) 1000 L [place] # (Auto) 1300 H Eos # (Auto) 0 Baso # (Auto) 0 PFSH Medical History (Updated 03/03/23 @ 10:01 by Beatriz Grewal RN) Bradycardia (04/2021) Colon polyps GERD (gastroesophageal reflux disease) Hyperlipidemia (1999) Hypertension (1999) Intermittent chest pain (12/2020) Irregular heart beat (12/2020) Medicare annual wellness visit, subsequent (05/06/21) Microscopic hematuria Osteopenia PSVT (paroxysmal supraventricular tachycardia) Screening mammogram, encounter for Surgical History (Updated 03/03/23 @ 10:01 by Beatriz Grewal RN) History of bladder suspension procedure History of gynecologic surgery (01/15/21) Hx of bilateral breast reduction surgery (1969) Hx of colonoscopy (1989) Hx of removal of cyst Social History household members: spouse Smoking Status: Never smoker second hand exposure: No alcohol intake: never substance use type: does not use Discharge Assessment & Plan Assessment and Plan Assessment: Uterovaginal prolapse with cystocele Status post total laparoscopic hysterectomy with bilateral salpingo oophorectomy and laparoscopic uterosacral vault suspension, cystoscopy Plan of Treatment: Routine postoperative care Avoid any activities which will place additional strain on the pelvic floor times 12 week Patient will keep Band-Aids and antibiotic ointment on the areas of abdominal wall blistering until healed Discharge Plan Discharge Plan Patient Disposition: Home Provider Discharge Comment: Please review the written instructions you received when you were discharged from the hospital. Your follow-up appointment will be scheduled for 2 weeks after your surgery and I look forward to seeing you then. If however in the meanwhile you have any issues, concerns, or questions, please contact me either through the office phone at [phone], or via the patient portal. Discharge orders & Medications Discharge Orders: Discharge (Order); Ordered 03/25/23 Ordered By: Jack Marin Prescriptions: New oxycodone 5 mg Tablet 5 mg PO Q4HR PRN (Reason: Pain, Moderate (4-6)) Qty: 10 0RF ciprofloxacin HCl [Cipro] 500 mg tablet 500 mg PO BID 5 Days Qty: 10 0RF Continued aspirin 81 mg Tablet,Delayed Release (Dr/Ec) 81 mg PO DAILY Qty: 0 ascorbic acid (vitamin C) [Vitamin C] 1,000 mg Tablet 1 g PO DAILY Qty: 0 cholecalciferol (vitamin D3) [Vitamin D3] 1,000 UNIT tablet 1,000 iu PO Q DAY Qty: 0 ipratropium bromide 42 mcg (0.06 %) spray,non-aerosol 2 spray NASAL TID-QID PRN (Reason: allergy symptoms) Qty: 15 0RF Rx Instructions: administer into each nostril hydrochlorothiazide 12.5 mg tablet See Rx Instructions .ROUTE .COMPLEX Qty: 90 3RF Dose Instruction: TAKE 1 TABLET DAILY Rx Instructions: TAKE 1 TABLET DAILY simvastatin 40 mg tablet See Rx Instructions .ROUTE .COMPLEX Qty: 90 0RF Dose Instruction: TAKE 1 TABLET AT BEDTIME Rx Instructions: TAKE 1 TABLET AT BEDTIME famotidine [Pepcid AC] 10 mg tablet 10 mg PO BID Probiotic See Rx Instructions .ROUTE .COMPLEX Rx Instructions: 1 CAP PO DAILY atenolol 25 mg tablet See Rx Instructions .ROUTE .COMPLEX Qty: 90 1RF Dose Instruction: TAKE 1 TABLET DAILY Rx Instructions: TAKE 1/2 TABLET DAILY Fish Oil 2,000 mg 1 cap PO DAILY Follow up/Referrals: Kahterine Melchor ARNP [Primary Care Provider] - Jack Marin MD [Physician] - Diet/Activity/Treatments Diet: Diet as Tolerated Activity: As tolerated. Lift nothing heavier than a gallon of milk for 12 weeks following surgery. Minimize squatting, straining, or any other activity that would increase the pressure on the pelvic muscles for 12 weeks. Other treatments: [id number] Tylenol and/or ibuprofen may be used for additional pain relief. Wqms-huk-qdecmae stool softeners should be used twice daily and MiraLax may be used as well if constipation occurs. Skin/Wound/Dressing Care Report to your healthcare provider any signs of infection, such as:: chills, fever, increased pain, unusual drainage and unusual redness Dressing: Dressing should be removed on the morning of 03/26/2023. Other wound treatment: Keep a Band-Aid and antibiotic cream or ointment on the small blisters of the abdominal skin until they are healed. Visit Report/Discharge Packet Instructions: DI for Hysterectomy, DI for Laparoscopy Stand Alone Forms: Surgery Discharge Discharge Data Primary Care Provider: Katherine Melchor Attending Provider: Jack Marin Quality VTE Deep Vein Thrombosis/Pulmonary Embolism Present on Admission: No
--- NOTE | 2023-03-25 10:17 | CM.DANOTE ---
DCP Brief Assessment: Patient is a 78 yo F here under [facility] status following a planned pelvic surgery with Dr. Marin on 03/24/23. PCP: Katherine Melchor Payer: Medicare and [employer]. GRID INSPECTOR reviewed EMR. From nursing, likely home with no needs. GRID INSPECTOR entered room and introduced self and role. Patient was resting in bed and appeared A/Ox4. Patient was accompanied by spouse, Chalino ([phone]). Patient reported feeling good and excited to go home. Patient reported being up and showering and mobile. Patient drives but spouse will drive her home from hospital. GRID INSPECTOR kept assessment brief due to triage needs and likely lack of need from this team. Plan: patient will d/c home with spouse in POV. CM team will continue to follow as necessary. RICA Alejo Discharge Planning/Care Management CM Discharge Assessment Start: 03/25/23 10:16 Freq: Status: Active Protocol: Document 03/25/23 10:17 (Rec: 03/25/23 10:17 [id number]) Discharge Planning Assessment Assigned Metallurgical Specialist RICA Calderon DPOA/Assigned Designee Name Chalino Payne (spouse) Contact Information [phone] Advance Directives? Yes Advance Directives on File No History Provided By Patient Prior Living Arrangements House Household Members spouse Type of transporation used prior to Drives own vehicle admit Independent with ADL's Yes Discharge Plan Home Whiteboard Updated in Patient Room with Yes name and ext. # of Metallurgical Specialist Review Status In Process Next Review Type Continued Stay Review Pre-Anesthesia Assessment Start: 03/16/23 12:29 Freq: Status: Complete Protocol: Document 03/16/23 12:29 CAB (Rec: 03/16/23 12:32 [facility] [id number]) Pre-Anesthesia Assessment Preferred Name Beatriz Patient Information Reviewed Via Chart Review Primary Care Provider Katherine Melchor Seen Specialist in Last 12 Months Yes Specialist Seen Prop Cutter,Synthetic Soil Blocks Pulper, Life Skills Coach Primary Language Swazi Preferred Language [facility] Executive Director Required No Height 160.02 cm Weight 74.389 kg Body Mass Index (BMI) 29.0 Hx Anesthesia Reactions No Hx Family Anesthesia Reaction No Hx Malignant Hyperthermia No Hx Blood Transfusion Reaction No Anesthesia Review Requested No Roving Court Reporter No alcohol intake never Smoking Status Never smoker Substance Use Type does not use Patient is completely paralyzed or No completely immobile Mental Status Oriented to own ability Is patient on oxygen? No Hx Sleep Apnea No CPAP/BIPAP use not prescribed Currently Taking a Beta Louise Yes: Atenolol Hx Chest Pain Yes: Atypical, stress test, echo show no ischemia Anti-Coagulant Therapy No Has a Prop Cutter Yes: Pre-op visit 02/06/[address] Garcia @ [facility] Cardiac Testing No Hx Pacemaker/ICD No Pacemaker Rep Required? No Comment Cardiac records scanned Additional comment Pt walks 3 miles/day without symptoms Urinary Catheter Present No Hx Urinary Self Catheterization No Diabetes No Patient No Lactating No Presence of External or Internal Medical No Devices Received a COVID vaccine? Yes Marital Status Lives With spouse Patient Discharge Plan Description Return Home Do You Have Any Spiritual Beliefs That No May Affect Your HC Choices? Do You Have Any Cultural Practices That No May Affect Your HC Choices? Health Care Proxy/Next of Kin Chalino Danielner- Health Care Proxy Emergency Contact Name Chalino Elmer- Emergency Contact Advance Directives? Yes Power of Database Design Analyst Yes Power of Database Design Analyst Name Chalino Payne Power of Database Design Analyst
== END 2023-03-25 10:25 | disposition home or self-care (01) ==
LOC: OR 06:36 → AC 06:37
PROVIDERS: Family Provider Nurse Practitioner Family; PCP Nurse Practitioner; Referring Provider Obstetrics & Gynecology; Visit Provider Obstetrics & Gynecology
PROC: 0UT94ZZ Resection of Uterus, Percutaneous Endoscopic Approach (ICD-10-PCS; CPT 58571; principal; 2023-03-24 07:45)
DX: N81.4 Uterovaginal prolapse, unspecified (principal); I10 Essential (primary) hypertension; E78.5 Hyperlipidemia, unspecified
CPT/HCPCS: 58571; 36415; 85025; A9270; J0171; J0690; J1100; J1885; J2405; J2704; J2795; J3010

== ENCOUNTER 2023-03-27 01:57 | Emergency (ER) | payer MEDICARE, OTHER, SELFPAY ==
[2023-03-24 14:23] VITALS: BMI 28.1
[2023-03-27] VITALS (8 sets, daily range): BP systolic 134–181; BP diastolic 60–85; PULSE 77–85; RESP 16; TEMP 36.9; O2SAT 93–98; BMI 27.4
--- NOTE | 2023-03-27 02:08 | ED_ITS ---
HPI - General Adult General Chief complaint: Abdominal Pain Stated complaint: bowel blockage from surgery Time Seen by Provider: 03/27/23 02:02 Source: patient Mode of arrival: Ambulatory Limitations: no limitations History of Present Illness HPI narrative: Patient is a 78-year-old female who last Hank underwent a total hysterectomy and other urologic procedures done by the results technician. She states that she fe els like the procedure went well. Her pain has been improving but not completely gone. She states she has been on pain medicine until yesterday. States she had a small hard painful bowel movement yesterday. She is having nausea and lower abdominal discomfort. She is concerned that maybe she has a bowel blockage. She is never had a bowel obstruction in the past. She did try 1 dose of MiraLax without improvement. No urinary symptoms. Related Data Home Medications Medication Instructions Recorded Confirmed aspirin 81 mg tablet,delayed 81 mg PO DAILY ##0 03/29/11 03/24/23 release ascorbic acid (vitamin C) 1,000 mg 1 g PO DAILY ##0 10/13/11 03/24/23 tablet (Vitamin C) cholecalciferol (vitamin D3) 25 1,000 iu PO Q DAY ##0 10/13/11 03/24/23 mcg (1,000 unit) tablet (Vitamin D3) Probiotic See Rx Instructions .Route .COMPLEX 07/24/19 03/24/23 Fish Oil 1 cap PO DAILY 05/18/22 03/24/23 famotidine 10 mg tablet (Pepcid AC) 10 mg PO BID 02/16/23 03/24/23 Previous Rx's Medication Instructions Recorded ipratropium bromide 42 mcg (0.06 2 spray intranasal TID-QID PRN 01/21/ %) nasal spray allergy symptoms #15 mL atenolol 25 mg tablet See Rx Instructions .Route 05/06/21 .COMPLEX #90 tabs hydrochlorothiazide 12.5 mg tablet See Rx Instructions .Route 12/27/21 .COMPLEX #90 tabs simvastatin 40 mg tablet See Rx Instructions .Route 05/02/22 .COMPLEX #90 tabs ciprofloxacin HCl 500 mg tablet 500 mg PO BID 5 days #10 tabs 03/25/23 (Cipro) oxycodone 5 mg tablet 5 mg PO Q4HR PRN Pain, Moderate 03/25/23 (4-6) #10 tabs Allergies Allergy/AdvReac Type Severity Reaction Status Date / Time indomethacin [INDOMETHACIN] AdvReac Mild nausea and Verified 03/24/23 07:12 dizziness Review of Systems Review of Systems ROS Unobtainable: All systems reviewed & are unremarkable except as noted in HPI and below Patient History Medical History Bradycardia (04/2021) Colon polyps GERD (gastroesophageal reflux disease) Hyperlipidemia (1999) Hypertension (1999) Intermittent chest pain (12/2020) Irregular heart beat (12/2020) Medicare annual wellness visit, subsequent (05/06/21) Microscopic hematuria Osteopenia PSVT (paroxysmal supraventricular tachycardia) Screening mammogram, encounter for Surgical History (Updated 03/03/23 @ 10:01 by Beatriz Grewal RN) History of bladder suspension procedure History of gynecologic surgery (01/15/21) Hx of bilateral breast reduction surgery (1969) Hx of colonoscopy (1989) Hx of removal of cyst Social History household members: spouse Smoking Status: Never smoker second hand exposure: No alcohol intake: never substance use type: does not use Smoking Status: Never smoker Substance Use Type: does not use Exam Initial Vital Signs Initial Vital Signs: Vital Signs Pulse Rate 85 03/27/23 02:04 Pulse Oximetry 96 03/27/23 02:04 Const General: cooperative, comfortable and No ill appearing HENMT Head: normal to inspection and normocephalic Resp Effort & Inspection: normal respiratory effort Cardio Rate: regular rate GI Inspection: normal to inspection and non-distended Palpation: tender Skin General: no rashes or lesions noted Neuro General: patient alert, patient awake and moves all extremities Course Orders Ordered: ED Orders 03/27/23 02:09 CT abdomen pelvis w con Stat 03/27/23 02:15 Basic Metabolic Panel Stat Complete Blood Count AUTO DIFF Stat Vital Signs Vital signs: Vital Signs - 8 hr 03/27/23 02:06 03/27/23 02:04 03/27/23 02:30 Temperature 98.4 F Pulse Rate 83 85 Respiratory Rate 16 Blood Pressure 181/85 H 134/60 Pulse Oximetry 98 96 Oxygen Delivery Method Room Air 03/27/23 02:30 03/27/23 03:00 03/27/23 03:00 Temperature Pulse Rate 78 78 Respiratory Rate Blood Pressure 134/66 Pulse Oximetry 93 94 Oxygen Delivery Method Medical Decision Making Lab Data Lab results reviewed: Yes I reviewed the patient's lab results. 03/27/23 02:15 03/27/23 02:15 Labs: Lab Results 03/27/23 03/27/23 Range/Units 02:15 02:15 WBC 13.7 H (4.5-11.0) X10^3/uL RBC 4.06 (4.0-5.2) X10^6/uL Hgb 12.7 (12.0-16.0) g/dL Hct 37.3 (36-46) % MCV 91.8 (80-100) fL MCH 31.3 (26-34) PG MCHC 34.1 (30-36) % RDW 14.2 (11.6-14.8) % Plt Count 196 (150-400) X10^3/uL Neut % (Auto) 82.1 H (50-75) % Lymph % (Auto) 6.5 L (25-40) % Meeker % (Auto) 10.2 (3-14) % Eos % (Auto) 0.3 L (2-4) % Baso % (Auto) 0.9 (0-2) % Neut # (Auto) 89904 H (9973-4389) /uL Lymph # (Auto) 900 L (5487-9685) /uL Meeker # (Auto) 1400 H (0-900) /uL Eos # (Auto) 0 (0-450) /uL Baso # (Auto) 100 (0-100) /uL Sodium 134 L (137-145) mmol/L Potassium 3.8 (3.4-5.1) mmol/L Chloride 100 (98-107) mmol/L Carbon Dioxide 29 (22-32) mmol/L BUN 11 (7-17) mg/dL Creatinine 0.78 (0.52-1.04) mg/dL Estimated GFR > 60 (>60) mL/min BUN/Creatinine Ratio 14.1 (6-22) Glucose 140 H (80-110) mg/dL Calcium 8.6 (8.4-10.2) mg/dL Imaging Data CT scan - abdomen/pelvis: Radiologist's Impression: No evidence of colitis diverticulitis bowel obstruction or obstructive uropathy or acute appendicitis Gas within the nondependent portion of the bladder and subcutaneous emphysema within the ventral abdomen and pelvis likely related to recent bladder surgery MDM Narrative Medical decision making narrative: Patient has a benign abdominal exam. The CT scan does not show any signs of an overt bowel obstruction. I do suspect given her recent abdominal surgery and her history with the hard bowel movements that she most likely is constipated. No indication for acute surgical intervention. We did discuss the use of laxatives at home. No indication for admission to the hospital. She was given return precautions and follow-up instructions she expressed understanding and agreement. Discharge Plan Departure Patient Disposition: Home Clinical Impression: Constipation Instructions: DI for Constipation Activity Restrictions/Additional Instructions: I recommend that you follow all of the postoperative instructions given to you by the advanced practice registered nurse surgeon. Also recommend that you continue taking the MiraLax like we discussed. Return to the emergency department for new or worsening symptoms. Prescriptions: No Action aspirin 81 mg Tablet,Delayed Release (Dr/Ec) 81 mg PO DAILY Qty: 0 ascorbic acid (vitamin C) [Vitamin C] 1,000 mg Tablet 1 g PO DAILY Qty: 0 cholecalciferol (vitamin D3) [Vitamin D3] 1,000 UNIT tablet 1,000 iu PO Q DAY Qty: 0 ipratropium bromide 42 mcg (0.06 %) spray,non-aerosol 2 spray NASAL TID-QID PRN (Reason: allergy symptoms) Qty: 15 0RF Rx Instructions: administer into each nostril hydrochlorothiazide 12.5 mg tablet See Rx Instructions .ROUTE .COMPLEX Qty: 90 3RF Dose Instruction: TAKE 1 TABLET DAILY Rx Instructions: TAKE 1 TABLET DAILY simvastatin 40 mg tablet See Rx Instructions .ROUTE .COMPLEX Qty: 90 0RF Dose Instruction: TAKE 1 TABLET AT BEDTIME Rx Instructions: TAKE 1 TABLET AT BEDTIME famotidine [Pepcid AC] 10 mg tablet 10 mg PO BID Probiotic See Rx Instructions .ROUTE .COMPLEX Rx Instructions: 1 CAP PO DAILY atenolol 25 mg tablet See Rx Instructions .ROUTE .COMPLEX Qty: 90 1RF Dose Instruction: TAKE 1 TABLET DAILY Rx Instructions: TAKE 1/2 TABLET DAILY Fish Oil 2,000 mg 1 cap PO DAILY oxycodone 5 mg Tablet 5 mg PO Q4HR PRN (Reason: Pain, Moderate (4-6)) Qty: 10 0RF ciprofloxacin HCl [Cipro] 500 mg tablet 500 mg PO BID 5 Days Qty: 10 0RF Referrals: Katherine Melchor ARNP [Primary Care Provider] - Stand Alone Forms: Patient Portal/API
--- NOTE | 2023-03-27 02:09 | DI.CT.S_ITS ---
PROCEDURE: CT ABDOMEN PELVIS W CON INDICATIONS: Potential bowel obstruction TECHNIQUE: After the administration of IV contrast, axial sections were acquired from the lung bases to the pubic symphysis. Coronal and sagittal reformats were performed. For radiation dose reduction, the following was used: automated exposure control, adjustment of mA and/or kV according to patient size. COMPARISON: None. FINDINGS: Image quality: Excellent. Lung bases: Bibasilar atelectasis. No pleural effusion. Heart: No significant findings. ABDOMEN: Liver: Small hypodensity in the right lobe of the liver which has the appearance of a benign cyst. Gallbladder: Within normal limits. Biliary ducts: Not dilated. Pancreas: No peripancreatic fluid collection. Spleen: No splenomegaly. Adrenal Glands: Left adrenal nodule measuring 1.7 cm, (2). Measures 87 Hounsfield units. Kidneys and Ureters: No hydronephrosis. No solid renal mass. Simple right renal cyst measuring 4.4 cm. Stomach and Bowel: Small volume of stool in the rectum. Segment of the sigmoid colon which is decompressed with mild surrounding fat stranding, (2). This is located just posterior to the bladder. Other portions of the colon are normal in appearance. The appendix is not dilated. No small bowel obstruction. Stomach is not distended. Peritoneum: No gross ascites. No free air. Ventral Wall: No hernia. There is a subcutaneous emphysema, left greater than right tracking along mostly the abdominal wall. Abdominal Nodes: No retroperitoneal or mesenteric adenopathy by size criteria. Vessels: Aorta and inferior vena cava are normal in size. Circumferential calcified atherosclerotic plaque. PELVIS: Pelvic Organs: Trace free fluid adjacent to the left seminal vesicle, (2). Bladder: Bladder is only partially distended. There is a small amount of gas in the urinary bladder. No bladder stone. Pelvic Nodes: No enlarged lymph nodes. Miscellaneous: No inguinal hernias are seen. Small area of skin thickening at the right paramedian pannus. Bones: No suspicious lesion. IMPRESSION: 1. Minuscule low-density free fluid adjacent to the left bladder. Mild adjacent stranding. Small volume of gas in the partially distended urinary bladder. These findings are most likely postsurgical in nature. 2. The adjacent sigmoid colon is decompressed with a mild adjacent fat stranding. These findings could be secondary reactive. No loculated fluid collection. 3. Subcutaneous emphysema tracking along the abdominal ramirez. 4. No pneumoperitoneum. No small bowel obstruction. 5. No hydronephrosis. This report is concordant with the overnight preliminary interpretation. Dictated by: Doni Collado M.D. on 03/27/2023 at 8:44 Approved by: Doni Collado M.D. on 03/27/2023 at 8:57
[2023-03-27 02:25] LABS: Add Manual Diff / Slide Review NO; Basophils Absolute Auto 100 /uL (0-100); Basophils Percent Auto 0.9 % (0-2); Eosinophils Absolute Auto 0 /uL (0-450); Eosinophils Percent Auto 0.3 % (2-4); Hematocrit 37.3 % (36-46); Hemoglobin 12.7 g/dL (12.0-16.0); Lymphocytes Absolute Auto 900 /uL (1100-4500); Lymphocytes Percent Auto 6.5 % (25-40); Mean Corpuscular HGB Conc 34.1 % (30-36); Mean Corpuscular Hemoglobin 31.3 PG (26-34); Mean Corpuscular Volume 91.8 fL (80-100); Monocytes Absolute Auto 1400 /uL (0-900); Monocytes Percent Auto 10.2 % (3-14); Neutrophils Absolute Auto 11200 /uL (1500-7000); Neutrophils Percent Auto 82.1 % (50-75); Platelet Count 196 X10^3/uL (150-400); Red Blood Cell Count 4.06 X10^6/uL (4.0-5.2); Red Cell Distribution Width 14.2 % (11.6-14.8); White Blood Cell Count 13.7 X10^3/uL (4.5-11.0)
[2023-03-27 02:36] LABS: BUN Creatinine Ratio 14.1 (6-22); Blood Urea Nitrogen 11 mg/dL (7-17); Calcium 8.6 mg/dL (8.4-10.2); Carbon Dioxide 29 mmol/L (22-32); Chloride 100 mmol/L (98-107); Estimated Glomerular Filt Rate > 60 mL/min (>60); Glucose 140 mg/dL (80-110); HEMOLYSIS < 15 (0-50); Potassium 3.8 mmol/L (3.4-5.1); Sodium 134 mmol/L (137-145)
== END 2023-03-27 04:46 | disposition home or self-care (01) ==
PROVIDERS: Emergency Provider Emergency Medicine; Family Provider Nurse Practitioner Family; PCP Nurse Practitioner
DX: K59.00 Constipation, unspecified (principal)
CPT/HCPCS: 36415; 74177; 80048; 85025; 99283; 99284; Q9967

== ENCOUNTER → 2023-03-30 15:10 | Outpatient (CLI) | payer MEDICARE, OTHER, SELFPAY ==
[2023-03-24 14:23] VITALS: BMI 28.1
--- NOTE | 2023-03-30 15:12 | DI.MRI.S_ITS ---
PROCEDURE: MR ABDOMEN ADRENAL PROTOCOL COMPARISON: [facility], MR, MR LUMBAR SPINE WO CON, 11/21/2019, 15:51. [facility], CT, CT ABDOMEN PELVIS W CON, 03/27/2023, 3:06. INDICATIONS: abnormal CT, adrenal mass noted FINDINGS: Lung bases: No pleural effusion. Liver: No T2 signal abnormality. Gallbladder: Decompressed. Bile ducts: No dilatation. Pancreas: No peripancreatic fluid collection. No pancreatic ductal dilatation. Spleen: No splenomegaly. Adrenal glands: Left adrenal nodule measuring 1.5 cm, (4/41), unchanged. There is signal dropout on the opposed phase images. No right adrenal nodule. Kidneys: No hydronephrosis. Large T2 hyperintense right renal cyst measuring 4.9 cm. IMPRESSION: Left adrenal nodule measuring 1.5 cm is in keeping with a benign adenoma. Dictated by: Doni Collado M.D. on 03/30/2023 at 15:53 Approved by: Doni Collado M.D. on 03/30/2023 at 16:00
== END ==
PROVIDERS: Family Provider Nurse Practitioner Family; PCP Nurse Practitioner; Referring Provider Nurse Practitioner; Visit Provider Nurse Practitioner
DX: R93.5 Abnormal findings on diagnostic imaging of other abdominal regions, including retroperitoneum (principal); E27.8 Other specified disorders of adrenal gland
CPT/HCPCS: 74181

== ENCOUNTER → 2023-05-30 15:56 | Outpatient (CLI) | payer MEDICARE, OTHER, SELFPAY ==
[2023-03-24 14:23] VITALS: BMI 28.1
--- NOTE | 2023-05-30 15:57 | DI.MG.S_ITS ---
BILATERAL DIGITAL SCREENING MAMMOGRAM 3D/2D WITH CAD: 05/30/2023 CLINICAL: Routine screening. Comparison is made to exams dated: 03/28/2022 mammogram, 03/20/2021 mammogram, and 03/18/2020 mammogram - [facility]. There are scattered areas of fibroglandular density in both breasts (category b / 25%-50% glandular tissue). Current study was also evaluated with a Computer Aided Detection (CAD) system. There are benign calcifications in both breasts. There also are benign vascular calcifications in both breasts. No significant masses, calcifications, or other findings are seen in either breast. There has been no significant interval change. IMPRESSION: BENIGN There is no mammographic evidence of malignancy. A 1 year screening mammogram is recommended. Based on the Tyrer Cuzick model (a risk assessment model) the patient's lifetime risk is 2.3% and her 10 year risk is 0.0%. According to the ACR, ACS, and NCCN guidelines, an annual breast MRI exam along with mammogram is recommended if the patient's lifetime risk is 20% or greater. This exam was interpreted at Station ID: [id number]. NOTE: For mammograms, a report in lay terms will be sent to the patient. Approximately 15% of breast malignancies will not be visualized mammographically. In the management of a palpable breast mass, a negative mammogram must not discourage biopsy of a clinically suspicious lesion. Electronically Signed By: Papo khan/garima:05/31/2023 16:48:17 letter sent: Normal Exam ACR BI-RADS Category 2: Benign Finding(s) 3342F
== END ==
PROVIDERS: PCP Nurse Practitioner; Referring Provider Nurse Practitioner; Visit Provider Nurse Practitioner
DX: Z12.31 Encounter for screening mammogram for malignant neoplasm of breast (principal)
CPT/HCPCS: 77063; 77067

== ENCOUNTER → 2023-06-19 07:17 | Outpatient (CLI) | payer MEDICARE, OTHER, SELFPAY ==
[2023-03-24 14:23] VITALS: BMI 28.1
[2023-06-19 08:07] LABS: Add Manual Diff / Slide Review NO; Basophils Absolute Auto 0 /uL (0-100); Basophils Percent Auto 0.6 % (0-2); Eosinophils Absolute Auto 100 /uL (0-450); Eosinophils Percent Auto 2.9 % (2-4); Hematocrit 40.1 % (36-46); Hemoglobin 13.6 g/dL (12.0-16.0); Lymphocytes Absolute Auto 1000 /uL (1100-4500); Lymphocytes Percent Auto 23.1 % (25-40); Mean Corpuscular HGB Conc 33.9 % (30-36); Mean Corpuscular Hemoglobin 30.7 PG (26-34); Mean Corpuscular Volume 90.5 fL (80-100); Monocytes Absolute Auto 700 /uL (0-900); Monocytes Percent Auto 16.7 % (3-14); Neutrophils Absolute Auto 2500 /uL (1500-7000); Neutrophils Percent Auto 56.7 % (50-75); Platelet Count 218 X10^3/uL (150-400); Red Blood Cell Count 4.43 X10^6/uL (4.0-5.2); Red Cell Distribution Width 13.7 % (11.6-14.8); White Blood Cell Count 4.3 X10^3/uL (4.5-11.0)
[2023-06-19 08:37] LABS: Creatinine Urine Random 16.8 mg/dL
[2023-06-19 08:42] LABS: Microalbumin Urine Random < 0.6 mg/dL (0-1.6)
[2023-06-19 08:46] LABS: Alanine Aminotransferase 23 IU/L (<35); Albumin 4.1 g/dL (3.5-5.0); Albumin Globulin Ratio 1.5 (1.0-2.8); Alkaline Phosphatase 58 U/L (38-126); Aspartate Aminotransferase 21 IU/L (14-36); BUN Creatinine Ratio 26.9 (6-22); Bilirubin Total 0.6 mg/dL (0.2-1.3); Blood Urea Nitrogen 21 mg/dL (7-17); Calcium 9.7 mg/dL (8.4-10.2); Carbon Dioxide 28 mmol/L (22-32); Chloride 100 mmol/L (98-107); Cholesterol 177 mg/dL (140-199); Estimated Glomerular Filt Rate > 60 mL/min (>60); Globulin 2.8 g/dL (1.7-4.1); Glucose 121 mg/dL (80-110); HDL Cholesterol 41 mg/dL (40-60); HEMOLYSIS < 15 (0-50); LDL Cholesterol Calculated 114 mg/dL (<100); Potassium 4.5 mmol/L (3.4-5.1); Sodium 135 mmol/L (137-145); Total Protein 6.9 g/dL (6.3-8.2); Triglycerides 110 mg/dL (35-150)
[2023-06-19 09:13] LABS: TSH w/ Reflex to FT4 1.03 uIU/mL (0.47-4.68)
[2023-06-19 16:15] LABS: Hep C Virus Ab w/Reflex Quant NEGATIVE s/c (NEGATIVE)
== END ==
PROVIDERS: PCP Nurse Practitioner; Referring Provider Family Medicine; Visit Provider Family Medicine
DX: E78.5 Hyperlipidemia, unspecified (principal); E79.0 Hyperuricemia without signs of inflammatory arthritis and tophaceous disease; I10 Essential (primary) hypertension; R73.01 Impaired fasting glucose
CPT/HCPCS: 36415; 80053; 80061; 82043; 82570; 84443; 85025; 86803

== ENCOUNTER → 2023-06-23 12:51 | Outpatient (CLI) | payer MEDICARE, OTHER, SELFPAY ==
[2023-03-24 14:23] VITALS: BMI 28.1
--- NOTE | 2023-06-23 12:52 | DI.RAD.S_ITS ---
Bone Density Report Name: PARI GUTIERREZ Age: 78 Sex: Female Ethnicity: White Date of : 1945 Indication: postmenopausal; screening for osteoporosis; Referring Provider: NATTY GUZMAN Study: Bone densitometry was performed. Exam Date: June 23, 2023 Accession number: [id number] Bone Density: Region BMD T-score Z-score Classification AP Spine(L1-L4) 0.938 -1.0 1.6 Normal Femoral Neck (Left) 0.606 -2.2 0.0 Osteopenia Total Hip (Left) 0.804 -1.1 0.8 Osteopenia Femoral Neck (Right) 0.609 -2.2 0.1 Osteopenia Total Hip (Right) 0.798 -1.2 0.8 Osteopenia Total Hip Mean 0.801 -1.2 0.8 Osteopenia World Health Organization criteria for BMD impression classify patients as: Normal (T-score at or above -1.0), Osteopenia (T-score between -1.0 and -2.5), or Osteoporosis (T-score at or below -2.5). 10-year Fracture Risk(1): Major Osteoporotic Fracture 15% Hip Fracture 4.5% Reported Risk Factors: [place] (), Neck BMD=0.606, BMI=28.9 (1) FRAX(R) Version 3.08. Fracture probability calculated for an untreated patient. Fracture probability may be lower if the patient has received treatment. Previous Exams: -- Region Exam Age BMD T-score BMD Change BMD Change Date g/cm2 vs Baseline vs Previous -- AP Spine (L1-L4) 06/23/2023 78 0.938 -1.0 -0.028 (-2.9%)# -0.028 (-2.9%)# 04/29/2020 75 0.966 -0.7 Total Hip(Left) 06/23/2023 78 0.804 -1.1 -0.074 (-8.4%)# -0.074 (-8.4%)# 04/29/2020 75 0.877 -0.5 Total Hip(Right) 06/23/2023 78 0.798 -1.2 -0.094 (-10.6%)# -0.094 (-10.6%)# 04/29/2020 75 0.892 -0.4 -- *Denotes significance at 95% confidence level, LSC for AP Spine = 0.022 g/cm2, LSC for Total Hip = 0.027 g/cm2 # Denotes dissimilar scan types or analysis methods Impression: The patient has low bone mass, based on the Left Femoral Neck T-score. The patient has an estimated ten-year risk of hip fracture of 4.5% and an estimated ten-year risk of major fracture of 15%, based on the WHO FRAX algorithm. No significant bone loss was observed. Discussion: BONE DENSITY IS LOW AT ONE OR MORE SKELETAL SITES. THE PATIENT'S BMD AND CLINICAL RISK FACTORS CONTRIBUTE TO THIS PATIENT'S INCREASED RISK OF FRACTURE. This patient's lowest T-score is low at one or more skeletal sites. It meets the World Health Organization's (WHO) criteria for low bone mass (T-score between -1.0 and -2.5). The patient's 10-year risk of hip fracture as calculated by FRAX exceeds the threshold where pharmacological therapy is recommended by the National Osteoporosis Foundation (NOF). However, all treatment decisions require clinical judgment and consideration of individual patient factors, including patient preferences, comorbidities, previous drug use, risk factors not captured in the FRAX model (e.g., frailty, falls, vitamin D deficiency, increased bone turnover, interval significant decline in bone density) and possible under or overestimation of fracture risk by FRAX. The patient should follow a healthful lifestyle (good nutrition with adequate calcium and vitamin D, and appropriate weight-bearing exercise). Follow-Up: Consider a repeat BMD and Vertebral Fracture Assessment (VFA) exam in 2 years or sooner if medically necessary, to reassess this patient's status. Reported by: SANJANA DAN M.D. on 06/23/2023 1:37:00 PM.
== END ==
PROVIDERS: PCP Nurse Practitioner; Referring Provider Family Medicine; Visit Provider Family Medicine
DX: Z13.820 Encounter for screening for osteoporosis (principal); Z78.0 Asymptomatic menopausal state; M85.89 Other specified disorders of bone density and structure, multiple sites
CPT/HCPCS: 77080

== ENCOUNTER 2023-09-26 09:37 | Day surgery (SDC) | payer MEDICARE, OTHER, SELFPAY ==
[2023-03-24 14:23] VITALS: BMI 28.1
[2023-09-26 10:00] VITALS: BMI 27.4
[2023-09-26 10:05] VITALS: BP 148/79; PULSE 62; RESP 17; TEMP 35.9; O2SAT 98
[2023-09-26] MEDS: LACTATED RINGERS 1,000 ML 42 ML IV (10:24)
--- NOTE | 2023-09-26 10:35 | P.HP_ITS ---
History of Present Illness History of Present Illness Date Patient Seen: 09/26/23 Chief complaint: Screening Colonoscopy Narrative: 78-year-old woman personal history of colonic polyps here for screening colonoscopy. Last colonoscopy 5 years ago. No family history of intestinal malignancy. No abdominal concerns today. [facility] Medical History (Updated 08/30/23 @ 13:54 by Jack Marin MD) Hemorrhoids PSVT (paroxysmal supraventricular tachycardia) Medicare annual wellness visit, subsequent (05/06/21) Bradycardia (04/2021) Intermittent chest pain (12/2020) GERD (gastroesophageal reflux disease) Irregular heart beat (12/2020) Screening mammogram, encounter for Microscopic hematuria Hyperlipidemia (1999) Hypertension (1999) Colon polyps Osteopenia Surgical History (Updated 03/28/23 @ 18:01 by EMI Frazier) H/O hysterectomy for benign disease Hx of removal of cyst Hx of colonoscopy (1989) History of bladder suspension procedure Hx of bilateral breast reduction surgery (1969) History of gynecologic surgery (01/15/21) Social History household members: spouse Smoking Status: Never smoker second hand exposure: No alcohol intake: never substance use type: does not use Meds Home Medications and Allergies Home Medications Medication Instructions Recorded Confirmed Type ascorbic acid (vitamin C) 1,000 mg 1 g PO DAILY ##0 10/13/11 09/26/23 History tablet (Vitamin C) cholecalciferol (vitamin D3) 25 1,000 iu PO Q DAY ##0 10/13/11 09/26/23 History mcg (1,000 unit) tablet (Vitamin D3) Probiotic See Rx Instructions .Route .COMPLEX 07/24/19 08/30/23 History ipratropium bromide 42 mcg (0.06 2 spray intranasal TID-QID PRN 01/22/20 09/26/23 Rx %) nasal spray allergy symptoms #15 mL famotidine 10 mg tablet (Pepcid AC) 10 mg PO BID 02/16/23 09/26/23 History mupirocin 2 % topical ointment 1 applic topical BID #22 grams 04/07/23 09/26/23 Rx atenolol 25 mg tablet 25 mg PO DAILY #90 tabs 06/19/23 09/26/23 Rx hydrochlorothiazide 12.5 mg tablet See Rx Instructions .Route 06/19/23 09/26/23 Rx .COMPLEX #90 tabs rosuvastatin 20 mg tablet 20 mg PO DAILY #90 tabs 06/19/23 09/26/23 Rx sodium,potassium,mag sulfates 17.5 See Rx Instructions PO .COMPLEX 07/20/23 Rx gram-3.13 gram-1.6 gram oral soln #354 mL (Suprep Bowel Prep Kit) omega [id number]-fish oil 1,000 mg 2 cap PO DAILY 09/26/23 09/26/23 History (120 mg-180 mg) capsule (Fish Oil) Allergies Allergy/AdvReac Type Severity Reaction Status Date / Time indomethacin [INDOMETHACIN] AdvReac Mild nausea and Verified 09/26/23 09:57 dizziness Exam Vital Signs (past 8 hours): - 09/26/23 10:05 Temperature 96.7 F L Pulse Rate 62 Respiratory Rate 17 Blood Pressure 148/79 H Pulse Oximetry 98 Oxygen Delivery Method Room Air Oxygen Delivery Method Room Air Narrative Exam Narrative: General adult woman alert oriented no acute distress Chest nonlabored respiration Extremities warm well perfused Assessment & Plan Assessment & Plan narrative: The patient requires colorectal screening and colonoscopy is recommended. Technical details were discussed. Risks, benefits, alternatives explained. Risks including but not limited to myocardial infarction, aspiration, bleeding, pain, missed lesion, incomplete examination, need for further radiographic studies, colonic perforation, and need for major abdominal surgery were di scussed. All questions were answered to their satisfaction, and they are in agreement with this plan.
--- NOTE | 2023-09-26 10:36 | P.OP.COLON_ITS ---
Operative Date/Time/Diagnoses Date of procedure: 09/26/23 Time of procedure: 11:13 Pre-op diagnosis: Personal history of colonic polyps Procedure & Clinicians Study performed: Colonoscopy Same procedure as scheduled: Yes Indications: Personal history of colonic polyps Colorectal screening Surgeon: Mike Aguero Procedure Notes Procedure in detail: The history and physical was performed/updated and the patient is ASA class is 2. The procedure was discussed in detail with the patient. Potential risks complications including infection, bleeding, missed diagnosis, perforation, need for surgery, and were explained. Their questions were answered and informed consent was obtained. Patient was brought to the procedure room and placed standard monitoring equipment. The patient's vital signs were monitored continuously throughout the entire procedure. Prior to starting time-out was performed. The patient was placed in the left lateral recumbent position. Procedural sedation was administered by anesthesia. Examination began with a thorough inspection of the perianal area there was no evidence of fissures, fistulae, external hemorrhoids or cutaneous malignancy. The colonoscopy scope was then placed into the anal canal and was advanced to the cecum, which was identified by the ileocecal valve, the appendiceal orifice and the confluence of the taenia. The scope was then slowly withdrawn examining colon thoroughly in all directions, irrigating it of any residual stool. The scope was retroflexed within the rectum The patient tolerated the procedure well. They will be discharged once criteria are met. The prep was of good/excellent quality. The withdrawl time was 12 minutes. FINDINGS * No masses or polyps. Specimen(s): none sent Impression: Normal colonoscopy Post-procedure Plan for aftercare: No need for further colonoscopy unless symptomatic Disposition: same day surgery
[2023-09-26 11:08] VITALS: BP 110/69; PULSE 67; RESP 18; TEMP 36.4; O2SAT 96
[2023-09-26 11:13] VITALS: BP 113/67; PULSE 63; RESP 16; O2SAT 96
[2023-09-26 11:18] VITALS: BP 105/58; PULSE 71; RESP 17; O2SAT 96
[2023-09-26 11:25] VITALS: BP 120/72; PULSE 61; RESP 17; O2SAT 96
== END 2023-09-26 11:47 | disposition home or self-care (01) ==
PROVIDERS: PCP Nurse Practitioner; Referring Provider Surgery; Visit Provider Surgery
PROC: 0DJD8ZZ Inspection of Lower Intestinal Tract, Via Natural or Artificial Opening Endoscopic (ICD-10-PCS; CPT 45378; principal; 2023-09-26 10:45)
DX: Z12.11 Encounter for screening for malignant neoplasm of colon (principal); Z86.010 Personal history of colon polyps
CPT/HCPCS: G0105; J2704

== ENCOUNTER → 2023-11-14 09:56 | Outpatient (CLI) | payer MEDICARE, OTHER, SELFPAY ==
[2023-03-24 14:23] VITALS: BMI 28.1
--- NOTE | 2023-11-14 10:01 | DI.RAD.S_ITS ---
PROCEDURE: XR FOOT LT MIN 3V INDICATIONS: pain dorsal mid foot TECHNIQUE: 3 views of the foot were acquired. COMPARISON: [facility], , FOOT 3V RIGHT, 11/02/2011, 9:55. FINDINGS: Bones: No fractures or dislocations. No suspicious bony lesions. Soft tissues: No tibiotalar joint effusion. Achilles tendon appears normal. IMPRESSION: No acute bony abnormality. Approved by: Karl Rodriguez M.D. on 11/14/2023 at 18:56
== END ==
PROVIDERS: PCP Nurse Practitioner; Referring Provider Podiatrist; Visit Provider Podiatrist
DX: M79.672 Pain in left foot (principal)
CPT/HCPCS: 73630

== ENCOUNTER → 2023-11-26 10:38 | Outpatient (CLI) | payer MEDICARE, OTHER, SELFPAY ==
[2023-03-24 14:23] VITALS: BMI 28.1
--- NOTE | 2023-11-26 10:40 | DI.MRI.S_ITS ---
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 After the administration of contrast, axial/sagittal/coronal T1 spin echo with fat saturation through the left foot. COMPARISON: [facility], CR, XR FOOT LT MIN 3V, 11/14/2023, 10:02. FINDINGS: Image quality: Excellent. Bones: Osteoarthritic changes are noted throughout midfoot and forefoot joints most notably involving 1st MTP joint and 3rd TMT joint with significant joint space narrowing, subchondral cystic changes and edema. No fracture or dislocation. No metatarsal stress fractures. No area of abnormal intraosseous enhancement. Soft tissues: There is no enhancing soft tissue mass or drainable fluid collection. Small amount of fluid within interspace between 1st and 2nd metatarsal heads as well as interspace between 3rd and 4th metatarsal head are seen which may represent intermetatarsal bursal fluid and bursitis. Lisfranc ligament is intact. Flexor and extensor tendons of midfoot and forefoot are intact. No abnormal plantar foot muscle signal or abnormal intramuscular enhancement. IMPRESSION: 1. 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 No fracture or dislocation. No abnormal intraosseous enhancement. No suspicious bony lesions. 2. No enhancing soft tissue mass or drainable fluid collection. Small amount of intermetatarsal fluid at 1st and 3rd interspaces concerning for intermetatarsal bursal fluid and bursitis. 3. Extensor and flexor tendons are grossly intact. Lisfranc ligament is intact. Dictated by: Ayan Guerra M.D. on 11/28/2023 at 10:02 Approved by: Ayan Guerra M.D. on 11/28/2023 at 12:01
== END ==
PROVIDERS: PCP Nurse Practitioner; Referring Provider Podiatrist; Visit Provider Podiatrist
DX: D21.22 Benign neoplasm of connective and other soft tissue of left lower limb, including hip (principal); M19.072 Primary osteoarthritis, left ankle and foot
CPT/HCPCS: 73720; A9579

== ENCOUNTER → 2023-12-05 10:12 | Outpatient (CLI) | payer MEDICARE, OTHER, SELFPAY ==
[2023-03-24 14:23] VITALS: BMI 28.1
[2023-12-05 11:01] LABS: Uric Acid 5.6 mg/dL (2.5-6.2)
== END ==
PROVIDERS: PCP Nurse Practitioner; Referring Provider Podiatrist; Visit Provider Podiatrist
DX: M10.9 Gout, unspecified (principal)
CPT/HCPCS: 36415; 84550

== ENCOUNTER → 2024-01-01 08:58 | Outpatient (CLI) | payer MEDICARE, OTHER, SELFPAY ==
[2023-03-24 14:23] VITALS: BMI 28.1
[2024-01-01 10:15] LABS: Hemoglobin A1C% w Est Avg Glu 6.3 % (4.0-6.0)
[2024-01-01 10:32] LABS: Alanine Aminotransferase 25 IU/L (<35); Albumin 3.9 g/dL (3.5-5.0); Albumin Globulin Ratio 1.6 (1.0-2.8); Alkaline Phosphatase 57 U/L (38-126); Aspartate Aminotransferase 24 IU/L (14-36); BUN Creatinine Ratio 22.8 (6-22); Bilirubin Total 0.5 mg/dL (0.2-1.3); Blood Urea Nitrogen 18 mg/dL (7-17); Calcium 9.4 mg/dL (8.4-10.2); Carbon Dioxide 29 mmol/L (22-32); Chloride 102 mmol/L (98-107); Estimated Glomerular Filt Rate > 60 mL/min (>60); Globulin 2.4 g/dL (1.7-4.1); Glucose 110 mg/dL (80-110); HEMOLYSIS < 15 (0-50); Potassium 4.3 mmol/L (3.4-5.1); Sodium 135 mmol/L (137-145); Total Protein 6.3 g/dL (6.3-8.2)
== END ==
PROVIDERS: PCP Nurse Practitioner; Referring Provider Family Medicine; Visit Provider Family Medicine
DX: I10 Essential (primary) hypertension (principal); R73.01 Impaired fasting glucose
CPT/HCPCS: 36415; 80053; 83036

== ENCOUNTER → 2024-01-08 09:38 | Outpatient (CLI) | payer MEDICARE, OTHER, SELFPAY ==
[2023-03-24 14:23] VITALS: BMI 28.1
[2024-01-08 12:08] LABS: Cholesterol 127 mg/dL (140-199); HDL Cholesterol 38 mg/dL (40-60); LDL Cholesterol Calculated 72 mg/dL (<100); Triglycerides 83 mg/dL (35-150)
== END ==
PROVIDERS: PCP Nurse Practitioner; Referring Provider Nurse Practitioner; Visit Provider Nurse Practitioner
DX: E78.5 Hyperlipidemia, unspecified (principal)
CPT/HCPCS: 36415; 80061

== ENCOUNTER → 2024-01-30 16:24 | Outpatient (CLI) | payer MEDICARE, OTHER, SELFPAY ==
[2023-03-24 14:23] VITALS: BMI 28.1
[2024-01-30 17:53] LABS: Uric Acid 6.3 mg/dL (2.5-6.2)
== END ==
PROVIDERS: PCP Nurse Practitioner; Referring Provider Podiatrist; Visit Provider Podiatrist
DX: M10.9 Gout, unspecified (principal)
CPT/HCPCS: 36415; 84550

== ENCOUNTER → 2024-05-28 14:50 | Outpatient (CLI) | payer MEDICARE, OTHER, SELFPAY ==
[2023-03-24 14:23] VITALS: BMI 28.1
--- NOTE | 2024-05-28 | DI.RAD.S_ITS ---
PROCEDURE: XR FOOT RT MIN 3V INDICATIONS: Pain in right foot TECHNIQUE: 3 views of the foot were acquired. COMPARISON: [facility], CR, XR FOOT LT MIN 3V, 11/14/2023, 10:02. FINDINGS: Bones: A small old ununited fracture through the dorsal navicular appreciated. No other focal osseous abnormalities. There is minor calcification indicating a plantar tendon insertion on the calcaneus. Pes planus noted. Severe degenerative changes noted in 1st MTP -other joint spaces are normal. Soft tissues: No tibiotalar joint effusion. Moderate diffuse off-line appreciated. IMPRESSION: Moderate diffuse soft tissue swelling either edema or cellulitis. Other chronic findings as described Dictated by: Sagar Pickering M.D. on 05/29/2024 at 15:32 Approved by: Sagar Pickering M.D. on 05/29/2024 at 15:34
== END ==
LOC: RAD 14:52
PROVIDERS: PCP Nurse Practitioner Family; Referring Provider Podiatrist Foot & Ankle Surgery; Visit Provider Podiatrist Foot & Ankle Surgery
DX: M79.671 Pain in right foot (principal); M79.89 Other specified soft tissue disorders
CPT/HCPCS: 73630

== ENCOUNTER → 2024-06-10 11:35 | Outpatient (CLI) | payer MEDICARE, OTHER, SELFPAY ==
[2023-03-24 14:23] VITALS: BMI 28.1
--- NOTE | 2024-06-10 | DI.MG.S_ITS ---
BILATERAL DIGITAL SCREENING MAMMOGRAM 3D/2D WITH CAD: 06/10/2024 CLINICAL: Routine screening. Comparison is made to exams dated: 05/30/2023 mammogram, 03/28/2022 mammogram, 03/20/2021 mammogram, and 03/18/2020 mammogram - [facility]. There are scattered areas of fibroglandular density (category b / 25%-50% glandular tissue). Current study was also evaluated with a Computer Aided Detection (CAD) system. No significant masses, calcifications, or other findings are seen in either breast. There has been no significant interval change. IMPRESSION: NEGATIVE There is no mammographic evidence of malignancy. A 1 year screening mammogram is recommended. Based on the Tyrer Cuzick model (a risk assessment model) the patient's lifetime risk is 2.0% and her 10 year risk is 0.0%. According to the ACR, ACS, and NCCN guidelines, an annual breast MRI exam along with mammogram is recommended if the patient's lifetime risk is 20% or greater. This exam was interpreted at Station ID: [id number]. NOTE: For mammograms, a report in lay terms will be sent to the patient. Approximately 15% of breast malignancies will not be visualized mammographically. In the management of a palpable breast mass, a negative mammogram must not discourage biopsy of a clinically suspicious lesion. Electronically Signed By: Leigh Bullock M.D., Ph.D. terry/garima:06/11/2024 08:39:56 letter sent: Normal Exam ACR BI-RADS Category 1: Negative
== END ==
PROVIDERS: PCP Nurse Practitioner Family; Referring Provider Nurse Practitioner Family; Visit Provider Nurse Practitioner Family
DX: Z12.31 Encounter for screening mammogram for malignant neoplasm of breast (principal)
CPT/HCPCS: 77063; 77067

== ENCOUNTER → 2024-06-24 07:39 | Outpatient (CLI) | payer MEDICARE, OTHER, SELFPAY ==
[2023-03-24 14:23] VITALS: BMI 28.1
[2024-06-24 09:17] LABS: Add Manual Diff / Slide Review NO; Basophils Absolute Auto 0 /uL (0-100); Basophils Percent Auto 0.6 % (0-2); Eosinophils Absolute Auto 100 /uL (0-450); Eosinophils Percent Auto 2.7 % (2-4); Hematocrit 33.6 % (36-46); Hemoglobin 11.3 g/dL (12.0-16.0); Lymphocytes Absolute Auto 1000 /uL (1100-4500); Lymphocytes Percent Auto 18.7 % (25-40); Mean Corpuscular HGB Conc 33.6 % (30-36); Mean Corpuscular Hemoglobin 28.3 PG (26-34); Mean Corpuscular Volume 84.1 fL (80-100); Monocytes Absolute Auto 700 /uL (0-900); Monocytes Percent Auto 12.9 % (3-14); Neutrophils Absolute Auto 3500 /uL (1500-7000); Neutrophils Percent Auto 65.1 % (50-75); Platelet Count 239 X10^3/uL (150-400); Red Blood Cell Count 3.99 X10^6/uL (4.0-5.2); Red Cell Distribution Width 16.1 % (11.6-14.8); White Blood Cell Count 5.3 X10^3/uL (4.5-11.0)
[2024-06-24 09:41] LABS: Blood Urea Nitrogen 16 mg/dL (7-17); Carbon Dioxide 27 mmol/L (22-32); Chloride 99 mmol/L (98-107); Estimated Glomerular Filt Rate > 60 mL/min (>60); Glucose 126 mg/dL (80-110); HEMOLYSIS < 15 (0-50); Potassium 3.8 mmol/L (3.4-5.1); Sodium 132 mmol/L (137-145)
[2024-06-24 09:56] LABS: Free T4, Direct Thyroxine 1.05 ng/dL (0.78-2.19)
[2024-06-24 10:10] LABS: Thyroid Stimulating Hormone 0.111 uIU/mL (0.47-4.68)
== END ==
PROVIDERS: PCP Nurse Practitioner Family; Referring Provider Internal Medicine Cardiovascular Disease; Visit Provider Internal Medicine Cardiovascular Disease
DX: I10 Essential (primary) hypertension (principal); R06.02 Shortness of breath; E78.5 Hyperlipidemia, unspecified
CPT/HCPCS: 36415; 80048; 84439; 84443; 85025

== ENCOUNTER → 2024-07-22 07:26 | Outpatient (CLI) | payer MEDICARE, OTHER, SELFPAY ==
[2023-03-24 14:23] VITALS: BMI 28.1
[2024-07-22 09:24] LABS: Hemoglobin A1C% w Est Avg Glu 6.7 % (4.0-6.0)
[2024-07-22 10:20] LABS: TSH w/ Reflex to FT4 1.44 uIU/mL (0.47-4.68)
== END ==
PROVIDERS: PCP Nurse Practitioner Family; Referring Provider Nurse Practitioner Family; Visit Provider Nurse Practitioner Family
DX: R73.01 Impaired fasting glucose (principal); I10 Essential (primary) hypertension; E78.2 Mixed hyperlipidemia; K21.9 Gastro-esophageal reflux disease without esophagitis; D58.2 Other hemoglobinopathies; R94.6 Abnormal results of thyroid function studies
CPT/HCPCS: 36415; 83036; 84443

== ENCOUNTER → 2024-08-07 07:42 | Outpatient (CLI) | payer MEDICARE, OTHER, SELFPAY ==
[2023-03-24 14:23] VITALS: BMI 28.1
--- NOTE | 2024-08-07 17:51 | DI.NM.S_ITS ---
DATE OF SERVICE: 08/07/2024 NUCLEAR CARDIOLOGY MYOCARDIAL PERFUSION STUDY PROCEDURE PERFORMED: Pharmacologic vasodilator stress and rest myocardial perfusion imaging with gating to assess ejection fraction and regional wall motion. ORDERING PROVIDER: Madyson Garcia M.D. INDICATION: The patient is a 79-year-old female with exertional dyspnea and hyperlipidemia. CARDIAC STRESS: Per protocol, 0.4 mg of regadenoson was infused, augmented by walking on the treadmill. With this, she had a normal heart rate and blood pressure response, achieving a maximum heart rate of 133 bpm (94% of her predicted maximum). She had no chest discomfort or other anginal symptoms. Her resting ECG shows sinus rhythm with frequent PACs, at times in a bigeminal pattern, but normal ST segments. With stress, there are no significant ST-segment shifts and no arrhythmias. Per protocol, 27.5 millicuries of technetium-99m Myoview was injected and she was imaged 15 minutes later using a gated SPECT acquisition protocol. Earlier in the day while at rest, she had been injected with 12.0 millicuries of technetium-99m Myoview and was imaged 15 minutes later, again using a gated SPECT acquisition protocol. FINDINGS: 1. Raw data: There is fairly good myocardial tracer uptake although with xeme-lx-aaeahlmx breast shadows noted. The lung/heart ratio is normal at 0.20 with a normal TID ratio of 0.96. 2. Quantitative gated SPECT: Post-stress ejection fraction is 83% without any focal wall motion abnormality. The resting ejection fraction is 85% with a normal resting end-diastolic volume of 66 mL. 3. Myocardial perfusion imaging: Post-stress supine images show a normal myocardial perfusion pattern without any perfusion defects, supported by normal perfusion imaging in the prone position. The resting images show an identical perfusion pattern without any areas of improvement. IMPRESSION: 1. Normal myocardial perfusion study. 2. No evidence for myocardial ischemia or previous myocardial infarction. 3. Normal left ventricular size and systolic function without focal wall motion abnormality. 4. No angina or ECG evidence of ischemia with pharmacologic vasodilator stress augmented by walking. She was noted to have frequent PACs at rest, at times in a bigeminal pattern, but no other arrhythmias. Christen Payne - RS/beverly/TOM doc#: [id number]/job#: [id number] dd: 08/07/2024 16:46:00 dt: 08/07/2024 17:33:00 DICTATING MD/COPIES TO: Hécotr Gaspar MD; Madyson Garcia M.D. COPIES MNE: JOSH;
--- NOTE | 2024-08-10 08:11 | DI.ECHO.S_ITS ---
[facility] : : [id number] : : [place] : : [id number] : : Phone: [phone] Echocardiogram Report + + :Name: PARI GUTIERREZ Study Date: 08/10/2024 Height: 64 in : :[facility] ReadingLocation: Weight: 165 lb : : Gender: Female BSA: 1.8 m2 : :: 1945 Age: 79 yrs BP: 141/86 mmHg: :Reason For Study: SHORTNESS OF BREATH : :Ordering Physician: PADMINI, : :MADYSON Nguyen Performed By: Karina Amezquita : :Referring: MADYSON GARCIA : + + Interpretation Summary The ejection fraction is estimated to be 65-70%. Diastolic parameters suggest probable normal left ventricular diastolic function and normal filling pressures. The right ventricle is normal in size and function. There is mild mitral regurgitation. There is mild tricuspid regurgitation. The right ventricular systolic pressure is estimated to be at least 27 mmHg based on an estimated right atrial pressure of 3 mm Hg. Compared to the prior study dated 05/25/2021, no change. Procedure: A two-dimensional transthoracic echocardiogram with color flow and Doppler was performed. The study quality was technically adequate. Comparison is made with the echocardiogram of 05/25/2021. The patient was in sinus rhythm with heart rates between 60-68 bpm during the exam. Left Ventricle: The left ventricle is normal in size and wall thickness. The ejection fraction is estimated to be 65-70%. Diastolic parameters suggest probable normal left ventricular diastolic function and normal filling pressures. Right Ventricle: The right ventricle is normal in size and function. Atria: The left atrial size is normal. Right atrial size is normal. There is no Doppler evidence for an interatrial shunt. Mitral Valve: The mitral valve is normal. There is mild mitral regurgitation. Aortic Valve: The aortic valve is trileaflet. The aortic valve opens well. There is no aortic valve stenosis. No aortic regurgitation is present. Tricuspid Valve: The tricuspid valve is normal. There is mild tricuspid regurgitation. The right ventricular systolic pressure is estimated to be at least 27 mmHg based on an estimated right atrial pressure of 3 mm Hg. Pulmonic Valve: The pulmonic valve leaflets are thin and pliable; valve motion is normal. There is mild pulmonic regurgitation. Great Vessels: The aortic root is normal size. The dimensions of the ascending aorta are normal. The IVC is of normal diameter and collapses greater than 50% with a sniff. This suggests a low right atrial pressure of 3 mm Hg. Pericardium/ Pleura There is no pericardial effusion. There is no pleural effusion. MMode/2D Measurements & Calculations LVIDd: 4.7 cm LVOT diam: 2.0 cm LVIDs: 2.9 cm Ao root diam: 3.0 cm FS: 38.8 % asc Aorta Diam: 3.1 cm EPSS: 0.32 cm Ao Arch Diam (Prox Trans): 2.6 cm IVSd: 0.96 cm LVPWd: 0.93 cm LV cobian. diameter/BSA (cm/m^2): 2.6 LV sys. diameter/BSA (cm/m^2): 1.6 LA A2 area: 16.1 cm2 RA long axis: 4.6 cm LA A4 area: 16.1 cm2 RA area: 13.3 cm2 LA length (vol): 4.6 cm RA vol: 32.8 ml LA vol: 47.6 ml RA : 18.2 ml/m2 LA vol index: 26.4 ml/m2 IVC diam: 1.2 cm RVD1 (basal): 3.2 cm TAPSE: 1.9 cm Doppler Measurements & Calculations Ao V2 max: 135.3 cm/sec LVOT Max Norman: 106.6 cm/sec Ao V2 mean: 96.0 cm/sec LV V1 max P.5 mmHg Ao max P.3 mmHg LV V1 VTI: 26.5 cm Ao mean P.0 mmHg NADEGE(I,D): 2.6 cm2 Ao V2 VTI: 32.1 cm NADEGE(V,D): 2.4 cm2 sev ratio: 0.82 NADEGE indexed to BSA (cm^2/m^2): 1.4 MV E max norman: 65.6 cm/sec TR max norman: 245.1 cm/sec MV A max norman: 84.1 cm/sec TR max P.0 mmHg MV E/A: 0.78 PA V2 max: 101.4 cm/sec Med Peak E' Norman: 4.2 cm/sec PA V2 mean: 62.7 cm/sec E/E' med: 15.8 PA mean P.9 mmHg Lat Peak E' Norman: 7.1 cm/sec PA pr(Accel): 43.0 mmHg E/E' lat: 9.2 E/e' average: 12.5 MV dec time: 0.27 sec [facility] 82.1 ml Reading Physician:12:49 PM
== END ==
PROVIDERS: PCP Nurse Practitioner Family; Referring Provider Internal Medicine Cardiovascular Disease; Visit Provider Internal Medicine Cardiovascular Disease
DX: I08.1 Rheumatic disorders of both mitral and tricuspid valves (principal); R06.02 Shortness of breath; E78.5 Hyperlipidemia, unspecified; R06.00 Dyspnea, unspecified
CPT/HCPCS: 78452; 93017; A9502; J2785

== ENCOUNTER → 2024-11-11 08:08 | Outpatient (CLI) | payer MEDICARE, OTHER, SELFPAY ==
[2023-03-24 14:23] VITALS: BMI 28.1
[2024-11-11 09:15] LABS: Alanine Aminotransferase 24 IU/L (<35); Albumin 4.1 g/dL (3.5-5.0); Albumin Globulin Ratio 1.7 (1.0-2.8); Alkaline Phosphatase 59 U/L (38-126); Aspartate Aminotransferase 23 IU/L (14-36); BUN Creatinine Ratio 17.3 (6-22); Bilirubin Total 0.4 mg/dL (0.2-1.3); Blood Urea Nitrogen 14 mg/dL (7-17); Calcium 9.6 mg/dL (8.4-10.2); Carbon Dioxide 29 mmol/L (22-32); Chloride 100 mmol/L (98-107); Cholesterol 144 mg/dL (140-199); Estimated Glomerular Filt Rate > 60 mL/min (>60); Globulin 2.4 g/dL (1.7-4.1); Glucose 108 mg/dL (80-110); HDL Cholesterol 48 mg/dL (40-60); HEMOLYSIS < 15 (0-50); LDL Cholesterol Calculated 82 mg/dL (<100); Magnesium 1.7 mg/dL (1.6-2.3); Potassium 4.5 mmol/L (3.4-5.1); Sodium 135 mmol/L (137-145); Total Protein 6.5 g/dL (6.3-8.2); Triglycerides 68 mg/dL (35-150)
[2024-11-11 09:17] LABS: Hemoglobin A1C% w Est Avg Glu 6.2 % (4.0-6.0)
== END ==
PROVIDERS: PCP Nurse Practitioner Family; Referring Provider Internal Medicine Cardiovascular Disease; Visit Provider Internal Medicine Cardiovascular Disease
DX: E78.5 Hyperlipidemia, unspecified (principal); R00.1 Bradycardia, unspecified; I10 Essential (primary) hypertension; E08.65 Diabetes mellitus due to underlying condition with hyperglycemia
CPT/HCPCS: 36415; 80053; 80061; 83036; 83735

== ENCOUNTER → 2025-04-02 14:50 | Outpatient (CLI) | payer MEDICARE, OTHER, SELFPAY ==
[2023-03-24 14:23] VITALS: BMI 28.1
[2025-04-02 15:52] LABS: Hemoglobin A1C% w Est Avg Glu 6.0 % (4.0-6.0)
[2025-04-02 15:59] LABS: Blood Urea Nitrogen 16 mg/dL (7-17); Calcium 9.7 mg/dL (8.4-10.2); Carbon Dioxide 28 mmol/L (22-32); Chloride 100 mmol/L (98-107); Cholesterol 167 mg/dL (140-199); Estimated Glomerular Filt Rate > 60 mL/min (>60); Glucose 84 mg/dL (70-99); HDL Cholesterol 51 mg/dL (40-60); HEMOLYSIS < 15 (0-50); Potassium 4.8 mmol/L (3.4-5.1); Sodium 135 mmol/L (137-145); Triglycerides 88 mg/dL (35-150)
== END ==
PROVIDERS: PCP Nurse Practitioner Family; Referring Provider Nurse Practitioner Family; Visit Provider Nurse Practitioner Family
DX: E78.2 Mixed hyperlipidemia (principal); I10 Essential (primary) hypertension; R73.03 Prediabetes; R73.01 Impaired fasting glucose
CPT/HCPCS: 36415; 80048; 80061; 83036

== ENCOUNTER → 2025-07-03 15:44 | Outpatient (CLI) | payer MEDICARE, OTHER, SELFPAY ==
[2023-03-24 14:23] VITALS: BMI 28.1
--- NOTE | 2025-07-03 15:45 | DI.MG.S_ITS ---
MM screening mammo BI: 07/03/2025. BI-RADS: 1 CLINICAL: 80-year old female for bilateral screening mammogram. Tyrer-Cuzick lifetime risk of 1.4%. No personal or first-degree family history of breast cancer. The patient is status-post reduction mammoplasty. PRIOR EXAMS 06/10/2024, 05/30/2023, 05/27/2022, 03/28/2022, MAMMOGRAPHY TECHNIQUE: 2D and 3D (tomosynthesis) digital mammographic views obtained, with additional images as needed for full coverage. Current study was also evaluated with a Computer Aided Detection (CAD) system. DENSITY A. The breasts are almost entirely fatty. MAMMOGRAPHY FINDINGS Bilateral: No suspicious mass, asymmetry, microcalcification, or other abnormality seen. IMPRESSION: * No evidence of malignancy. RECOMMENDATIONS Bilateral * Annual screening mammography. OVERALL ASSESSMENT CATEGORY BI-RADS-1: Negative. The [employer] recommends annual screening mammography beginning at age 40 for women with average risk of breast cancer. ELECTRONICALLY SIGNED: Leigh Bullock M.D. on 07/04/2025 at 04:46:49 PM PT Interpreting Station ID: [id number]
== END ==
PROVIDERS: PCP Nurse Practitioner Family; Referring Provider Nurse Practitioner Family; Visit Provider Nurse Practitioner Family
DX: Z12.31 Encounter for screening mammogram for malignant neoplasm of breast (principal); R92.313 Mammographic fatty tissue density, bilateral breasts
CPT/HCPCS: 77063; 77067